=== PATIENT | female | born 1990 | race Caucasian/White ===

== ENCOUNTER → 2018-02-25 | Outpatient (CLI) | payer BC | END | disposition home or self-care (01) | LOC: LABWHC1 15:33 | PROVIDERS: ATTEND Internal Medicine Endocrinology, Diabetes & Metabolism | DX: E11.65 Type 2 diabetes mellitus with hyperglycemia (principal) | CPT/HCPCS: 36415; 82947; 84681 ==

== ENCOUNTER 2018-03-26 13:02 | Emergency (ER) | payer BC ==
[2018-03-26] MEDS ORDERED: LIDOCAINE/EPINEPHR/TETRACAINE 5 ML BOTTLE TOPICAL ONE (13:31)
[2018-03-26] MEDS ORDERED: LIDOCAINE 1% INJ 10MG/ML (20 ML MDV) SQ STA (13:32)
--- NOTE | 2018-03-26 14:44 | ED ---
Skin/Abscess/FB HPI - General Chief complaint: Skin/Abscess/Foreign Body Stated complaint: Female Time Seen by Provider: 03/26/18 13:11 Source: patient, RN notes reviewed, old records reviewed Mode of arrival: ambulatory Limitations: no limitations - History of Present Illness Initial comments: 27-year-old female presents today with swelling over the right side of her volva for the past week. Patient said she had two small pimples that had formed into one large abscess at this time. Patient states that she is had this happen before but she's always taking care of them on her own. Patient states that it' s painful for her to sit.Patient denies any fever chills. She denies any dysuria or hematuria.Patient also states that she was recently treated for a herpes infection. She say said that has cleared up at this time. Patient reports that she also has been shaving her pubic region which likely caused the initial pimples. - Related Data Home Medications Medication Instructions Recorded Confirmed Acyclovir 800 mg PO BID 03/26/18 03/26/18 glipiZIDE [Glucotrol] 5 mg PO DAILY 03/26/18 03/26/18 metFORMIN HCL 1,000 mg PO DAILY 03/26/18 03/26/18 Previous Rx's Medication Instructions Recorded Acetaminophen-Codeine 300-30mg 1 tab PO Q4H PRN 3 Days #18 tablet 03/26/18 [Tylenol w/codeine #3] Cephalexin [Keflex] 500 mg PO Q6H #40 cap 03/26/18 Sulfamethox-Tmp 800-160Mg [Bactrim 2 tab PO DAILY #40 tab 03/26/18 DS 800-160 mg] Allergies Allergy/AdvReac Type Severity Reaction Status Date / Time No Known Allergies Allergy Verified 03/26/18 13:45 Review of Systems ROS Statement: Those systems with pertinent positive or pertinent negative responses have been documented in the HPI. ROS Other: All systems not noted in ROS Statement are negative. Past Medical History Past Medical History: No Reported History History of Any Multi-Drug Resistant Organisms: None Reported Past Surgical History: Section, Tonsillectomy Past Psychological History: Anxiety Smoking Status: Never smoker Past Alcohol Use History: Occasional Past Drug Use History: None Reported General Exam - General Exam Comments Initial Comments: Pleasant 27 year old female. Limitations: no limitations General appearance: alert, in no apparent distress Head exam: Present: atraumatic, normocephalic, normal inspection Eye exam: Present: normal appearance, PERRL, EOMI. Absent: scleral icterus, conjunctival injection, periorbital swelling ENT exam: Present: normal exam, mucous membranes moist Neck exam: Present: normal inspection. Absent: tenderness, meningismus, lymphadenopathy Respiratory exam: Present: normal lung sounds bilaterally. Absent: respiratory distress, wheezes, rales, rhonchi, stridor Cardiovascular Exam: Present: regular rate, normal rhythm, tachycardia (120 bpm. Patient is anxious), normal heart sounds. Absent: systolic murmur, diastolic murmur, rubs, gallop, clicks GI/Abdominal exam: Present: soft, normal bowel sounds. Absent: distended, tenderness, guarding, rebound, rigid External exam: Present: erythema (erythema and palpable 5cm abscess over right vulva. ). Absent: normal external exam Speculum exam: Present: normal speculum exam By manual exam: Present: normal by manual exam Extremities exam: Present: normal inspection, full ROM, normal capillary refill. Absent: tenderness, pedal edema, joint swelling, calf tenderness Back exam: Present: normal inspection Neurological exam: Present: alert, oriented X3, CN II-XII intact Psychiatric exam: Present: normal affect, normal mood Skin exam: Present: warm, dry, intact, normal color. Absent: rash Course Vital Signs 03/26/18 03/26/18 13:12 14:51 Temperature 98.8 F 99.0 F Pulse Rate 121 H 122 H Respiratory 20 15 Rate Blood Pressure 139/82 125/79 O2 Sat by Pulse 97 97 Oximetry Procedures - Incision & Drainage Consent Obtained: verbal consent Site: vulva/vagina (Right vulva) Size (cm): 5 Anesthetic Used: lidocaine 1% Amount (mLs): 5 I&D Cleaning Method: Iodine Sterile Field Used?: Yes Scalpel Used: #11 I&D Drainage Obtained: Pus, Blood Packing: Iodoform Culture Obtained?: Yes Patient Tolerated Procedure: well, no complications Medical Decision Making - Medical Decision Making 27 year old presents with R vulva abscess related to shaving one week ago. She has underwent incision and drainage, approximately 10 cc of purulent fluid removed. At this time patient placed with iodoform gauze. Started on keflex and bactrim, aerobic wound culture obtained. She tolerated procedure well. Discussed return parameters including fever, chills, or worsening swelling. Discussed PCP and OB follow up. Discussed removing packing in 2 days and warm epsom salt baths. All questions answered. Disposition Clinical Impression: Vulvar abscess Disposition: HOME SELF-CARE Condition: Good Instructions: Abscess Incision and Drainage (ED), Abscess (ED) Additional Instructions: Patient advised to do warm Epsom salts soaks. Leave the packing in for the next 2 days. Taking all the antibiotics as prescribed. Follow-up promptly with primary care physician and [facility] [employer]. Return to the emergency department if any alarming signs or symptoms occur. Prescriptions: Acetaminophen-Codeine 300-30mg [Tylenol w/codeine #3] 1 tab PO Q4H PRN 3 Days # 18 tablet PRN Reason: Pain Cephalexin [Keflex] 500 mg PO Q6H #40 cap Sulfamethox-Tmp 800-160Mg [Bactrim DS 800-160 mg] 2 tab PO DAILY #40 tab Is patient prescribed a controlled substance at d/c from ED?: Yes When asked, does pt state using other controlled substances?: Yes If prescribed controlled substance>3 days was MAPS reviewed?: Prescribed <3 Days If opioid is for acute pain is fill amount 7 days or less?: Yes If Rx opioid, was Start Talking consent form obtained?: No Referrals: Davin Babcock MD [Primary Care Provider] - 1-2 days Efrain Causey MD [STAFF PHYSICIAN] - 1-2 days Time of Disposition: 14:43
[2018-03-26 14:52] VITALS: BP 125/79; PULSE 122; RESP 15; TEMP 99
== END 2018-03-26 14:58 | disposition home or self-care (01) ==
LOC: EC 13:02
DX: N76.4 Abscess of vulva (principal); Z79.84 Long term (current) use of oral hypoglycemic drugs; Z79.899 Other long term (current) drug therapy
CPT/HCPCS: 87070; 87205; 87077; 87186; 99283; 56405; J2001

== ENCOUNTER 2018-06-10 19:56 | Emergency (ER) | payer BC ==
[2018-06-10 20:53] LABS: Appearance,Urine Cloudy (Clear); Bilirubin,Urine Negative (Negative); Blood,Urine Large (Negative); Color,Urine Yellow; Glucose,Urine (UA) 4+ (Negative); Leukocyte Esterase,Urine Large (Negative); Mucus,Urine Rare /hpf; Nitrite,Urine Positive (Negative); PH, Urine 6.5 (5.0-8.0); Protein,Urine 2+ (Negative); RBC,Urine >182 /hpf (0-5); Specific Gravity,Urine 1.028 (1.001-1.035); Squamous Epithelial Cell,Urine 2 /hpf (0-4); Urobilinogen,Urine <2.0 mg/dL (<2.0); WBC,Urine >182 /hpf (0-5)
[2018-06-10 20:57] LABS: Ketones,Urine 2+ (Negative)
[2018-06-10] MEDS ORDERED: KETOROLAC 30 MG/ML 1 ML VIAL IVP STA (21:32)
[2018-06-10 21:36] LABS: Basophils % (A) 0 %; Eosinophils # (A) 0.2 k/uL (0-0.7); Eosinophils % (A) 2 %; HCT 42.3 % (34.0-46.0); HGB 15.2 gm/dL (11.4-16.0); Lymphocytes % (A) 20 %; MCV 94.2 fL (80.0-100.0); Monocytes # (A) 0.3 k/uL (0-1.0); Monocytes % (A) 3 %; Neutrophils # (A) 7.5 k/uL (1.3-7.7); Neutrophils % (A) 75 %; Platelet Count 248 k/uL (150-450); RBC 4.49 m/uL (3.80-5.40); RDW 12.6 % (11.5-15.5)
[2018-06-10] MEDS ORDERED: SODIUM CHLORIDE 0.9% 1,000 ML IV ONE ×2 (21:37→22:20)
--- NOTE | 2018-06-10 21:37 | ED ---
Abdominal Pain HPI - General Chief Complaint: Abdominal Pain Stated Complaint: Right Side Pain Time Seen by Provider: 06/10/18 21:07 Source: patient Mode of arrival: ambulatory Limitations: no limitations - History of Present Illness Initial Comments: This patient is a 27-year-old woman who presents to be evaluated for right lower quadrant abdominal pain. The patient states that she had been having what she thought were urinary tract infection type symptoms since Friday. She states that this meant that she was having a little bit of dysuria, frequency, and she noticed there was an odor to her urine. She states that since this morning little after 8, she has been experiencing colicky, sharp, right lower quadrant pains. She has not noted worsening or relieving factors. She states that the pain will become intense for 15 or 30 seconds, and then is moderate. It does not completely resolve. She has not noted any other coming symptoms. She denies nausea or vomiting. No real change in bowel movements. Last period ended approximately a week ago and was normal for her. MD Complaint: abdominal pain Onset/Timin -: hour(s) Location: RLQ Severity: moderate Quality: stabbing Consistency: colicky Improves With: nothing Worsens With: nothing Associated Symptoms: dysuria - Related Data Home Medications Medication Instructions Recorded Confirmed Acyclovir 800 mg PO BID 03/26/18 06/10/18 glipiZIDE [Glucotrol] 5 mg PO DAILY 03/26/18 06/10/18 metFORMIN HCL 1,000 mg PO DAILY 03/26/18 06/10/18 Albuterol Inhaler [Ventolin Hfa 1 - 2 puff INHALATION RT-Q6H PRN 06/10/18 Inhaler] [id number] [id number] 2 tab PO Q4HR PRN 06/10/18 06/10/18 [Excedrin] Ibuprofen [Motrin Ib] 800 - 1,200 mg PO Q6H PRN 06/10/18 06/10/18 Previous Rx's Medication Instructions Recorded Cephalexin [Keflex] 500 mg PO Q6HR #28 cap 06/10/18 Ciprofloxacin HCl [Cipro] 500 mg PO Q12HR #14 tablet 06/10/18 Allergies Allergy/AdvReac Type Severity Reaction Status Date / Time No Known Allergies Allergy Verified 10/10/18 21:29 Review of Systems ROS Statement: Those systems with pertinent positive or pertinent negative responses have been documented in the HPI. ROS Other: All systems not noted in ROS Statement are negative. Constitutional: Denies: fever, chills Respiratory: Denies: cough, dyspnea Cardiovascular: Denies: chest pain, palpitations, edema Gastrointestinal: Reports: abdominal pain. Denies: nausea, vomiting, diarrhea, constipation, melena, hematochezia Genitourinary: Reports: dysuria, frequency. Denies: hematuria, discharge, abnormal menses Musculoskeletal: Denies: back pain Skin: Denies: rash Neurological: Denies: headache, weakness, numbness Past Medical History Past Medical History: No Reported History History of Any Multi-Drug Resistant Organisms: MRSA Date of last positivie culture/infection: 03/26/18 MDRO Source:: WOUND Past Surgical History: Section, Tonsillectomy Past Psychological History: Anxiety Smoking Status: Never smoker Past Alcohol Use History: Occasional Past Drug Use History: None Reported General Exam Limitations: no limitations General appearance: alert, in no apparent distress Head exam: Present: atraumatic, normocephalic Eye exam: Present: normal appearance. Absent: scleral icterus, conjunctival injection ENT exam: Present: normal oropharynx Neck exam: Present: normal inspection Respiratory exam: Present: normal lung sounds bilaterally. Absent: respiratory distress, wheezes, rales, rhonchi, stridor Cardiovascular Exam: Present: regular rate, normal rhythm, normal heart sounds. Absent: systolic murmur, diastolic murmur, rubs, gallop GI/Abdominal exam: Present: soft, normal bowel sounds. Absent: distended, tenderness, guarding, rebound, rigid, mass, pulsatile mass, hernia Extremities exam: Present: normal inspection, normal capillary refill. Absent: pedal edema, calf tenderness Back exam: Present: normal inspection. Absent: CVA tenderness (R), CVA tenderness (L) Neurological exam: Present: alert Skin exam: Present: warm, dry, intact, normal color. Absent: rash Course Vital Signs 06/10/18 06/10/18 20:14 23:33 Temperature 98.6 F 99.0 F Pulse Rate 110 H 95 Respiratory 20 16 Rate Blood Pressure 170/99 140/76 O2 Sat by Pulse 99 96 Oximetry Medical Decision Making - Medical Decision Making Patient is 27-year-old woman with right lower quadrant pain. There are no gastrointestinal symptoms, and the exam is not suggestive of appendicitis, though there is some tenderness. There is no rebound or guarding. Patient declines pelvic examination. I discussed the findings of pyuria. The patient states she does not believe there is any chance of sexually transmitted infection. I did recommend gynecologic exam to assess the ovary, and the patient is declining at this point, stating she'll follow with the barrel centerer. Discussed risk of missed sexual transmitted infection, including scarring tubes, PID, infertility and worse. She does agree to return if there is any worsening or if there is no response to the antibiotic.. - Lab Data Result diagrams: 06/10/18 21:12 06/10/18 21:12 Lab Results 06/10/18 06/10/18 06/10/18 Range/Units 20:30 20:30 21:12 WBC (3.8-10.6) k/uL RBC (3.80-5.40) m/uL Hgb (11.4-16.0) gm/dL Hct (34.0-46.0) % MCV (80.0-100.0) fL MCH (25.0-35.0) pg MCHC (31.0-37.0) g/dL RDW (11.5-15.5) % Plt Count (150-450) k/uL Neutrophils % % Lymphocytes % % Monocytes % % Eosinophils % % Basophils % % Neutrophils # (1.3-7.7) k/uL Lymphocytes # (1.0-4.8) k/uL Monocytes # (0-1.0) k/uL Eosinophils # (0-0.7) k/uL Basophils # (0-0.2) k/uL Sodium 137 (137-145) mmol/L Potassium 4.4 (3.5-5.1) mmol/L Chloride 98 (98-107) mmol/L Carbon Dioxide 26 (22-30) mmol/L Anion Gap 13 mmol/L BUN 10 (7-17) mg/dL Creatinine 0.42 L (0.52-1.04) mg/dL Est GFR (CKD-EPI)AfAm >90 (>60 ml/min/1.73 sqM) Est GFR (CKD-EPI)NonAf >90 (>60 ml/min/1.73 sqM) Glucose 321 H (74-99) mg/dL POC Glucose (mg/dL) (75-99) mg/dL POC Glu Case Management Coordinator ID Calcium 10.0 (8.4-10.2) mg/dL Total Bilirubin 1.1 (0.2-1.3) mg/dL AST 24 (14-36) U/L ALT 26 (9-52) U/L Alkaline Phosphatase 101 (38-126) U/L Total Protein 7.4 (6.3-8.2) g/dL Albumin 4.3 (3.5-5.0) g/dL Amylase 37 (30-110) U/L Lipase 43 (23-300) U/L Urine Color Yellow Urine Appearance Cloudy H (Clear) Urine pH 6.5 (5.0-8.0) Ur Specific [place] 1.028 (1.001-1.035) Urine Protein 2+ H (Negative) Urine Glucose (UA) 4+ H (Negative) Urine Ketones 2+ H (Negative) Urine Blood Large H (Negative) Urine Nitrite Positive H (Negative) Urine Bilirubin Negative (Negative) Urine Urobilinogen <2.0 (<2.0) mg/dL Ur Leukocyte Esterase Large H (Negative) Urine RBC >182 H (0-5) /hpf Urine WBC >182 H (0-5) /hpf Urine WBC Clumps Moderate H (None) /hpf Ur Squamous Epith Cells 2 (0-4) /hpf Urine Mucus Rare H (None) /hpf Urine HCG, Qual Not Detected (Not Detectd) Acetone, Qual (Negative) 06/10/18 06/10/18 06/10/18 Range/Units 21:12 21:32 23:02 WBC 10.0 (3.8-10.6) k/uL RBC 4.49 (3.80-5.40) m/uL Hgb 15.2 (11.4-16.0) gm/dL Hct 42.3 (34.0-46.0) % MCV 94.2 (80.0-100.0) fL MCH 34.0 (25.0-35.0) pg MCHC 36.0 (31.0-37.0) g/dL RDW 12.6 (11.5-15.5) % Plt Count 248 (150-450) k/uL Neutrophils % 75 % Lymphocytes % 20 % Monocytes % 3 % Eosinophils % 2 % Basophils % 0 % Neutrophils # 7.5 (1.3-7.7) k/uL Lymphocytes # 2.0 (1.0-4.8) k/uL Monocytes # 0.3 (0-1.0) k/uL Eosinophils # 0.2 (0-0.7) k/uL Basophils # 0.0 (0-0.2) k/uL Sodium (137-145) mmol/L Potassium (3.5-5.1) mmol/L Chloride (98-107) mmol/L Carbon Dioxide (22-30) mmol/L Anion Gap mmol/L BUN (7-17) mg/dL Creatinine (0.52-1.04) mg/dL Est GFR (CKD-EPI)AfAm (>60 ml/min/1.73 sqM) Est GFR (CKD-EPI)NonAf (>60 ml/min/1.73 sqM) Glucose (74-99) mg/dL POC Glucose (mg/dL) 307 H (75-99) mg/dL POC Glu Case Management Coordinator ID Emeli Card Calcium (8.4-10.2) mg/dL Total Bilirubin (0.2-1.3) mg/dL AST (14-36) U/L ALT (9-52) U/L Alkaline Phosphatase (38-126) U/L Total Protein (6.3-8.2) g/dL Albumin (3.5-5.0) g/dL Amylase (30-110) U/L Lipase (23-300) U/L Urine Color Urine Appearance (Clear) Urine pH (5.0-8.0) Ur Specific [place] (1.001-1.035) Urine Protein (Negative) Urine Glucose (UA) (Negative) Urine Ketones (Negative) Urine Blood (Negative) Urine Nitrite (Negative) Urine Bilirubin (Negative) Urine Urobilinogen (<2.0) mg/dL Ur Leukocyte Esterase (Negative) Urine RBC (0-5) /hpf Urine WBC (0-5) /hpf Urine WBC Clumps (None) /hpf Ur Squamous Epith Cells (0-4) /hpf Urine Mucus (None) /hpf Urine HCG, Qual (Not Detectd) Acetone, Qual Negative (Negative) Disposition Clinical Impression: Urinary tract infection, Hyperglycemia Disposition: HOME SELF-CARE Condition: Good Instructions: Urinary Tract Infection in Women (ED), Diabetic Hyperglycemia (ED ) Prescriptions: Cephalexin [Keflex] 500 mg PO Q6HR #28 cap Ciprofloxacin HCl [Cipro] 500 mg PO Q12HR #14 tablet Is patient prescribed a controlled substance at d/c from ED?: No Referrals: Davin Babcock MD [Primary Care Provider] - 1-2 days
[2018-06-10 21:47] LABS: ALT 26 U/L (9-52); AST 24 U/L (14-36); Albumin 4.3 g/dL (3.5-5.0); Alkaline Phosphatase 101 U/L (38-126); Amylase 37 U/L (30-110); Anion Gap 13 mmol/L; Blood Urea Nitrogen 10 mg/dL (7-17); Carbon Dioxide 26 mmol/L (22-30); Chloride 98 mmol/L (98-107); Glucose 321 mg/dL (74-99); Lipase 43 U/L (23-300); Potassium 4.4 mmol/L (3.5-5.1); Sodium 137 mmol/L (137-145); Total Bilirubin 1.1 mg/dL (0.2-1.3); Total Protein 7.4 g/dL (6.3-8.2)
--- NOTE | 2018-06-10 22:18 | CT ---
EXAMINATION TYPE: CT abdomen pelvis wo con DATE OF EXAM: 06/10/2018 COMPARISON: None HISTORY: RLQ pain, nausea CT DLP: 580.4 mGycm Automated exposure control for dose reduction was used. TECHNIQUE: Helical acquisition of images was performed from the lung bases through the pelvis. FINDINGS: Lung bases are clear. There is no pleural effusion. Heart size is normal. There is no pericardial eff usion. Stomach appears normal. Liver spleen pancreas all bladder appear normal. Bile ducts are not dilated. There is no adrenal mass . Kidneys show normal size and contour. There is no hydronephrosis. Ureters are not dilated. There is n o retroperitoneal adenopathy. Bladder distends smoothly. Uterus is anteverted. There is no free fluid in the pelvis. Bony pelvis appears intact. There is no evidence of inguinal hernia. There are ingui nal lymph nodes that measure up to 1.5 cm. The appendix appears normal. There is no evidence of appen dicitis. I see no intestinal wall thickening. There are no dilated loops. There is no evidence of sapna al calculus. There is L5 spondylolysis. There is no spondylolisthesis. IMPRESSION: L5 SPONDYLOLYSIS. NO SPONDYLOLISTHESIS. NORMAL APPENDIX. NO RENAL STONE OR OBSTRUCTION. I DO NOT SEE A CAUSE FOR RIGHT LOWER QUADRANT PAIN. NONSPECIFIC INGUINAL LYMPH NODES.
[2018-06-10] MEDS ORDERED: INSULIN REGULAR 100 UNIT/ML VIAL SQ STA (22:20)
[2018-06-10 23:10] LABS: Glucose,Whole Blood 307 mg/dL (75-99)
[2018-06-10 23:38] VITALS: BP 140/76; PULSE 95; RESP 16; TEMP 99
[2018-06-10 23:44] LABS: Glucose,Whole Blood 295 mg/dL (75-99)
== END 2018-06-10 23:55 | disposition home or self-care (01) ==
LOC: EC 19:56
DX: N39.0 Urinary tract infection, site not specified (principal); R73.9 Hyperglycemia, unspecified; Z79.84 Long term (current) use of oral hypoglycemic drugs; Z86.14 Personal history of Methicillin resistant Staphylococcus aureus infection; Z53.29 Procedure and treatment not carried out because of patient's decision for other reasons
CPT/HCPCS: 99284; 96365; 96375; 96361; 36415; 80053; 82150; 82009; 83690; 85025; 81001; 81025; 74176; J0696; J1885

== ENCOUNTER 2018-11-20 09:51 | Emergency (ER) | payer BC ==
[2018-11-20] MEDS ORDERED: SODIUM CHLORIDE 0.9% 1,000 ML IV ONE (10:25)
--- NOTE | 2018-11-20 10:27 | ED ---
General Adult HPI - General Chief complaint: Recheck/Abnormal Lab/Rx Stated complaint: high blood sugar Time Seen by Provider: 11/20/18 10:21 Source: patient, RN notes reviewed, old records reviewed Mode of arrival: ambulatory Limitations: no limitations - History of Present Illness Initial comments: 28-year-old female history type 2 diabetes presents for evaluation of elevated blood glucose. Patient has a continuous glucose monitor on her left upper extremity, this read as high greater than 500. Patient does report he eating a biscuit, drinking Gatorade while at work. She felt slightly lightheaded and presented for evaluation. Patient changed the tenuous glucose monitor this morning, and does report that it takes 1-2 hours to calibrate. Denies nausea or vomiting. Denies chest pain or dyspnea. - Related Data Home Medications Medication Instructions Recorded Confirmed metFORMIN HCL 1,000 mg PO BID 03/26/18 11/20/18 Insulin Glargine,Hum.rec.anlog 40 units SQ HS 11/20/18 11/20/18 [Elle Quiroz] Previous Rx's Medication Instructions Recorded Cephalexin [Keflex] 500 mg PO Q12HR #20 cap 11/20/18 Allergies Allergy/AdvReac Type Severity Reaction Status Date / Time No Known Allergies Allergy Verified 11/20/18 10:14 Review of Systems ROS Statement: Those systems with pertinent positive or pertinent negative responses have been documented in the HPI. ROS Other: All systems not noted in ROS Statement are negative. Past Medical History Past Medical History: Diabetes Mellitus History of Any Multi-Drug Resistant Organisms: MRSA Date of last positivie culture/infection: 03/26/18 MDRO Source:: WOUND Past Surgical History: Section, Tonsillectomy Past Psychological History: Anxiety Smoking Status: Never smoker Past Alcohol Use History: Occasional Past Drug Use History: None Reported General Exam Limitations: no limitations General appearance: alert, in no apparent distress Head exam: Present: atraumatic, normocephalic Eye exam: Present: normal appearance, PERRL ENT exam: Present: normal exam Neck exam: Present: normal inspection. Absent: tenderness, meningismus Respiratory exam: Present: normal lung sounds bilaterally. Absent: respiratory distress, wheezes, rales Cardiovascular Exam: Present: regular rate, normal rhythm GI/Abdominal exam: Present: soft. Absent: distended, tenderness Extremities exam: Present: normal inspection, normal capillary refill. Absent: pedal edema, calf tenderness Neurological exam: Present: alert, oriented X3, CN II-XII intact. Absent: motor sensory deficit Psychiatric exam: Present: normal affect, normal mood Skin exam: Present: warm, dry, intact. Absent: cyanosis, diaphoretic Course Vital Signs 11/20/18 11/20/18 10:00 11:34 Temperature 98.5 F Pulse Rate 98 100 Respiratory 16 18 Rate Blood Pressure 145/89 145/100 O2 Sat by Pulse 100 100 Oximetry Medical Decision Making - Medical Decision Making 28-year-old female presenting with elevated blood sugar. She'll be down trending, given 1 L normal saline. Laboratory studies obtained, normal CBC, CMP is completely normal without CO2 of 27, normal anion gap, only abnormality is elevated blood sugar 275. Patient does have signs of urinary tract infection, nitrate positive, 26 white cells, rare bacteria. She is ketone negative on urin alysis. She is given a dose of Rocephin the emergency department, urine culture obtained, will be treated empirically for urinary tract infection. Patient's maintain oral hydration with non-sugary beverages. Return with worsening or changing symptoms. - Lab Data Result diagrams: 11/20/18 11:27 11/20/18 11:27 Lab Results 11/20/18 11/20/18 11/20/18 Range/Units 10:23 11:27 11:27 WBC 7.1 (3.8-10.6) k/uL RBC 4.47 (3.80-5.40) m/uL Hgb 14.4 (11.4-16.0) gm/dL Hct 42.6 (34.0-46.0) % MCV 95.2 (80.0-100.0) fL MCH 32.1 (25.0-35.0) pg MCHC 33.7 (31.0-37.0) g/dL RDW 12.9 (11.5-15.5) % Plt Count 263 (150-450) k/uL Neutrophils % 67 % Lymphocytes % 26 % Monocytes % 4 % Eosinophils % 2 % Basophils % 1 % Neutrophils # 4.7 (1.3-7.7) k/uL Lymphocytes # 1.8 (1.0-4.8) k/uL Monocytes # 0.3 (0-1.0) k/uL Eosinophils # 0.1 (0-0.7) k/uL Basophils # 0.1 (0-0.2) k/uL Sodium 137 (137-145) mmol/L Potassium 4.7 (3.5-5.1) mmol/L Chloride 104 (98-107) mmol/L Carbon Dioxide 27 (22-30) mmol/L Anion Gap 6 mmol/L BUN 19 H (7-17) mg/dL Creatinine 0.48 L (0.52-1.04) mg/dL Est GFR (CKD-EPI)AfAm >90 (>60 ml/min/1.73 sqM) Est GFR (CKD-EPI)NonAf >90 (>60 ml/min/1.73 sqM) Glucose 272 H (74-99) mg/dL POC Glucose (mg/dL) 335 H (75-99) mg/dL POC Glu Metal Finish Inspector ID November Calcium 9.5 (8.4-10.2) mg/dL Total Bilirubin 0.8 (0.2-1.3) mg/dL AST 22 (14-36) U/L ALT 30 (9-52) U/L Alkaline Phosphatase 103 (38-126) U/L Total Protein 7.1 (6.3-8.2) g/dL Albumin 4.1 (3.5-5.0) g/dL Urine Color Urine Appearance (Clear) Urine pH (5.0-8.0) Ur Specific [place] (1.001-1.035) Urine Protein (Negative) Urine Glucose (UA) (Negative) Urine Ketones (Negative) Urine Blood (Negative) Urine Nitrite (Negative) Urine Bilirubin (Negative) Urine Urobilinogen (<2.0) mg/dL Ur Leukocyte Esterase (Negative) Urine RBC (0-5) /hpf Urine WBC (0-5) /hpf Ur Squamous Epith Cells (0-4) /hpf Urine Bacteria (None) /hpf Urine Mucus (None) /hpf Urine HCG, Qual (Not Detectd) 11/20/18 11/20/18 Range/Units 11:27 11:27 WBC (3.8-10.6) k/uL RBC (3.80-5.40) m/uL Hgb (11.4-16.0) gm/dL Hct (34.0-46.0) % MCV (80.0-100.0) fL MCH (25.0-35.0) pg MCHC (31.0-37.0) g/dL RDW (11.5-15.5) % Plt Count (150-450) k/uL Neutrophils % % Lymphocytes % % Monocytes % % Eosinophils % % Basophils % % Neutrophils # (1.3-7.7) k/uL Lymphocytes # (1.0-4.8) k/uL Monocytes # (0-1.0) k/uL Eosinophils # (0-0.7) k/uL Basophils # (0-0.2) k/uL Sodium (137-145) mmol/L Potassium (3.5-5.1) mmol/L Chloride (98-107) mmol/L Carbon Dioxide (22-30) mmol/L Anion Gap mmol/L BUN (7-17) mg/dL Creatinine (0.52-1.04) mg/dL Est GFR (CKD-EPI)AfAm (>60 ml/min/1.73 sqM) Est GFR (CKD-EPI)NonAf (>60 ml/min/1.73 sqM) Glucose (74-99) mg/dL POC Glucose (mg/dL) (75-99) mg/dL POC Glu Metal Finish Inspector ID Calcium (8.4-10.2) mg/dL Total Bilirubin (0.2-1.3) mg/dL AST (14-36) U/L ALT (9-52) U/L Alkaline Phosphatase (38-126) U/L Total Protein (6.3-8.2) g/dL Albumin (3.5-5.0) g/dL Urine Color Light Yellow Urine Appearance Cloudy H (Clear) Urine pH 5.5 (5.0-8.0) Ur Specific [place] 1.026 (1.001-1.035) Urine Protein Negative (Negative) Urine Glucose (UA) 4+ H (Negative) Urine Ketones Negative (Negative) Urine Blood Moderate H (Negative) Urine Nitrite Positive H (Negative) Urine Bilirubin Negative (Negative) Urine Urobilinogen <2.0 (<2.0) mg/dL Ur Leukocyte Esterase Large H (Negative) Urine RBC 111 H (0-5) /hpf Urine WBC 26 H (0-5) /hpf Ur Squamous Epith Cells 6 H (0-4) /hpf Urine Bacteria Occasional H (None) /hpf Urine Mucus Rare H (None) /hpf Urine HCG, Qual Not Detected (Not Detectd) Disposition Clinical Impression: Diabetes, Hyperglycemia, UTI (urinary tract infection) Disposition: HOME SELF-CARE Condition: Good Instructions (If sedation given, give patient instructions): Urinary Tract Infection in Women (ED), Diabetic Hyperglycemia (ED) Prescriptions: Cephalexin [Keflex] 500 mg PO Q12HR #20 cap Is patient prescribed a controlled substance at d/c from ED?: No Referrals: Davin Babcock MD [Primary Care Provider] - 1-2 days Time of Disposition: 12:15
[2018-11-20 10:28] LABS: Glucose,Whole Blood 335 mg/dL (75-99)
[2018-11-20 11:35] VITALS: RESP 18
[2018-11-20 11:53] LABS: Basophils # (A) 0.1 k/uL (0-0.2); Basophils % (A) 1 %; Eosinophils # (A) 0.1 k/uL (0-0.7); Eosinophils % (A) 2 %; HCT 42.6 % (34.0-46.0); HGB 14.4 gm/dL (11.4-16.0); Lymphocytes # (A) 1.8 k/uL (1.0-4.8); Lymphocytes % (A) 26 %; MCH 32.1 pg (25.0-35.0); MCHC 33.7 g/dL (31.0-37.0); MCV 95.2 fL (80.0-100.0); Monocytes # (A) 0.3 k/uL (0-1.0); Monocytes % (A) 4 %; Neutrophils # (A) 4.7 k/uL (1.3-7.7); Neutrophils % (A) 67 %; Platelet Count 263 k/uL (150-450); RBC 4.47 m/uL (3.80-5.40); RDW 12.9 % (11.5-15.5); WBC 7.1 k/uL (3.8-10.6)
[2018-11-20 12:00] LABS: Albumin 4.1 g/dL (3.5-5.0); Anion Gap 6 mmol/L; Appearance,Urine Cloudy (Clear); Bacteria,Urine Occasional /hpf; Bilirubin,Urine Negative (Negative); Blood Urea Nitrogen 19 mg/dL (7-17); Blood,Urine Moderate (Negative); Calcium 9.5 mg/dL (8.4-10.2); Carbon Dioxide 27 mmol/L (22-30); Chloride 104 mmol/L (98-107); Color,Urine Light Yellow; Glucose 272 mg/dL (74-99); Glucose,Urine (UA) 4+ (Negative); Ketones,Urine Negative (Negative); Leukocyte Esterase,Urine Large (Negative); Mucus,Urine Rare /hpf; Nitrite,Urine Positive (Negative); PH, Urine 5.5 (5.0-8.0); Protein,Urine Negative (Negative); RBC,Urine 111 /hpf (0-5); Sodium 137 mmol/L (137-145); Specific Gravity,Urine 1.026 (1.001-1.035); Squamous Epithelial Cell,Urine 6 /hpf (0-4); Total Bilirubin 0.8 mg/dL (0.2-1.3); Total Protein 7.1 g/dL (6.3-8.2); Urobilinogen,Urine <2.0 mg/dL (<2.0); WBC,Urine 26 /hpf (0-5)
[2018-11-20] MEDS ORDERED: cefTRIAXone IN SWFI 1,000 MG/10 ML SYRINGE IVP STA (12:02)
[2018-11-20 12:03] LABS: ALT 30 U/L (9-52); AST 22 U/L (14-36); Alkaline Phosphatase 103 U/L (38-126); Potassium 4.7 mmol/L (3.5-5.1)
[2018-11-20 13:11] VITALS: BP 134/97; PULSE 86; TEMP 98.4
== END 2018-11-20 13:01 | disposition home or self-care (01) ==
LOC: EC 09:51
DX: E11.65 Type 2 diabetes mellitus with hyperglycemia (principal); N39.0 Urinary tract infection, site not specified; R42 Dizziness and giddiness; Z86.14 Personal history of Methicillin resistant Staphylococcus aureus infection; Z79.4 Long term (current) use of insulin
CPT/HCPCS: 36415; 80053; 85025; 81001; 81025; 87086; 87077; 87186; 99284; 96374; 96361; J0696

== ENCOUNTER 2020-04-20 14:56 | Emergency (ER) | payer OTHER ==
[2020-04-20 15:03] VITALS: RESP 18
[2020-04-20] MEDS ORDERED: SODIUM CHLORIDE 0.9% 1,000 ML IV STA (15:13)
--- NOTE | 2020-04-20 15:27 | ED ---
Arrhythmia/Palpitations HPI - General Chief Complaint: Arrhythmia/Palpitations Stated Complaint: palpitations Time Seen by Provider: 04/20/20 15:00 Source: patient Mode of arrival: ambulatory Limitations: no limitations - History of Present Illness Initial Comments: 29-year-old female past medical history of asthma, diabetes presents emergency room for palpitations. States that she was at work when she had sudden onset of palpitations. Reports she normally has a higher heart rates and normal however felt that this was excessive today. 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 Admits to drinking a mom sister today however normally drinks 1 daily or at least every other day. She also used her inhaler 3 times today and took some Midol as she recently started her menstrual cycle. She admits she feels that she can't catch her breath. No fevers, chills or cough. No hemoptysis. No history of DVT or PE. No lower extremity swelling. No family history of blood clotting disorders. D enies chest pain. No family history of cardiac disease. No abdominal pain or changes in her bowel or bladder habits. No concern for . No other alleviating, precipitating or modifying factors - Related Data Home Medications Medication Instructions Recorded Confirmed Insulin Glargine,Hum.rec.anlog 40 unit SQ QAM 04/20/20 04/20/20 [Basaglar Kwikpen U-100] Meloxicam 15 mg PO DAILY 04/20/20 04/20/20 metFORMIN HCL [metFORMIN HCL ER] 1,000 mg PO BID 04/20/20 04/20/20 Allergies Allergy/AdvReac Type Severity Reaction Status Date / Time No Known Allergies Allergy Verified 04/20/20 16:05 Review of Systems ROS Statement: Those systems with pertinent positive or pertinent negative responses have been documented in the HPI. ROS Other: All systems not noted in ROS Statement are negative. Past Medical History Past Medical History: Diabetes Mellitus, Thyroid Disorder History of Any Multi-Drug Resistant Organisms: MRSA Date of last positivie culture/infection: 03/26/18 MDRO Source:: WOUND Past Surgical History: Section, Tonsillectomy Past Psychological History: No Psychological Hx Reported Smoking Status: Never smoker Past Alcohol Use History: Occasional Past Drug Use History: None Reported General Exam Limitations: no limitations General appearance: alert, in no apparent distress Head exam: Present: atraumatic, normocephalic, normal inspection Eye exam: Present: normal appearance, PERRL, EOMI. Absent: scleral icterus, conjunctival injection, periorbital swelling ENT exam: Present: normal exam, mucous membranes moist Neck exam: Present: normal inspection. Absent: tenderness, meningismus, lymphadenopathy Respiratory exam: Present: normal lung sounds bilaterally. Absent: respiratory distress, wheezes, rales, rhonchi, stridor Cardiovascular Exam: Present: normal rhythm, tachycardia, normal heart sounds. Absent: systolic murmur, diastolic murmur, rubs, gallop, clicks GI/Abdominal exam: Present: soft, normal bowel sounds. Absent: distended, tenderness, guarding, rebound, rigid Extremities exam: Present: normal inspection, full ROM, normal capillary refill. Absent: tenderness, pedal edema, joint swelling, calf tenderness Back exam: Present: normal inspection Neurological exam: Present: alert, oriented X3, CN II-XII intact Psychiatric exam: Present: normal affect, normal mood Skin exam: Present: warm, dry, intact, normal color. Absent: rash Course Vital Signs 04/20/20 04/20/20 04/20/20 15:00 15:31 15:59 Temperature 98.2 F 98.3 F Pulse Rate 126 H 118 H 116 H Respiratory 18 18 18 Rate Blood Pressure 171/97 164/93 165/107 O2 Sat by Pulse 99 98 100 Oximetry EKG Findings - EKG Comments: EKG Findings:: EKG demonstrates sinus tachycardia with a ventricular rate of 121. MN interval 126. QRS 86. QTC of 477. No acute ST segment elevations or depressions concerning for ischemic changes. No signs of stone Parkinson White or Brugada syndrome. Medical Decision Making - Medical Decision Making Upon arrival the patient is placed into room 19. A thorough history and physical exam is performed per patient is hooked up to continuous pulse ox and cardiac monitoring. 12-lead EKG was performed which demonstrates a sinus tachycardia. Labs studies were conducted and a chest x-ray was performed. Sodium mildly low at 133. D-dimer negative at 0.44. Glucose elevated at 253 however the patient does not have an anion gap. TSH is 5.6. Free T4 1 0.23. Chest x-ray demonstrates no acute process. I did discuss results with the patient. She is reevaluated and the patient does have improvement in her heart rate to 110. Patient states this is her normal resting heart rate. Inform the patient that due to her persistent tachycardia I did recommend evaluation by cardiology even though this is something that has been persistent for her. I recommended Holter monitoring and echo for which the patient understood. I did recommend the [facility]. Patient is to decrease caffeine intake. I requested a urine sample for testing however the patient is adamant that she is not and she is on her menstrual cycle. Return to the emergency department for any new or worsening symptoms. Patient was discharged home in stable condition - Lab Data Result diagrams: 04/20/20 15:29 04/20/20 15:29 Lab Results 04/20/20 04/20/20 04/20/20 Range/Units 15:29 15:29 15:29 WBC 8.3 (3.8-10.6) k/uL RBC 4.29 (3.80-5.40) m/uL Hgb 12.9 (11.4-16.0) gm/dL Hct 38.5 (34.0-46.0) % MCV 89.7 (80.0-100.0) fL MCH 30.1 (25.0-35.0) pg MCHC 33.5 (31.0-37.0) g/dL RDW 14.1 (11.5-15.5) % Plt Count 286 (150-450) k/uL Neutrophils % 72 % Lymphocytes % 22 % Monocytes % 3 % Eosinophils % 2 % Basophils % 1 % Neutrophils # 6.0 (1.3-7.7) k/uL Lymphocytes # 1.8 (1.0-4.8) k/uL Monocytes # 0.2 (0-1.0) k/uL Eosinophils # 0.2 (0-0.7) k/uL Basophils # 0.0 (0-0.2) k/uL PT 9.3 (9.0-12.0) sec INR 0.9 (<1.2) APTT 23.5 (22.0-30.0) sec D-Dimer 0.44 (<0.60) mg/L FEU Sodium 133 L (137-145) mmol/L Potassium 3.9 (3.5-5.1) mmol/L Chloride 99 (98-107) mmol/L Carbon Dioxide 25 (22-30) mmol/L Anion Gap 9 mmol/L BUN 17 (7-17) mg/dL Creatinine 0.55 (0.52-1.04) mg/dL Est GFR (CKD-EPI)AfAm >90 (>60 ml/min/1.73 sqM) Est GFR (CKD-EPI)NonAf >90 (>60 ml/min/1.73 sqM) Glucose 253 H (74-99) mg/dL Calcium 8.7 (8.4-10.2) mg/dL Magnesium 1.4 L (1.6-2.3) mg/dL Total Bilirubin 0.3 (0.2-1.3) mg/dL AST 20 (14-36) U/L ALT 17 (4-34) U/L Alkaline Phosphatase 106 (38-126) U/L Troponin I (0.000-0.034) ng/mL Total Protein 6.4 (6.3-8.2) g/dL Albumin 3.7 (3.5-5.0) g/dL TSH 5.610 H (0.465-4.680) mIU/L Free T4 1.23 (0.78-2.19) ng/dL 04/20/20 Range/Units 15:29 WBC (3.8-10.6) k/uL RBC (3.80-5.40) m/uL Hgb (11.4-16.0) gm/dL Hct (34.0-46.0) % MCV (80.0-100.0) fL MCH (25.0-35.0) pg MCHC (31.0-37.0) g/dL RDW (11.5-15.5) % Plt Count (150-450) k/uL Neutrophils % % Lymphocytes % % Monocytes % % Eosinophils % % Basophils % % Neutrophils # (1.3-7.7) k/uL Lymphocytes # (1.0-4.8) k/uL Monocytes # (0-1.0) k/uL Eosinophils # (0-0.7) k/uL Basophils # (0-0.2) k/uL PT (9.0-12.0) sec INR (<1.2) APTT (22.0-30.0) sec D-Dimer (<0.60) mg/L FEU Sodium (137-145) mmol/L Potassium (3.5-5.1) mmol/L Chloride (98-107) mmol/L Carbon Dioxide (22-30) mmol/L Anion Gap mmol/L BUN (7-17) mg/dL Creatinine (0.52-1.04) mg/dL Est GFR (CKD-EPI)AfAm (>60 ml/min/1.73 sqM) Est GFR (CKD-EPI)NonAf (>60 ml/min/1.73 sqM) Glucose (74-99) mg/dL Calcium (8.4-10.2) mg/dL Magnesium (1.6-2.3) mg/dL Total Bilirubin (0.2-1.3) mg/dL AST (14-36) U/L ALT (4-34) U/L Alkaline Phosphatase (38-126) U/L Troponin I <0.012 (0.000-0.034) ng/mL Total Protein (6.3-8.2) g/dL Albumin (3.5-5.0) g/dL TSH (0.465-4.680) mIU/L Free T4 (0.78-2.19) ng/dL Disposition Clinical Impression: Palpitations, Sinus tachycardia Disposition: HOME SELF-CARE Condition: Stable Instructions (If sedation given, give patient instructions): Heart Palpitations (ED) Additional Instructions: I recommend that you follow-up with the [facility] for Holter monitoring and an echo. Return to the emergency room for any new or worsening symptoms Is patient prescribed a controlled substance at d/c from ED?: No Referrals: Davin Babcock MD [Primary Care Provider] - 1-2 days Time of Disposition: 16:52
[2020-04-20 15:37] LABS: Basophils % (A) 1 %; Eosinophils # (A) 0.2 k/uL (0-0.7); Eosinophils % (A) 2 %; HCT 38.5 % (34.0-46.0); HGB 12.9 gm/dL (11.4-16.0); Lymphocytes # (A) 1.8 k/uL (1.0-4.8); Lymphocytes % (A) 22 %; MCH 30.1 pg (25.0-35.0); MCHC 33.5 g/dL (31.0-37.0); MCV 89.7 fL (80.0-100.0); Mean Platelet Volume 8.8; Monocytes # (A) 0.2 k/uL (0-1.0); Monocytes % (A) 3 %; Neutrophils % (A) 72 %; Platelet Count 286 k/uL (150-450); RBC 4.29 m/uL (3.80-5.40); RDW 14.1 % (11.5-15.5); WBC 8.3 k/uL (3.8-10.6)
--- NOTE | 2020-04-20 15:41 | XR ---
EXAMINATION TYPE: XR chest 2V DATE OF EXAM: 04/20/2020 COMPARISON: NONE TECHNIQUE: PA and lateral views submitted. HISTORY: FINDINGS: The lungs are clear and there is no pneumothorax, pleural effusion, or focal pneumonia. Dysrhythmia Limited inspiration. No overt failure. IMPRESSION: 1. No acute process.
[2020-04-20 15:49] LABS: ALT 17 U/L (4-34); AST 20 U/L (14-36); African American GFR (CKD) >90 (>60 ml/min/1.73 sqM); Albumin 3.7 g/dL (3.5-5.0); Alkaline Phosphatase 106 U/L (38-126); Anion Gap 9 mmol/L; Blood Urea Nitrogen 17 mg/dL (7-17); Calcium 8.7 mg/dL (8.4-10.2); Carbon Dioxide 25 mmol/L (22-30); Chloride 99 mmol/L (98-107); Glucose 253 mg/dL (74-99); Magnesium 1.4 mg/dL (1.6-2.3); Non-African American GFR(CKD) >90 (>60 ml/min/1.73 sqM); Potassium 3.9 mmol/L (3.5-5.1); Sodium 133 mmol/L (137-145); Total Bilirubin 0.3 mg/dL (0.2-1.3); Total Protein 6.4 g/dL (6.3-8.2)
[2020-04-20 15:52] LABS: D-Dimer 0.44 mg/L FEU (<0.60); INR 0.9 (<1.2); Partial Thromboplastin Time 23.5 sec (22.0-30.0); Prothrombin Time 9.3 sec (9.0-12.0)
[2020-04-20 16:01] VITALS: BP 165/107; PULSE 116; TEMP 98.3
[2020-04-20 17:02] LABS: T4, Free (Free Thyroxine) 1.23 ng/dL (0.78-2.19)
== END 2020-04-20 17:01 | disposition home or self-care (01) ==
LOC: EC 14:56
DX: R00.2 Palpitations (principal); R00.0 Tachycardia, unspecified; E11.9 Type 2 diabetes mellitus without complications; Z79.4 Long term (current) use of insulin; Z86.14 Personal history of Methicillin resistant Staphylococcus aureus infection
CPT/HCPCS: 36415; 71046; 80053; 83735; 84439; 84443; 84484; 85025; 85379; 85610; 85730; 93005; 96360; 99285

== ENCOUNTER 2020-08-28 17:51 | Emergency (ER) | payer BC, OTHER ==
[2020-08-28 18:01] VITALS: BP 165/88; PULSE 118; RESP 18; TEMP 99.3
[2020-08-28] MEDS ORDERED: ONDANSETRON 4 MG/2 ML VIAL IVP STA (18:28)
[2020-08-28] MEDS ORDERED: SODIUM CHLORIDE 0.9% 1,000 ML IV STA (18:28)
[2020-08-28] MEDS ORDERED: ACETAMINOPHEN TAB 500 MG TAB PO STA (18:29)
[2020-08-28] MEDS ORDERED: FAMOTIDINE 20 MG/2 ML VIAL IV STA (18:29)
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
[2020-08-28 18:52] LABS: ALT 23 U/L (4-34); AST 21 U/L (14-36); African American GFR (CKD) >90 (>60 ml/min/1.73 sqM); Alkaline Phosphatase 113 U/L (38-126); Amylase 32 U/L (30-110); Anion Gap 7 mmol/L; Blood Urea Nitrogen 17 mg/dL (7-17); Calcium 9.3 mg/dL (8.4-10.2); Carbon Dioxide 29 mmol/L (22-30); Chloride 95 mmol/L (98-107); Glucose 308 mg/dL (74-99); Lipase 35 U/L (23-300); Non-African American GFR(CKD) >90 (>60 ml/min/1.73 sqM); Potassium 4.2 mmol/L (3.5-5.1); Sodium 131 mmol/L (137-145); Total Bilirubin 0.6 mg/dL (0.2-1.3); Total Protein 7.4 g/dL (6.3-8.2)
[2020-08-28 18:55] LABS: Appearance,Urine Turbid (Clear); Bacteria,Urine Rare /hpf; Bilirubin,Urine Negative (Negative); Blood,Urine Small (Negative); Color,Urine Yellow; Glucose,Urine (UA) 4+ (Negative); Ketones,Urine Negative (Negative); Leukocyte Esterase,Urine Large (Negative); Mucus,Urine Rare /hpf; Nitrite,Urine Positive (Negative); PH, Urine 5.5 (5.0-8.0); Protein,Urine 2+ (Negative); RBC,Urine 17 /hpf (0-5); Specific Gravity,Urine 1.023 (1.001-1.035); Squamous Epithelial Cell,Urine 7 /hpf (0-4); Urobilinogen,Urine <2.0 mg/dL (<2.0); WBC,Urine >182 /hpf (0-5)
[2020-08-28 19:08] LABS: Basophils # (A) 0.1 k/uL (0-0.2); Basophils % (A) 1 %; Eosinophils # (A) 0.3 k/uL (0-0.7); Eosinophils % (A) 3 %; HCT 38.2 % (34.0-46.0); HGB 13.5 gm/dL (11.4-16.0); Lymphocytes # (A) 1.2 k/uL (1.0-4.8); Lymphocytes % (A) 13 %; MCHC 35.2 g/dL (31.0-37.0); Mean Platelet Volume 8.1; Monocytes # (A) 0.3 k/uL (0-1.0); Monocytes % (A) 4 %; Neutrophils # (A) 7.3 k/uL (1.3-7.7); Neutrophils % (A) 79 %; Platelet Count 261 k/uL (150-450); RDW 14.1 % (11.5-15.5); WBC 9.3 k/uL (3.8-10.6)
[2020-08-28] MEDS ORDERED: INSULIN REGULAR 100 UNIT/ML VIAL SQ ONE (19:32)
[2020-08-28] MEDS ORDERED: cefTRIAXone IN SWFI 1,000 MG/10 ML SYRINGE IVP STA (19:33)
== END 2020-08-28 20:18 | disposition home or self-care (01) ==
LOC: EC 17:51
DX: N39.0 Urinary tract infection, site not specified (principal); R11.10 Vomiting, unspecified; E11.9 Type 2 diabetes mellitus without complications; E07.9 Disorder of thyroid, unspecified; Z79.4 Long term (current) use of insulin; Z79.1 Long term (current) use of non-steroidal anti-inflammatories (NSAID); Z79.890 Hormone replacement therapy; Z79.899 Other long term (current) drug therapy
CPT/HCPCS: 36415; 80053; 82150; 82009; 83690; 85025; 81001; 81025; 87086; 87077; 87186; 99284; 96374; 96375 ×2; 96361; J2405; J0696

== ENCOUNTER → 2020-08-28 | Outpatient (CLI) | payer BC, OTHER | END | disposition home or self-care (01) | LOC: LABWHC1 10:21 | PROVIDERS: ATTEND Nurse Practitioner | DX: U07.1 COVID-19 (principal) | CPT/HCPCS: 87502; U0003; C9803 ==

== ENCOUNTER 2021-01-08 21:55 | Observation (INO) | payer BC, OTHER ==
[2021-01-08] MEDS ORDERED: HYDROmorphone 1 MG/ML 1 ML SYRINGE IVP ONE (23:43)
[2021-01-08] MEDS ORDERED: ONDANSETRON 4 MG/2 ML VIAL IVP STA (23:43)
[2021-01-08] MEDS ORDERED: SODIUM CHLORIDE 0.9% 500 ML 500 ML IV STA (23:43)
[2021-01-09 00:41] LABS: Basophils % (A) 0 %; Eosinophils # (A) 0.4 k/uL (0-0.7); Eosinophils % (A) 2 %; HCT 34.5 % (34.0-46.0); HGB 11.9 gm/dL (11.4-16.0); Lymphocytes # (A) 1.5 k/uL (1.0-4.8); Lymphocytes % (A) 9 %; MCH 31.3 pg (25.0-35.0); MCHC 34.6 g/dL (31.0-37.0); MCV 90.5 fL (80.0-100.0); Monocytes # (A) 0.5 k/uL (0-1.0); Monocytes % (A) 3 %; Neutrophils # (A) 14.3 k/uL (1.3-7.7); Neutrophils % (A) 85 %; Platelet Count 329 k/uL (150-450); RBC 3.81 m/uL (3.80-5.40); RDW 13.9 % (11.5-15.5); WBC 16.8 k/uL (3.8-10.6)
[2021-01-09 00:56] LABS: ALT 16 U/L (4-34); AST 22 U/L (14-36); African American GFR (CKD) >90 (>60 ml/min/1.73 sqM); Albumin 3.3 g/dL (3.5-5.0); Alkaline Phosphatase 98 U/L (38-126); Anion Gap 7 mmol/L; Blood Urea Nitrogen 18 mg/dL (7-17); Carbon Dioxide 27 mmol/L (22-30); Chloride 104 mmol/L (98-107); Glucose 132 mg/dL (74-99); Lipase 49 U/L (23-300); Non-African American GFR(CKD) >90 (>60 ml/min/1.73 sqM); Potassium 4.1 mmol/L (3.5-5.1); Sodium 138 mmol/L (137-145); Total Bilirubin 0.4 mg/dL (0.2-1.3); Total Protein 6.1 g/dL (6.3-8.2)
[2021-01-09 01:09] LABS: Appearance,Urine Clear (Clear); Bacteria,Urine Rare /hpf; Bilirubin,Urine Negative (Negative); Blood,Urine Trace (Negative); Color,Urine Yellow; Glucose,Urine (UA) Negative (Negative); Ketones,Urine Negative (Negative); Leukocyte Esterase,Urine Negative (Negative); Mucus,Urine Occasional /hpf; Nitrite,Urine Negative (Negative); PH, Urine 5.5 (5.0-8.0); Protein,Urine Trace (Negative); RBC,Urine 1 /hpf (0-5); Specific Gravity,Urine 1.031 (1.001-1.035); Squamous Epithelial Cell,Urine 3 /hpf (0-4); Urobilinogen,Urine <2.0 mg/dL (<2.0); WBC,Urine 2 /hpf (0-5)
--- NOTE | 2021-01-09 01:39 | US ---
EXAM: US Pelvis Transabdominal and Transvaginal, Complete CLINICAL HISTORY: ITS.REASON US Reason: Pelvic pain after procedure TECHNIQUE: Real-time complete transabdominal and transvaginal pelvic ultrasound with image documentation. Transvaginal imaging was used for better evaluation of the endometrium and adnexa. COMPARISON: No relevant prior studies available. FINDINGS: Uterus/cervix: 8.4 x 4.6 x 3.7 cm. Normal endometrial stripe thickness at 4 mm. No myometrial mass. Right ovary: 3.8 x 2.4 x 2.8 cm. No mass. Normal blood flow. 12 x 5 x 13 mm cyst. Left ovary: 2.2 x 2.0 x 2.2 cm. No mass. Normal blood flow. 1.6 cm cyst. Free fluid: No free fluid. Bladder: Unremarkable as visualized. Wall is normal thickness for degree of distention. IMPRESSION: Small bilateral ovarian cysts. Otherwise unremarkable exam.
--- NOTE | 2021-01-09 02:31 | ED ---
Abdominal Pain HPI - General Chief Complaint: Abdominal Pain Stated Complaint: abdominal pain Time Seen by Provider: 01/08/21 22:32 Source: patient Mode of arrival: ambulatory Limitations: no limitations - History of Present Illness Initial Comments: 30 year-old female patient who underwent hysterosalpingogram earlier today presents to the emergency department for evaluation of abdominal pain and cramping. States that procedure was around 1pm, pain started around 5pm and has been getting worse. She reports pelvic cramping and pain in the upper abdomen. Denies any vomiting. Denies any vaginal discharge or bleeding. Denies any fever or chills. Did take ibuprofen at home without relief. Patient denies any recent rash, cough, shortness of breath, chest pain, diarrhea, constipation, back pain, numbness, tingling, dizziness, weakness, hematuria, dysuria, urinary urgency, urinary frequency, headache, visual changes, or any other complaints. - Related Data Home Medications Medication Instructions Recorded Confirmed Insulin Glargine,Hum.rec.anlog 20 unit SQ DAILY 04/20/20 08/28/20 [Basaglar Kwikpen U-100] Meloxicam 15 mg PO DAILY 04/20/20 08/28/20 metFORMIN HCL [metFORMIN HCL ER] 1,000 mg PO BID 04/20/20 08/28/20 Dulaglutide [Trulicity] 0.75 mg SQ MIRELES 08/28/20 08/28/20 Fluticasone Nasal [place] [Flonase 1 spr EA NOSTRIL DAILY PRN 08/28/20 08/28/20 Nasal [place]] Levothyroxine Sodium [Synthroid] 50 mcg PO DAILY 08/28/20 08/28/20 Metoprolol Succinate [Toprol XL] 25 mg PO DAILY 08/28/20 08/28/20 SILVER sulfADIAZINE Cream 1 applic TOPICAL BID 08/28/20 08/28/20 [Silvadene 1% Cream] lisinopriL [Zestril] 5 mg PO DAILY 08/28/20 08/28/20 Previous Rx's Medication Instructions Recorded Ondansetron Odt [Zofran Odt] 4 mg PO Q8HR PRN #10 tab 08/28/20 Sulfamethox-Tmp 800-160Mg [Bactrim 1 each PO Q12HR #20 tab 08/28/20 DS 800-160 mg] Allergies Allergy/AdvReac Type Severity Reaction Status Date / Time No Known Allergies Allergy Verified 01/08/21 22:08 Review of Systems ROS Statement: Those systems with pertinent positive or pertinent negative responses have been documented in the HPI. ROS Other: All systems not noted in ROS Statement are negative. Past Medical History Past Medical History: Diabetes Mellitus, Thyroid Disorder History of Any Multi-Drug Resistant Organisms: MRSA Date of last positivie culture/infection: 03/26/18 MDRO Source:: WOUND Past Surgical History: Section, Tonsillectomy Past Psychological History: Anxiety, Depression Smoking Status: Never smoker Past Alcohol Use History: Rare Past Drug Use History: None Reported General Exam Limitations: no limitations General appearance: alert, in no apparent distress, other (This is a well- developed, well-nourished adult female patient in mild distress related to pain. Vital signs upon presentation are temperature 98.3F, pulse 102, respirations 18, blood pressure 155/90, pulse ox 97% on room air.) Eye exam: Present: normal appearance, PERRL, EOMI. Absent: scleral icterus, conjunctival injection, periorbital swelling ENT exam: Present: normal exam, normal oropharynx, mucous membranes moist Respiratory exam: Present: normal lung sounds bilaterally. Absent: respiratory distress, wheezes, rales, rhonchi, stridor Cardiovascular Exam: Present: normal rhythm, tachycardia, normal heart sounds. Absent: systolic murmur, diastolic murmur, rubs, gallop, clicks GI/Abdominal exam: Present: soft, tenderness (Generalized), normal bowel sounds. Absent: distended, guarding, rebound, rigid Neurological exam: Present: alert, oriented X3, CN II-XII intact Psychiatric exam: Present: normal affect, normal mood Skin exam: Present: warm, dry, intact, normal color. Absent: rash Course Vital Signs 01/08/21 01/09/21 22:08 03:36 Temperature 98.3 F Pulse Rate 102 H 96 Respiratory 18 18 Rate Blood Pressure 155/90 150/83 O2 Sat by Pulse 97 98 Oximetry Medical Decision Making - Medical Decision Making 30 year-old female who underwent hysterosalpingogram earlier today around 1330, presents to the emergency department for evaluation of pelvic cramping and generalized abdominal pain. Physical exam revealed generalized abdominal tendern ess worse over the pelvic region. She was tachycardic upon arrival but afebrile. Labs showed elevated WBC 16.8, Lactic 2.5. Urine shows no infection. US obtained showed bilateral small ovarian cysts. CT abdomen and pelvis obtained and negative for acute findings. She was given pain medication and antiemetics. Upon re-evaluation she reports persistent pain 8/10 on the pain scale. I discussed the case with oncmaria g OBGYZainab López who recommended admission with IV antibiotics for possible infection. He also requested that I contact radiologist who performed procedure. Dr. Eaton was contacted, states that the procedure when smoothly, there were no complications. I did discuss findings and results with patient. She is agreeable to admission. She will be given doxy and flagyl. Pain medication provided. Case discussed with my attending Dr. York. - Lab Data Result diagrams: 01/08/21 23:56 01/08/21 23:58 Lab Results 01/08/21 01/08/21 01/08/21 Range/Units 23:56 23:56 23:56 WBC 16.8 H (3.8-10.6) k/uL RBC 3.81 (3.80-5.40) m/uL Hgb 11.9 (11.4-16.0) gm/dL Hct 34.5 (34.0-46.0) % MCV 90.5 (80.0-100.0) fL MCH 31.3 (25.0-35.0) pg MCHC 34.6 (31.0-37.0) g/dL RDW 13.9 (11.5-15.5) % Plt Count 329 (150-450) k/uL MPV 8.0 Neutrophils % 85 % Lymphocytes % 9 % Monocytes % 3 % Eosinophils % 2 % Basophils % 0 % Neutrophils # 14.3 H (1.3-7.7) k/uL Lymphocytes # 1.5 (1.0-4.8) k/uL Monocytes # 0.5 (0-1.0) k/uL Eosinophils # 0.4 (0-0.7) k/uL Basophils # 0.0 (0-0.2) k/uL Sodium (137-145) mmol/L Potassium (3.5-5.1) mmol/L Chloride (98-107) mmol/L Carbon Dioxide (22-30) mmol/L Anion Gap mmol/L BUN (7-17) mg/dL Creatinine (0.52-1.04) mg/dL Est GFR (CKD-EPI)AfAm (>60 ml/min/1.73 sqM) Est GFR (CKD-EPI)NonAf (>60 ml/min/1.73 sqM) Glucose (74-99) mg/dL Plasma Lactic Acid Arsh 2.5 H* (0.7-2.0) mmol/L Calcium (8.4-10.2) mg/dL Total Bilirubin (0.2-1.3) mg/dL AST (14-36) U/L ALT (4-34) U/L Alkaline Phosphatase (38-126) U/L Total Protein (6.3-8.2) g/dL Albumin (3.5-5.0) g/dL Lipase (23-300) U/L Urine Color Yellow Urine Appearance Clear (Clear) Urine pH 5.5 (5.0-8.0) Ur Specific [place] 1.031 (1.001-1.035) Urine Protein Trace H (Negative) Urine Glucose (UA) Negative (Negative) Urine Ketones Negative (Negative) Urine Blood Trace H (Negative) Urine Nitrite Negative (Negative) Urine Bilirubin Negative (Negative) Urine Urobilinogen <2.0 (<2.0) mg/dL Ur Leukocyte Esterase Negative (Negative) Urine RBC 1 (0-5) /hpf Urine WBC 2 (0-5) /hpf Ur Squamous Epith Cells 3 (0-4) /hpf Urine Bacteria Rare H (None) /hpf Urine Mucus Occasional H (None) /hpf 01/08/21 Range/Units 23:58 WBC (3.8-10.6) k/uL RBC (3.80-5.40) m/uL Hgb (11.4-16.0) gm/dL Hct (34.0-46.0) % MCV (80.0-100.0) fL MCH (25.0-35.0) pg MCHC (31.0-37.0) g/dL RDW (11.5-15.5) % Plt Count (150-450) k/uL MPV Neutrophils % % Lymphocytes % % Monocytes % % Eosinophils % % Basophils % % Neutrophils # (1.3-7.7) k/uL Lymphocytes # (1.0-4.8) k/uL Monocytes # (0-1.0) k/uL Eosinophils # (0-0.7) k/uL Basophils # (0-0.2) k/uL Sodium 138 (137-145) mmol/L Potassium 4.1 (3.5-5.1) mmol/L Chloride 104 (98-107) mmol/L Carbon Dioxide 27 (22-30) mmol/L Anion Gap 7 mmol/L BUN 18 H (7-17) mg/dL Creatinine 0.68 (0.52-1.04) mg/dL Est GFR (CKD-EPI)AfAm >90 (>60 ml/min/1.73 sqM) Est GFR (CKD-EPI)NonAf >90 (>60 ml/min/1.73 sqM) Glucose 132 H (74-99) mg/dL Plasma Lactic Acid Arsh (0.7-2.0) mmol/L Calcium 9.0 (8.4-10.2) mg/dL Total Bilirubin 0.4 (0.2-1.3) mg/dL AST 22 (14-36) U/L ALT 16 (4-34) U/L Alkaline Phosphatase 98 (38-126) U/L Total Protein 6.1 L (6.3-8.2) g/dL Albumin 3.3 L (3.5-5.0) g/dL Lipase 49 (23-300) U/L Urine Color Urine Appearance (Clear) Urine pH (5.0-8.0) Ur Specific [place] (1.001-1.035) Urine Protein (Negative) Urine Glucose (UA) (Negative) Urine Ketones (Negative) Urine Blood (Negative) Urine Nitrite (Negative) Urine Bilirubin (Negative) Urine Urobilinogen (<2.0) mg/dL Ur Leukocyte Esterase (Negative) Urine RBC (0-5) /hpf Urine WBC (0-5) /hpf Ur Squamous Epith Cells (0-4) /hpf Urine Bacteria (None) /hpf Urine Mucus (None) /hpf - Radiology Data Radiology results: report reviewed, image reviewed Transvaginal ultrasound was obtained. Report is reviewed in its entirety. Impression by Dr. Dyer shows small bilateral ovarian cyst. Otherwise unremarkable exam. CT abdomen and pelvis is obtained. Report was reviewed in its entirety. Impression by Dr. Dyer shows no acute findings in the abdomen or pelvis. Disposition Clinical Impression: Intractable abdominal pain, Leukocytosis, Lactic acidosis Disposition: ADMITTED IP TO THIS [facility] Condition: Serious Referrals: Davin Babcock MD [Primary Care Provider] - 1-2 days Decision to Admit Reason: Admit from EC Decision Date: 01/09/21 Decision Time: 03:51
--- NOTE | 2021-01-09 03:00 | CT ---
EXAM: CT Abdomen and Pelvis With Intravenous Contrast CLINICAL HISTORY: ITS.REASON CT Reason: Abdominal pain; s/p hysterosalpingogram today TECHNIQUE: Axial computed tomography images of the abdomen and pelvis with intravenous contrast. CTDI is 34.14 mGy and DLP is 2134.4 mGy-cm. This CT exam was performed using one or more of the following dose reduction techniques: automated exposure control, adjustment of the mA and/or kV according to patient size, and/or use of iterative reconstruction technique. COMPARISON: No relevant prior studies available. FINDINGS: Lung bases: Unremarkable. No mass. No consolidation. ABDOMEN: Liver: Unremarkable. No mass. Gallbladder and bile ducts: Unremarkable. No calcified stones. No ductal dilation. Pancreas: Unremarkable. No mass. No ductal dilation. Spleen: Unremarkable. No splenomegaly. Adrenals: Unremarkable. No mass. Kidneys and ureters: Unremarkable. No solid mass. No hydronephrosis. Stomach and bowel: Unremarkable. No obstruction. No mucosal thickening. PELVIS: Appendix: No findings to suggest acute appendicitis. Bladder: Unremarkable. No mass. Reproductive: Small amount of high density contrast within the vagina from recent hysterosalpingography. ABDOMEN and PELVIS: Intraperitoneal space: Unremarkable. No free air. No significant fluid collection. Bones/joints: No acute fracture. No dislocation. Soft tissues: Unremarkable. Vasculature: Unremarkable. No abdominal aortic aneurysm. Lymph nodes: Unremarkable. No enlarged lymph nodes. IMPRESSION: No acute findings in the abdomen or pelvis.
[2021-01-09] MEDS ORDERED: KETOROLAC 15 MG/ML 1 ML VIAL IVP STA (03:28)
[2021-01-09] MEDS ORDERED: metroNIDAZOLE-NS PMX 500 MG in SALINE 1 100ML.BAG IVPB STA (03:36)
[2021-01-09] MEDS ORDERED: NALOXONE 0.4 MG/ML 1 ML VIAL IV PRN (03:51)
[2021-01-09] MEDS ORDERED: HYDROmorphone 0.5 MG/0.5 ML SYRINGE IVP PRN (03:51)
[2021-01-09] MEDS ORDERED: ONDANSETRON 4 MG/2 ML VIAL IVP PRN (03:51)
[2021-01-09] MEDS ORDERED: DOXYCYCLINE 100 MG in SODIUM CHLORIDE 0.9% 100 ML IVPB ONE (04:00)
[2021-01-09] MEDS: SODIUM CHLORIDE 0.9% 1,000 ML IV SCH ×2 (04:32→14:36)
[2021-01-09] MEDS ORDERED: ACETAMINOPHEN TAB 325 MG TAB PO PRN (06:00)
[2021-01-09] MEDS ORDERED: FLUTICASONE 50MCG/SPRAY NASAL 16GM EA NOSTRIL PRN (06:33)
--- NOTE | 2021-01-09 06:40 | P.OBCN ---
History of Present Illness Consult date: 01/09/21 Reason for consult: pelvic pain Chief complaint: Pelvic pain status post HSG History of present illness: This patient is a 30-year-old female who had an HSG performed yesterday at approximately 1:00 in the afternoon. This test was ordered by Dr. Hunt and performed by interventional radiologist Dr. Eaton. Patient states that she went back to work in the afternoon and was feeling fairly okay but then later in the afternoon and early evening began having severe cramping and lower abdominal pain. Patient presented to the emergency department and imaging there included a pelvic ultrasound and abdominal pelvic CT which were essentially negative. Patient however was given multiple pain medications by the emergency department without resolution of her pain and was also noted to have an elevated white count at 16.8. Patient denies fever and is afebrile as well here. I recommended admission with IV antibiotics and pain control. Review of Systems Genitourinary: Reports as per HPI Past Medical History Past Medical History: Diabetes Mellitus, Hypertension, Thyroid Disorder History of Any Multi-Drug Resistant Organisms: MRSA Year Discovered:: 03/26/18 MDRO Source:: WOUND Past Surgical History: Section, Tonsillectomy Additional Past Surgical History / Comment(s): tubal injection for infertility (current admission) laser eye b/l Past Anesthesia/Blood Transfusion Reactions: No Reported Reaction Past Psychological History: Anxiety, Depression Smoking Status: Never smoker Past Alcohol Use History: Rare Past Drug Use History: None Reported - Past Family History Mother History Unknown: Yes Medications and Allergies Home Medications Medication Instructions Recorded Confirmed Type Insulin Glargine,Hum.rec.anlog 20 unit SQ DAILY 04/20/20 01/09/21 History [Basaglar [place] U-100] Meloxicam 15 mg PO DAILY 04/20/20 01/09/21 History metFORMIN HCL [metFORMIN HCL ER] 1,000 mg PO BID 04/20/20 01/09/21 History Dulaglutide [Trulicity] 0.75 mg SQ MIRELES 08/28/20 01/09/21 History Fluticasone Nasal [place] [Flonase 1 spr EA NOSTRIL DAILY PRN 08/28/20 01/09/21 History Nasal [place]] Levothyroxine Sodium [Synthroid] 75 mcg PO DAILY 08/28/20 01/09/21 History Metoprolol Succinate [Toprol XL] 25 mg PO DAILY 08/28/20 01/09/21 History Ondansetron Odt [Zofran Odt] 4 mg PO Q8HR PRN #10 tab 08/28/20 01/09/21 Rx lisinopriL [Zestril] 5 mg PO DAILY 08/28/20 01/09/21 History FLUoxetine HCL 40 mg PO HS 01/09/21 01/09/21 History Loratadine [Claritin] 10 mg PO DAILY 01/09/21 01/09/21 History Allergies Allergy/AdvReac Type Severity Reaction Status Date / Time No Known Allergies Allergy Verified 01/08/21 22:08 Exam Vital Signs Temp Pulse Pulse Resp BP BP Pulse Ox 01/09/21 05:45 97.9 F 89 18 148/90 97 01/09/21 03:36 96 18 150/83 98 01/08/21 22:08 98.3 F 102 H 18 155/90 97 Intake and Output 01/08/21 01/08/21 01/09/21 14:59 22:59 06:59 Other: Weight 98.43 kg 98.23 kg Results Result Diagrams: 01/08/21 23:56 01/08/21 23:58 Abnormal Lab Results - Last 24 Hours (Table) 01/08/21 01/08/21 01/08/21 Range/Units 23:56 23:56 23:56 WBC 16.8 H (3.8-10.6) k/uL Neutrophils # 14.3 H (1.3-7.7) k/uL BUN (7-17) mg/dL Glucose (74-99) mg/dL Plasma Lactic Acid Arsh 2.5 H* (0.7-2.0) mmol/L Total Protein (6.3-8.2) g/dL Albumin (3.5-5.0) g/dL Urine Protein Trace H (Negative) Urine Blood Trace H (Negative) Urine Bacteria Rare H (None) /hpf Urine Mucus Occasional H (None) /hpf 01/08/21 Range/Units 23:58 WBC (3.8-10.6) k/uL Neutrophils # (1.3-7.7) k/uL BUN 18 H (7-17) mg/dL Glucose 132 H (74-99) mg/dL Plasma Lactic Acid Arsh (0.7-2.0) mmol/L Total Protein 6.1 L (6.3-8.2) g/dL Albumin 3.3 L (3.5-5.0) g/dL Urine Protein (Negative) Urine Blood (Negative) Urine Bacteria (None) /hpf Urine Mucus (None) /hpf Assessment and Plan Assessment: This is a 30-year-old female with acute abdominal pain/pelvic pain status post hysterosalpingogram. Imaging studies have been negative in the emergency department did talk to Dr. Eaton who apparently perform the procedure. Due to the elevated white count regular continue IV antibiotics and pain control. Dr. Hunt will see the patient for further management. (1) Pelvic pain Current Visit: Yes Status: Acute Code(s): R10.2 - PELVIC AND PERINEAL PAIN SNOMED Code(s): 66736309
[2021-01-09] MEDS ORDERED: LEVOTHYROXINE 75 MCG TAB PO SCH (06:59)
[2021-01-09 07:28] LABS: Glucose,Whole Blood 116 mg/dL (75-99)
[2021-01-09] MEDS: INSULIN ASPART (NovoLOG) 100 UNIT/ML VIAL SQ SCH ×3 (07:46→17:36)
[2021-01-09] MEDS ORDERED: INSULIN DETEMIR (LEVEMIR) 100 UNIT/ML SYR SQ SCH (08:00)
[2021-01-09] MEDS: KETOROLAC 15 MG/ML 1 ML VIAL IVP PRN ×2 (08:37→14:37)
--- NOTE | 2021-01-09 08:53 | P.PN ---
Progress Note - Text Progress Note Date: 01/09/21 Emeli is seen and evaluated. She relates that her pain is slightly improved over yesterday. There is still at this time no clear understanding of why she is in so much pain. She relates the pain is predominantly around her ovaries and in her fallopian tube region. Although she does relate that it does come up into the abdomen some. This would imply potentially some pain potentially from her contrast media irritation with chemical peritonitis. She is receiving nonsteroidal anti-inflammatories with her other pain medication consideration for possibly Benadryl or other antihistamine could be made better think this is a true ALLERGY. We will work to discuss with the radiologist, but he is out of the hospital at this time. All other questions are answered for her at this time. Overall she is stable. She is in relatively good spirits and we'll attempt diet. Follow up with her at noon.
[2021-01-09] MEDS ORDERED: LORATADINE 10 MG TAB PO SCH (09:00)
[2021-01-09] MEDS ORDERED: lisinopriL 5 MG TAB PO SCH (09:00)
[2021-01-09] MEDS ORDERED: METOPROLOL SUCCINATE (ER) 25 MG TAB.ER.24H PO SCH (09:00)
[2021-01-09 11:47] LABS: Basophils % (A) 1 %; Eosinophils # (A) 0.3 k/uL (0-0.7); Eosinophils % (A) 3 %; HCT 32.3 % (34.0-46.0); HGB 10.8 gm/dL (11.4-16.0); Lymphocytes # (A) 1.6 k/uL (1.0-4.8); Lymphocytes % (A) 16 %; MCHC 33.4 g/dL (31.0-37.0); MCV 92.7 fL (80.0-100.0); Mean Platelet Volume 7.9; Monocytes # (A) 0.2 k/uL (0-1.0); Monocytes % (A) 2 %; Neutrophils # (A) 7.4 k/uL (1.3-7.7); Neutrophils % (A) 77 %; Platelet Count 301 k/uL (150-450); RBC 3.49 m/uL (3.80-5.40); WBC 9.7 k/uL (3.8-10.6)
[2021-01-09] MEDS ORDERED: metroNIDAZOLE-NS PMX 500 MG in SALINE 1 100ML.BAG IVPB SCH (12:00)
[2021-01-09 12:35] LABS: Glucose,Whole Blood 117 mg/dL (75-99)
[2021-01-09] MEDS ORDERED: HYDROcodone/APAP 5-325MG 1 EACH TAB PO PRN ×2 (13:30)
--- NOTE | 2021-01-09 13:32 | P.PN ---
Progress Note - Text Progress Note Date: 01/09/21 Emeli was again seen and evaluated immune. Her pain is better but still present. Clear she is pushing on her coming her standing up. She did tolerate a diet thus far. We will plan to re-see her later this afternoon with hopeful we can get her discharge to home. Dilaudid IV has been discontinued and switched over to [place]. All questions are answered for her at this time and we will reevaluate at the end of the day.
[2021-01-09 14:20] VITALS: BP 143/92; PULSE 92; RESP 18; TEMP 98.1
--- NOTE | 2021-01-09 16:55 | P.DS ---
Providers Date of admission: 01/09/21 03:33 Expected date of discharge: 01/09/21 Attending physician: Godwin Hunt Primary care physician: Davin Babcock [facility] Course: Jahaira is seen and evaluated again this afternoon. Her pain is much improved she relates that it is more like it 4-year-old 4 out of 10 she has tried [place] and it seems to be holding her pain better. We'll plan discharged home today with instructions to be off work tomorrow and take it easy to return to the emergency room or call for any significant pain, high temperatures were heavy bleeding. Her white blood cell count and venous lactate were both normal today. We'll discharge her with antibiotics for the next few days and pain medication. All the questions were answered for her at this time. It seems most likely that the diagnosis is some type of chemical peritonitis from the procedure she had as symptoms seem to be resolving slowly throughout the day. She'll follow me in the next 1-2 days otherwise. All the questions are answered for her and she is stable for discharge this time. Patient Condition at Discharge: Stable Plan - Discharge Summary Discharge Rx Participant: Yes New Discharge Prescriptions: New metroNIDAZOLE [Flagyl] 500 mg PO BID 2 Days #4 tab HYDROcodone/APAP 5-325MG [[place] 5-325] 1 tab PO Q4HR PRN #20 tab PRN Reason: Pain Doxycycline [Vibramycin] 100 mg PO BID 2 Days #4 capsule Ibuprofen [Motrin] 600 mg PO Q6HR PRN #30 tab PRN Reason: Pain No Action metFORMIN HCL [metFORMIN HCL ER] 1,000 mg PO BID Meloxicam 15 mg PO DAILY Insulin Glargine,Hum.rec.anlog [Basaglar Kwikpen U-100] 20 unit SQ DAILY Metoprolol Succinate [Toprol XL] 25 mg PO DAILY lisinopriL [Zestril] 5 mg PO DAILY Fluticasone Nasal [place] [Flonase Nasal [place]] 1 spr EA NOSTRIL DAILY PRN PRN Reason: Allergy Symptoms Dulaglutide [Trulicity] 0.75 mg SQ MIRELES Ondansetron Odt [Zofran Odt] 4 mg PO Q8HR PRN #10 tab PRN Reason: Nausea FLUoxetine HCL 40 mg PO HS Loratadine [Claritin] 10 mg PO DAILY Levothyroxine Sodium [Synthroid] 75 mcg PO DAILY Discharge Medication List Insulin Glargine,Hum.rec.anlog [Basaglar Kwikpen U-100] 20 unit SQ DAILY 04/20/20 [History] Meloxicam 15 mg PO DAILY 04/20/20 [History] metFORMIN HCL [metFORMIN HCL ER] 1,000 mg PO BID 04/20/20 [History] Dulaglutide [Trulicity] 0.75 mg SQ MIRELES 08/28/20 [History] Fluticasone Nasal [place] [Flonase Nasal [place]] 1 spr EA NOSTRIL DAILY PRN 08/28/20 [History] Metoprolol Succinate [Toprol XL] 25 mg PO DAILY 08/28/20 [History] Ondansetron Odt [Zofran Odt] 4 mg PO Q8HR PRN #10 tab 08/28/20 [Rx] lisinopriL [Zestril] 5 mg PO DAILY 08/28/20 [History] Doxycycline [Vibramycin] 100 mg PO BID 2 Days #4 capsule 01/09/21 [Rx] FLUoxetine HCL 40 mg PO HS 01/09/21 [History] HYDROcodone/APAP 5-325MG [[place] 5-325] 1 tab PO Q4HR PRN #20 tab 01/09/21 [Rx] Ibuprofen [Motrin] 600 mg PO Q6HR PRN #30 tab 01/09/21 [Rx] Levothyroxine Sodium [Synthroid] 75 mcg PO DAILY 01/09/21 [History] Loratadine [Claritin] 10 mg PO DAILY 01/09/21 [History] metroNIDAZOLE [Flagyl] 500 mg PO BID 2 Days #4 tab 01/09/21 [Rx] Follow up Appointment(s)/Referral(s): Davin Babcock MD [Primary Care Provider] - 1-2 days Activity/Diet/Wound Care/Special Instructions: Ovary lifting, limit stairs and driving, and pelvic rest. If any high temperatures, heavy bleeding or severe pain call my office. Do not take meloxicam if you are taking the Motrin Discharge Disposition: HOME SELF-CARE
[2021-01-09] MEDS ORDERED: DOXYCYCLINE 100 MG in SODIUM CHLORIDE 0.9% 100 ML IVPB SCH (17:00)
[2021-01-09 17:26] LABS: Glucose,Whole Blood 146 mg/dL (75-99)
[2021-01-09] MEDS ORDERED: FLUoxetine HCL 20 MG CAP PO SCH (21:00)
== END 2021-01-09 19:18 | disposition home or self-care (01) ==
LOC: EC 21:55 → 6PED 01-09 03:33
PROVIDERS: ADMIT Obstetrics & Gynecology; ATTEND Obstetrics & Gynecology
DX: G89.18 Other acute postprocedural pain (principal); R10.2 Pelvic and perineal pain; E87.2 Acidosis; D72.829 Elevated white blood cell count, unspecified; E11.9 Type 2 diabetes mellitus without complications; I10 Essential (primary) hypertension; R00.0 Tachycardia, unspecified; E07.9 Disorder of thyroid, unspecified; F32.9 Major depressive disorder, single episode, unspecified; F41.9 Anxiety disorder, unspecified; N83.202 Unspecified ovarian cyst, left side; N83.201 Unspecified ovarian cyst, right side; Z20.822 Contact with and (suspected) exposure to COVID-19; Z79.1 Long term (current) use of non-steroidal anti-inflammatories (NSAID); Z79.890 Hormone replacement therapy; Z79.4 Long term (current) use of insulin; Z79.899 Other long term (current) drug therapy; Z86.14 Personal history of Methicillin resistant Staphylococcus aureus infection; Z98.891 History of uterine scar from previous surgery; Z98.890 Other specified postprocedural states
CPT/HCPCS: 96361; 96366; 96367; 96376; 96365; 96375; 99285; 36415; 80053; 83605; 83690; 85025; 81001; 81025; 87040; 87635; 93975; 76830; 74177; G0378; J2405; J1170; J1885; Q9967

== ENCOUNTER → 2021-01-08 | Outpatient (CLI) | payer BC, OTHER ==
--- NOTE | 2021-01-08 16:04 | FL ---
Hysterosalpingogram HISTORY: Infertility, N 97.9 Following informed consent patient lay supine on the radiographic table. Speculum was introduced. Fol lowing localization of the cervix and after local disinfection with swab with iodine solution, cathet er was introduced into the cervix. Balloon was gently inflated. Under fluoroscopic observation gentle hand-injection of contrast material was performed, spot images obtained. Following the procedure, th e balloon was deflated and withdrawn with catheter. Speculum was removed. There is no immediate consu ltation. Patient remained in stable condition. 1 minute 2 seconds fluoroscopy time, 5 images obtained. Initial veterinary technician assistant image of the pelvis shows a probable phlebolith in the left hemipelvis. The uterus show s a anterior to posterior orientation. Fallopian tubes are patent bilaterally. IMPRESSION: Patent fallopian tubes
== END | disposition home or self-care (01) ==
LOC: RADUSWWP 13:37
PROVIDERS: ATTEND Obstetrics & Gynecology
DX: N97.9 Female infertility, unspecified (principal)
CPT/HCPCS: 58340; 74740; Q9967

== ENCOUNTER 2021-05-25 07:55 | Emergency (ER) | payer BC, OTHER ==
[2021-05-25 08:00] VITALS: RESP 18; TEMP 98.5
--- NOTE | 2021-05-25 09:05 | US ---
EXAMINATION TYPE: US venous doppler duplex UE LT DATE OF EXAM: 05/25/2021 COMPARISON: NONE CLINICAL HISTORY: swelling. Swelling in hand SIDE PERFORMED: Left Left Arm: Negative for DVT IMPRESSION: No evidence of DVT.
--- NOTE | 2021-05-25 09:25 | ED ---
Upper Extremity HPI - General Chief Complaint: Extremity Injury, Upper Stated Complaint: hand problem Time Seen by Provider: 05/25/21 08:00 Source: patient, RN notes reviewed Mode of arrival: ambulatory Limitations: no limitations - History of Present Illness Initial Comments: Patient is a 30-year-old female that presents to emergency department complai meghan of a left hand and wrist issue. She notes that she woke up this morning with some red speckles and a quarter the touch left hand. She notes she is diabetic and was concerned so she can emergency room for evaluation. She notes her last hemoglobin A1c was approximately 8.5. She notes that she was worried because she has not want was hand. She denied any pain in her left hand. She have full range of motion and strength. She denied any other complaints. She was otherwise well-appearing 30-year-old female no apparent distress. She denied chest pain shortness breath headache nausea vomiting diarrhea constipation fever fatigue chills. - Related Data Home Medications Medication Instructions Recorded Confirmed Insulin Glargine,Hum.rec.anlog 20 unit SQ DAILY 04/20/20 01/09/21 [Basaglar Kwikpen U-100] Meloxicam 15 mg PO DAILY 04/20/20 01/09/21 metFORMIN HCL [metFORMIN HCL ER] 1,000 mg PO BID 04/20/20 01/09/21 Dulaglutide [Trulicity] 0.75 mg SQ MIRELES 08/28/20 01/09/21 Fluticasone Nasal [place] [Flonase 1 spr EA NOSTRIL DAILY PRN 08/28/20 01/09/21 Nasal [place]] Metoprolol Succinate [Toprol XL] 25 mg PO DAILY 08/28/20 01/09/21 lisinopriL [Zestril] 5 mg PO DAILY 08/28/20 01/09/21 FLUoxetine HCL 40 mg PO HS 01/09/21 01/09/21 Levothyroxine Sodium [Synthroid] 75 mcg PO DAILY 01/09/21 01/09/21 Loratadine [Claritin] 10 mg PO DAILY 01/09/21 01/09/21 Previous Rx's Medication Instructions Recorded Ondansetron Odt [Zofran Odt] 4 mg PO Q8HR PRN #10 tab 08/28/20 Doxycycline [Vibramycin] 100 mg PO BID 2 Days #4 capsule 01/09/21 HYDROcodone/APAP 5-325MG [[place] 1 tab PO Q4HR PRN #20 tab 01/09/21 5-325] Ibuprofen [Motrin] 600 mg PO Q6HR PRN #30 tab 01/09/21 metroNIDAZOLE [Flagyl] 500 mg PO BID 2 Days #4 tab 01/09/21 Allergies Allergy/AdvReac Type Severity Reaction Status Date / Time No Known Allergies Allergy Verified 01/09/21 06:42 Review of Systems ROS Statement: Those systems with pertinent positive or pertinent negative responses have been documented in the HPI. ROS Other: All systems not noted in ROS Statement are negative. Past Medical History Past Medical History: Diabetes Mellitus, Hypertension, Thyroid Disorder History of Any Multi-Drug Resistant Organisms: MRSA Date of last positivie culture/infection: 03/26/18 MDRO Source:: WOUND Past Surgical History: Section, Tonsillectomy Additional Past Surgical History / Comment(s): tubal injection for infertility (current admission) laser eye b/l Past Anesthesia/Blood Transfusion Reactions: No Reported Reaction Past Psychological History: Anxiety, Depression Smoking Status: Never smoker Past Alcohol Use History: Rare Past Drug Use History: None Reported - Past Family History Mother History Unknown: Yes General Exam Limitations: no limitations General appearance: alert, in no apparent distress, obese Head exam: Present: atraumatic, normocephalic, normal inspection Eye exam: Present: normal appearance, PERRL, EOMI. Absent: scleral icterus, conjunctival injection, periorbital swelling ENT exam: Present: normal exam, mucous membranes moist Neck exam: Present: normal inspection Respiratory exam: Present: normal lung sounds bilaterally. Absent: respiratory distress, wheezes, rales, rhonchi, stridor Cardiovascular Exam: Present: regular rate, normal rhythm, normal heart sounds. Absent: systolic murmur, diastolic murmur, rubs, gallop, clicks Extremities exam: Present: normal inspection, full ROM, normal capillary refill. Absent: tenderness, pedal edema, joint swelling, calf tenderness Left Hand Wrist exam: Present: normal inspection, full ROM, other (Minor petechia to the dorsal aspect of the hand and wrist.). Absent: tenderness, swelling, abrasion Vascular: Present: radial pulse (2+), ulnar pulse (2+). Absent: vascular compromise Neurological exam: Present: alert, oriented X3 Psychiatric exam: Present: normal affect, normal mood Skin exam: Present: warm, dry, intact, normal color. Absent: rash Course Vital Signs 05/25/21 07:56 Temperature 98.5 F Pulse Rate 109 H Respiratory 18 Rate Blood Pressure 174/118 O2 Sat by Pulse 100 Oximetry Medical Decision Making - Medical Decision Making 30-year-old female with left hand coolness and some numbing. Ultrasound of the left upper extremity ordered. Ultrasound negative for any DVT. Upon reevaluation patient's hand is warmer to the touch than initial exam. Patient is comfortable discharge home with follow-up primary care. Vital signs stable. Case discussed with Dr. Mejia, patient discharge home. - Radiology Data Radiology results: report reviewed, image reviewed Left upper extremity ultrasound: Negative for DVT. Disposition Clinical Impression: Type 2 diabetes with decreased circulation Disposition: HOME SELF-CARE Condition: Stable Instructions (If sedation given, give patient instructions): Diabetic Peripheral Neuropathy (ED) Additional Instructions: Please return to the Emergency Department if symptoms worsen or any other concerns. Follow-up with primary care 1-2 days. Is patient prescribed a controlled substance at d/c from ED?: No Referrals: Davin Babcock MD [Primary Care Provider] - 1-2 days Time of Disposition: 09:25
[2021-05-25 09:55] VITALS: BP 166/109; PULSE 98
== END 2021-05-25 09:55 | disposition home or self-care (01) ==
LOC: EC 07:55
DX: E11.9 Type 2 diabetes mellitus without complications (principal); M79.89 Other specified soft tissue disorders; I10 Essential (primary) hypertension; Z79.4 Long term (current) use of insulin; E07.9 Disorder of thyroid, unspecified; Z79.899 Other long term (current) drug therapy; Z79.890 Hormone replacement therapy
CPT/HCPCS: 99283

== ENCOUNTER → 2021-08-14 | Outpatient (CLI) | payer BC, OTHER | END | disposition home or self-care (01) | LOC: LABWHC1 13:55 | PROVIDERS: ATTEND Internal Medicine Cardiovascular Disease | DX: I10 Essential (primary) hypertension (principal) | CPT/HCPCS: 36415; 82088; 82533; 84244 ==

== ENCOUNTER 2021-08-16 06:22 | Emergency (ER) | payer BC, OTHER ==
[2021-08-16 06:37] VITALS: TEMP 98.5
[2021-08-16] MEDS ORDERED: MORPHINE SULFATE 4 MG/ML SYRINGE IVP STA (06:46)
[2021-08-16] MEDS ORDERED: ONDANSETRON 4 MG/2 ML VIAL IVP STA (06:46)
[2021-08-16] MEDS ORDERED: LABETALOL SYRINGE 5 MG/ML IVP STA (06:51)
[2021-08-16 07:14] LABS: Basophils # (A) 0.1 k/uL (0-0.2); Basophils % (A) 1 %; Eosinophils # (A) 0.4 k/uL (0-0.7); Eosinophils % (A) 4 %; HCT 33.8 % (34.0-46.0); HGB 11.2 gm/dL (11.4-16.0); Lymphocytes # (A) 1.6 k/uL (1.0-4.8); Lymphocytes % (A) 19 %; MCH 30.7 pg (25.0-35.0); MCHC 33.2 g/dL (31.0-37.0); MCV 92.4 fL (80.0-100.0); Mean Platelet Volume 8.8; Monocytes # (A) 0.3 k/uL (0-1.0); Monocytes % (A) 3 %; Neutrophils # (A) 6.3 k/uL (1.3-7.7); Neutrophils % (A) 73 %; Platelet Count 318 k/uL (150-450); RBC 3.66 m/uL (3.80-5.40); RDW 14.1 % (11.5-15.5); WBC 8.7 k/uL (3.8-10.6)
[2021-08-16 07:24] VITALS: RESP 18
[2021-08-16 07:36] LABS: ALT 19 U/L (4-34); AST 22 U/L (14-36); African American GFR (CKD) >90 (>60 ml/min/1.73 sqM); Albumin 3.4 g/dL (3.5-5.0); Alkaline Phosphatase 101 U/L (38-126); Anion Gap 8 mmol/L; Blood Urea Nitrogen 22 mg/dL (7-17); Calcium 9.3 mg/dL (8.4-10.2); Carbon Dioxide 26 mmol/L (22-30); Chloride 103 mmol/L (98-107); Glucose 240 mg/dL (74-99); INR 0.8 (<1.2); Magnesium 1.3 mg/dL (1.6-2.3); Non-African American GFR(CKD) >90 (>60 ml/min/1.73 sqM); Partial Thromboplastin Time 20.9 sec (22.0-30.0); Potassium 4.7 mmol/L (3.5-5.1); Prothrombin Time 9.3 sec (9.0-12.0); Sodium 137 mmol/L (137-145); Total Bilirubin 0.3 mg/dL (0.2-1.3); Total Protein 6.4 g/dL (6.3-8.2)
--- NOTE | 2021-08-16 07:42 | CT ---
EXAMINATION TYPE: CT brain wo con DATE OF EXAM: 08/16/2021 COMPARISON: None HISTORY: 30-year-old female elevated BP, SANZ, dizziness TECHNIQUE: Examination was done in axial plane without intravenous contrast. Coronal and sagittal r econstructions performed. CT DLP: 1043.4 mGycm Automated exposure control for dose reduction was used. FINDINGS: There is no evidence of acute intracranial hemorrhage, acute ischemic changes, mass, mass-effect, or extra-axial fluid collection. There is no effacement of cerebral sulci or basal subarachnoid cister ns. There is no hydrocephalus. There is no midline shift. Alvarez-white matter distinction is preserv ed. Paranasal sinuses and mastoid air cells well pneumatized. Orbits and globes are intact. IMPRESSION: No acute intracranial abnormality seen.
--- NOTE | 2021-08-16 07:43 | XR ---
EXAMINATION TYPE: XR chest 2V DATE OF EXAM: 08/16/2021 COMPARISON: 04/20/2020 HISTORY: 30-year-old female with chest pain TECHNIQUE: PA and lateral views FINDINGS: Heart upper limits of normal in size. Mild interstitial prominence. Aorta and vasculature within norm al limits. Strandy atelectasis at the right base. Otherwise, no consolidation or pleural effusion. IMPRESSION: Interstitial prominence may reflect bronchitis or asthma. Clinically correlate. Strandy right basilar atelectasis.
--- NOTE | 2021-08-16 08:06 | ED ---
Recheck HPI - General Chief Complaint: Recheck/Abnormal Lab/Rx Stated Complaint: High Blood Pressure Time Seen by Provider: 08/16/21 06:38 Source: patient, RN notes reviewed Mode of arrival: ambulatory Limitations: no limitations - History of Present Illness Initial Comments: Patient is a 30-year-old female that presents to the emergency department comp [facility] of headache and elevated blood pressure. She notes she was recently told to increase her hydrochlorothiazide medication for elevated blood pressure. She notes she does have significant history of high blood pressure diabetes and several other comorbidities. Patient notes that is been 24 hours since increase in her medication and still is having high blood pressure with headache. Patien t denied any alleviating or aggravating factors at this time. She was otherwise well-appearing. She denied chest pain shortness of breath nausea vomiting diarrhea constipation fever fatigue chills. She denied any change in vision blurry vision. - Related Data Home Medications Medication Instructions Recorded Confirmed Insulin Glargine,Hum.rec.anlog 20 unit SQ DAILY 04/20/20 01/09/21 [Mattaglosmel [place] U-100] Meloxicam 15 mg PO DAILY 04/20/20 01/09/21 metFORMIN HCL [metFORMIN HCL ER] 1,000 mg PO BID 04/20/20 01/09/21 Dulaglutide [Trulicity] 0.75 mg SQ MIRELES 08/28/20 01/09/21 Fluticasone Nasal [place] [Flonase 1 spr EA NOSTRIL DAILY PRN 08/28/20 01/09/21 Nasal [place]] Metoprolol Succinate [Toprol XL] 25 mg PO DAILY 08/28/20 01/09/21 lisinopriL [Zestril] 5 mg PO DAILY 08/28/20 01/09/21 FLUoxetine HCL 40 mg PO HS 01/09/21 01/09/21 Levothyroxine Sodium [Synthroid] 75 mcg PO DAILY 01/09/21 01/09/21 Loratadine [Claritin] 10 mg PO DAILY 01/09/21 01/09/21 Previous Rx's Medication Instructions Recorded Ondansetron Odt [Zofran Odt] 4 mg PO Q8HR PRN #10 tab 08/28/20 Doxycycline [Vibramycin] 100 mg PO BID 2 Days #4 capsule 01/09/21 HYDROcodone/APAP 5-325MG [[place] 1 tab PO Q4HR PRN #20 tab 01/09/21 5-325] Ibuprofen [Motrin] 600 mg PO Q6HR PRN #30 tab 01/09/21 metroNIDAZOLE [Flagyl] 500 mg PO BID 2 Days #4 tab 01/09/21 Allergies Allergy/AdvReac Type Severity Reaction Status Date / Time No Known Allergies Allergy Verified 08/16/21 06:36 Review of Systems ROS Statement: Those systems with pertinent positive or pertinent negative responses have been documented in the HPI. ROS Other: All systems not noted in ROS Statement are negative. Past Medical History Past Medical History: Diabetes Mellitus, Hypertension, Thyroid Disorder History of Any Multi-Drug Resistant Organisms: MRSA Date of last positivie culture/infection: 03/26/18 MDRO Source:: WOUND Past Surgical History: Section, Tonsillectomy Additional Past Surgical History / Comment(s): tubal injection for infertility (current admission) laser eye b/l Past Anesthesia/Blood Transfusion Reactions: No Reported Reaction Past Psychological History: Anxiety, Depression Smoking Status: Never smoker Past Alcohol Use History: Rare Past Drug Use History: None Reported - Past Family History Mother History Unknown: Yes General Exam Limitations: no limitations General appearance: alert, in no apparent distress, obese Head exam: Present: atraumatic, normocephalic, normal inspection Eye exam: Present: normal appearance, PERRL, EOMI. Absent: scleral icterus, conjunctival injection, periorbital swelling ENT exam: Present: normal exam, mucous membranes moist Neck exam: Present: normal inspection Respiratory exam: Present: normal lung sounds bilaterally. Absent: respiratory distress, wheezes, rales, rhonchi, stridor Cardiovascular Exam: Present: regular rate, normal rhythm, normal heart sounds. Absent: systolic murmur, diastolic murmur, rubs, gallop, clicks Extremities exam: Present: normal inspection, full ROM, normal capillary refill. Absent: tenderness, pedal edema, joint swelling, calf tenderness Neurological exam: Present: alert, oriented X3 Psychiatric exam: Present: normal affect, normal mood Skin exam: Present: warm, dry, intact, normal color. Absent: rash Course Vital Signs 08/16/21 08/16/21 08/16/21 06:34 07:14 08:07 Temperature 98.5 F Pulse Rate 100 90 98 Respiratory 20 18 18 Rate Blood Pressure 189/127 176/97 143/78 O2 Sat by Pulse 98 97 95 Oximetry Medical Decision Making - Medical Decision Making 30-year-old female complaining of high blood pressure and headache. Labs, EKG, radiation monitor, chest x-ray, CT of the brain, 4 mg of morphine 4 mg of Zofran ordered. Labs: CBC unremarkable, CMP unremarkable troponin negative, urinalysis negative. Imaging shows possible bronchitis. CT of the brain negative for any acute intracranial abnormality. 20 mg labetalol ordered for elevated blood pressure. Case discussed with Dr. Lay, patient discharge home with close follow-up primary care. - Lab Data Result diagrams: 08/16/21 06:59 08/16/21 06:59 Lab Results 08/16/21 08/16/21 08/16/21 Range/Units 06:59 06:59 06:59 WBC 8.7 (3.8-10.6) k/uL RBC 3.66 L (3.80-5.40) m/uL Hgb 11.2 L (11.4-16.0) gm/dL Hct 33.8 L (34.0-46.0) % MCV 92.4 (80.0-100.0) fL MCH 30.7 (25.0-35.0) pg MCHC 33.2 (31.0-37.0) g/dL RDW 14.1 (11.5-15.5) % Plt Count 318 (150-450) k/uL MPV 8.8 Neutrophils % 73 % Lymphocytes % 19 % Monocytes % 3 % Eosinophils % 4 % Basophils % 1 % Neutrophils # 6.3 (1.3-7.7) k/uL Lymphocytes # 1.6 (1.0-4.8) k/uL Monocytes # 0.3 (0-1.0) k/uL Eosinophils # 0.4 (0-0.7) k/uL Basophils # 0.1 (0-0.2) k/uL PT 9.3 (9.0-12.0) sec INR 0.8 (<1.2) APTT 20.9 L (22.0-30.0) sec Sodium 137 (137-145) mmol/L Potassium 4.7 (3.5-5.1) mmol/L Chloride 103 (98-107) mmol/L Carbon Dioxide 26 (22-30) mmol/L Anion Gap 8 mmol/L BUN 22 H (7-17) mg/dL Creatinine 0.83 (0.52-1.04) mg/dL Est GFR (CKD-EPI)AfAm >90 (>60 ml/min/1.73 sqM) Est GFR (CKD-EPI)NonAf >90 (>60 ml/min/1.73 sqM) Glucose 240 H (74-99) mg/dL Calcium 9.3 (8.4-10.2) mg/dL Magnesium 1.3 L (1.6-2.3) mg/dL Total Bilirubin 0.3 (0.2-1.3) mg/dL AST 22 (14-36) U/L ALT 19 (4-34) U/L Alkaline Phosphatase 101 (38-126) U/L Troponin I (0.000-0.034) ng/mL Total Protein 6.4 (6.3-8.2) g/dL Albumin 3.4 L (3.5-5.0) g/dL 08/16/21 Range/Units 06:59 WBC (3.8-10.6) k/uL RBC (3.80-5.40) m/uL Hgb (11.4-16.0) gm/dL Hct (34.0-46.0) % MCV (80.0-100.0) fL MCH (25.0-35.0) pg MCHC (31.0-37.0) g/dL RDW (11.5-15.5) % Plt Count (150-450) k/uL MPV Neutrophils % % Lymphocytes % % Monocytes % % Eosinophils % % Basophils % % Neutrophils # (1.3-7.7) k/uL Lymphocytes # (1.0-4.8) k/uL Monocytes # (0-1.0) k/uL Eosinophils # (0-0.7) k/uL Basophils # (0-0.2) k/uL PT (9.0-12.0) sec INR (<1.2) APTT (22.0-30.0) sec Sodium (137-145) mmol/L Potassium (3.5-5.1) mmol/L Chloride (98-107) mmol/L Carbon Dioxide (22-30) mmol/L Anion Gap mmol/L BUN (7-17) mg/dL Creatinine (0.52-1.04) mg/dL Est GFR (CKD-EPI)AfAm (>60 ml/min/1.73 sqM) Est GFR (CKD-EPI)NonAf (>60 ml/min/1.73 sqM) Glucose (74-99) mg/dL Calcium (8.4-10.2) mg/dL Magnesium (1.6-2.3) mg/dL Total Bilirubin (0.2-1.3) mg/dL AST (14-36) U/L ALT (4-34) U/L Alkaline Phosphatase (38-126) U/L Troponin I <0.012 (0.000-0.034) ng/mL Total Protein (6.3-8.2) g/dL Albumin (3.5-5.0) g/dL - EKG Data -: EKG Interpreted by Mt EKG shows normal: sinus rhythm Rate: normal EKG Comments: Ventricular rate 98 bpm, DE interval 122 ms, QRS duration 78 ms, QTC 449 ms, PRT axes 29/2/37, normal sinus rhythm, normal ECG. - Radiology Data Radiology results: report reviewed, image reviewed Chest x-ray: Interstitial prominence may reflect bronchitis or asthma. Clinically correlate. Strain in the right basilar atelectasis. CT of the brain: No acute intracranial abnormality seen. Disposition Clinical Impression: Hypertension, Hypomagnesemia Disposition: HOME SELF-CARE Condition: Stable Instructions (If sedation given, give patient instructions): Hypertension (ED) Additional Instructions: Please return to the Emergency Department if symptoms worsen or any other concerns. Take Tylenol Motrin for headache. Continue taking high blood pressure medication as prescribed. Follow-up primary care 1-2 days. Is patient prescribed a controlled substance at d/c from ED?: No Referrals: Davin Babcock MD [Primary Care Provider] - 1-2 days Time of Disposition: 08:13
[2021-08-16 08:35] VITALS: BP 152/78; PULSE 92
== END 2021-08-16 08:33 | disposition home or self-care (01) ==
LOC: EC 06:22
DX: I10 Essential (primary) hypertension (principal); E83.42 Hypomagnesemia; E11.9 Type 2 diabetes mellitus without complications; E07.9 Disorder of thyroid, unspecified; F41.9 Anxiety disorder, unspecified; F32.A Depression, unspecified; Z79.4 Long term (current) use of insulin; Z79.84 Long term (current) use of oral hypoglycemic drugs
CPT/HCPCS: 99284; 96374; 96375 ×2; 36415; 93005; 80053; 83735; 84484; 85025; 85610; 85730; 71046; 70450; J2270; J2405

== ENCOUNTER → 2021-08-29 | Outpatient (CLI) | payer BC, OTHER ==
--- NOTE | 2021-08-30 05:06 | MR ---
EXAMINATION TYPE: MR angio head wo con DATE OF EXAM: 08/29/2021 COMPARISON: None HISTORY: Recurring Migraines MR angiographic images were obtained of the intracerebral arterial circulation. There is arterial flow in the anterior middle and posterior cerebral arteries. There is arterial flow in the vertebral basilar artery system. It is arterial flow in both distal internal carotid arteries and both distal vertebral arteries. There is no mass effect. I see no evidence of intracranial aneurysm or neovascularity. No evidence of flow seen in the posterior communicating arteries. There is no evidence of intracranial arterial ed nosis. IMPRESSION: Negative MR angiogram of the brain.
--- NOTE | 2021-08-30 05:18 | MR ---
EXAMINATION TYPE: MR brain wo/w con DATE OF EXAM: 08/29/2021 COMPARISON: None HISTORY: Recurring Migraines CONTRAST: Standard multiplanar, multisequence MRI departmental protocol images were obtained without contrast a nd with 10ml mL intravenous Gadavist gadolinium contrast. Ventricles and sulci appear normal. There is no mass effect or midline shift. There is no evidence of intracranial hemorrhage. Diffusion images show no evidence of acute infarct. Corpus callosum appears normal. There is slight bulbous appearance of the pituitary gland that is probably related to some m ild hyperplasia. No pituitary mass seen. The pituitary stalk is in the midline. Optic chiasm appears normal. Alvarez and white matter structures have normal signal pattern. There is no evidence of cerebral edema. Brainstem is intact. There is no evidence of posterior fossa mass. There is no evidence of orbital ma ss. Contrast images show no pathologic enhancement. There is normal enhancement of the venous sinuses. IMPRESSION: Negative MR scan of the brain. Pituitary hyperplasia.
== END | disposition home or self-care (01) ==
LOC: RADMRIMAIN 19:34
PROVIDERS: ATTEND Family Medicine
DX: G43.909 Migraine, unspecified, not intractable, without status migrainosus (principal); E23.6 Other disorders of pituitary gland
CPT/HCPCS: 70544; 70553; A9585

== ENCOUNTER → 2021-08-31 | Outpatient (CLI) | payer BC, OTHER ==
--- NOTE | 2021-08-31 08:44 | US ---
EXAMINATION TYPE: US renal artery duplex complete DATE OF EXAM: 08/31/2021 COMPARISON: CT 01/09/2021 CLINICAL HISTORY: 31-year-old female I10 Hypertension. Initially uncontrolled HTN, on new medication now; diabetic controlled w/medication; hypothyroidism; HT5'3, WT 220lb TECHNIQUE: Multiple sonographic images of the kidneys are obtained. Color Doppler and spectral wavefo rm analysis of the renal arterial system. FINDINGS: MEASUREMENTS: RENAL SIZE: Rt Kidney: 11.3 x 5.8 x 4.5cm. A junctional defect with interposed fat is noted at the mid to lower p ole. No hydronephrosis. Lt Kidney: 11.1 x 4.8 x 5.3cm. No hydronephrosis. RESISTANCE INDEX Right: 0.73 Left: 0.69 RA/AO RATIO (< 3.5 ) Right: 2.0 Left: 2.0 RA VELOCITY ( < 180 cm/s) Right: 141.0 cm/s prox Left: 145.3cm/s mid;132.6cm/s prox Aorta size is wnl. Mid aortic peak systolic velocity: 72.2 cm/s. [employer] notes: Mildly elevated PSV is noted at proximal and mid bilateral renal artery. US exam is technically limited by overlying bowel gas. Measurements do not exceed normal limits. IMPRESSION: 1. The inventory associate indicates technical limitations due to overlying bowel gas. 2. No sonographic/Doppler evidence for renal artery stenosis on either side.
== END | disposition home or self-care (01) ==
LOC: RADUSWWP 06:56
PROVIDERS: ATTEND Internal Medicine Cardiovascular Disease
DX: I10 Essential (primary) hypertension (principal); E03.9 Hypothyroidism, unspecified
CPT/HCPCS: 93975

== ENCOUNTER → 2023-01-24 | Day surgery (SDC) | payer BC, OTHER ==
[~2023-01-24] MED LIST: LACTATED RINGERS 1,000 ML IV ONE; LACTATED RINGERS 1,000 ML IV SCH; LIDOCAINE 2% INJ 20 MG/ML (2 ML VIAL) ONE; MIDAZOLAM 2 MG/2 ML VIAL ONE; PROPOFOL 10 MG/ML 20 ML VIAL IV ONE; fentaNYL (PF) 50 MCG/ML 2 ML AMP ONE
[2023-01-24 07:58] VITALS: RESP 16; TEMP 97.4
--- NOTE | 2023-01-24 08:44 | P.PCN ---
Date of Procedure: 01/24/23 Procedure(s) Performed: Brief history: Patient is a pleasant 32-year-old white female scheduled for an elective upper endoscopy as well as colonoscopy as a part of evaluation of Iron deficiency anemia. She was noted to have a hemoglobin of 7 g/dL was transfused with 2 units of PRBC transition a month ago. She denies any abdominal pain. No nausea vomiting. No rectal bleeding or melena. Procedure performed: Esophagogastroduodenoscopy with biopsy Colonoscopy Preoperative diagnosis: Iron deficiency anemia Anesthesia: MAC Procedure: After informed consent was obtained from the patient was brought into the endoscopy unit and IV sedation was administered by anesthesia under continuous monitoring. Initially upper endoscopy was done. The Olympus GF 160 video endoscope was inserted inserted into the mouth and esophagus intubated without any difficulty and was gradually advanced into the stomach and duodenum and carefully examined. The bulb and second part of the duodenum appeared normal. Biopsies were done from the duodenum to rule out celiac disease The scope was then withdrawn into the stomach adequately insufflated with air and upon careful examination the antrum had mild antral gastritis and biopsies were done from this area. Mucosa of the body, cardia and fundus appeared normal. The scope was then withdrawn into the esophagus. The GE junction was located at 40 cm to the incisors. It appeared regular with no erythema erosions or ulcerations. Rest of the esophagus appeared normal. Patient tolerated the procedure well. At this time the patient continued to remain sedation. Initial digital rectal examination was normal. Olympus CF 160 video colonoscope was then inserted into the rectum and gradually advanced to the cecum without any difficulty. Careful examination was performed as the scope was gradually being withdrawn. The prep was excellent. The cecum, ascending colon, transverse colon, descending colon, sigmoid colon and rectum appeared normal. Retroflexion was performed in the rectum and no lesions were noted. Patient tolerated the procedure well. Impression: 1. Upper endoscopy revealed mild antral gastritis but no evidence of esophagitis or peptic ulcer disease 2. Colonoscopy was within normal limits with no evidence of colorectal neoplasia Recommendations: Findings of this examination were discussed with the patient as well as[ her family. She was advised to follow with the biopsy results. Recommend repeat screening colonoscopy at age 46.
[2023-01-24 08:59] LABS: Glucose,Whole Blood 93 mg/dL (70-110)
[2023-01-24 09:03] VITALS: BP 149/95; PULSE 96
== END ==
LOC: ORWHC2ENDO 07:28
PROVIDERS: ATTEND Internal Medicine Gastroenterology
DX: K29.50 Unspecified chronic gastritis without bleeding (principal); D64.9 Anemia, unspecified; E11.9 Type 2 diabetes mellitus without complications; I10 Essential (primary) hypertension; J45.909 Unspecified asthma, uncomplicated; F41.9 Anxiety disorder, unspecified; F32.A Depression, unspecified; Z79.890 Hormone replacement therapy; Z79.899 Other long term (current) drug therapy; Z90.89 Acquired absence of other organs; Z98.890 Other specified postprocedural states
CPT/HCPCS: 81025; 88305; 45378; 43239; J2250; J3010; J2704; J2001

== ENCOUNTER → 2023-02-03 | Outpatient (CLI) | payer BC, OTHER ==
[2023-02-03 07:54] LABS: Basophils % (A) 1 %; Eosinophils # (A) 0.2 k/uL (0-0.7); Eosinophils % (A) 3 %; HCT 30.4 % (34.0-46.0); HGB 10.1 gm/dL (11.4-16.0); Lymphocytes # (A) 1.3 k/uL (1.0-4.8); Lymphocytes % (A) 26 %; MCH 31.8 pg (25.0-35.0); MCHC 33.4 g/dL (31.0-37.0); MCV 95.4 fL (80.0-100.0); Mean Platelet Volume 8.5; Monocytes # (A) 0.2 k/uL (0-1.0); Monocytes % (A) 4 %; Neutrophils # (A) 3.4 k/uL (1.3-7.7); Neutrophils % (A) 65 %; Platelet Count 284 k/uL (150-450); RBC 3.18 m/uL (3.80-5.40); RDW 12.6 % (11.5-15.5); WBC 5.2 k/uL (3.8-10.6)
[2023-02-03 08:03] LABS: African American GFR (CKD) 49 (>60 ml/min/1.73 sqM); Anion Gap 8 mmol/L; Blood Urea Nitrogen 36 mg/dL (7-17); Carbon Dioxide 29 mmol/L (22-30); Chloride 103 mmol/L (98-107); Non-African American GFR(CKD) 42 (>60 ml/min/1.73 sqM); Potassium 4.4 mmol/L (3.5-5.1); Sodium 140 mmol/L (137-145)
[2023-02-03 08:09] LABS: INR 0.9 (<1.2); Partial Thromboplastin Time 22.8 sec (22.0-30.0); Prothrombin Time 9.4 sec (9.0-12.0)
== END | disposition home or self-care (01) ==
LOC: LABWHC1 07:11
PROVIDERS: ATTEND Internal Medicine
DX: N18.2 Chronic kidney disease, stage 2 (mild) (principal)
CPT/HCPCS: 36415; 80051; 82565; 84520; 85025; 85610; 85730

== ENCOUNTER 2023-02-04 08:11 | Day surgery (SDC) | payer BC, OTHER ==
[2023-02-04 08:37] LABS: Glucose,Whole Blood 214 mg/dL (70-110)
[2023-02-04] MEDS ORDERED: DESMOPRESSIN ACETATE 28 MCG in SODIUM CHLORIDE 0.9% 50 ML IVPB ONE (09:00)
[2023-02-04] MEDS ORDERED: HYDROmorphone 0.5 MG/0.5 ML SYRINGE IVP PRN (09:01)
[2023-02-04] MEDS ORDERED: ALPRAZolam 0.5 MG TAB PO PRN (09:01)
[2023-02-04 09:13] VITALS: TEMP 97.8
--- NOTE | 2023-02-04 11:11 | CT ---
EXAMINATION TYPE: CT biopsy renal RT DATE OF EXAM: 02/04/2023 COMPARISON: NONE HISTORY: right renal bx CT DLP: 2854 mGycm The procedure was explained to the patient. The risks, complications, benefits, and alternatives wer e discussed and any questions were answered. Informed consent was obtained. Patient was placed pron e on the CT table and prepped and draped in the usual sterile fashion. Utilizing CT guidance, an18 gauge core biopsy needle access into the right renal cortex was achieved and two 18 gauge core samples were obtained. The patient was stable throughout the procedure and rem ained stable upon discharge. IMPRESSION: Successful 18 gauge core biopsy of the kidney function.
[2023-02-04 12:33] VITALS: RESP 16
[2023-02-04 15:02] VITALS: BP 132/67; PULSE 85
[2023-02-04] MEDS ORDERED: ACETAMINOPHEN TAB 500 MG TAB PO PRN (15:03)
== END 2023-02-04 16:05 | disposition home or self-care (01) ==
LOC: RADPROMAIN 08:11
PROVIDERS: ATTEND Internal Medicine
DX: E11.21 Type 2 diabetes mellitus with diabetic nephropathy (principal); I12.9 Hypertensive chronic kidney disease with stage 1 through stage 4 chronic kidney disease, or unspecified chronic kidney disease; N18.2 Chronic kidney disease, stage 2 (mild); E11.22 Type 2 diabetes mellitus with diabetic chronic kidney disease; R80.9 Proteinuria, unspecified; F10.20 Alcohol dependence, uncomplicated; D63.1 Anemia in chronic kidney disease; Z79.1 Long term (current) use of non-steroidal anti-inflammatories (NSAID); Z79.4 Long term (current) use of insulin; Z79.85 Long-term (current) use of injectable non-insulin antidiabetic drugs; Z79.899 Other long term (current) drug therapy
CPT/HCPCS: 86900; 86901; 86850; 36415; 50200; 77012; J2597; J1170

== ENCOUNTER → 2023-03-03 | Outpatient (CLI) | payer BC, OTHER ==
[2023-03-03 16:43] LABS: % Iron Saturation 17.75 (12.00-45.00); BUN/Creat Ratio 16.41 Ratio (12.00-20.00); Blood Urea Nitrogen 27.9 mg/dL (9.0-27.0); Chloride 102 mmol/L (96-109); Glucose 144 mg/dL (70-110); Iron 49 UG/DL (50-170); Phosphorus 2.9 mg/dL (2.4-5.1); Potassium 4.3 mmol/L (3.5-5.5); Sodium 140 mmol/L (135-145); Total Iron Binding Capacity 276 UG/DL (228-460); Uric Acid 7.9 mg/dL (2.9-7.7)
[2023-03-03 16:44] LABS: ALT 17 U/L (8-44); AST 16 U/L (13-35); Albumin/Globulin Ratio 1.48 Ratio (1.60-3.17); Alkaline Phosphatase 82 U/L (41-126); Calcium 9.5 mg/dL (8.7-10.3); Carbon Dioxide 27.8 mmol/L (21.6-31.8); Ferritin 42.2 ng/mL (10.0-291.0); Globulin 2.7 d/dL (1.6-3.3); Total Bilirubin 0.3 mg/dL (0.3-1.2); Total Protein 6.7 d/dL (6.2-8.2)
[2023-03-03 18:14] LABS: Basophils # (A) 0.09 X 10*3/uL (0.00-0.10); Basophils % (A) 1.2 %; Eosinophils # (A) 0.17 X 10*3/uL (0.04-0.35); Eosinophils % (A) 2.3 %; HCT 30.3 % (37.2-46.3); HGB 9.8 d/dL (12.0-15.0); Lymphocytes # (A) 1.62 X 10*3/uL (0.90-5.00); Lymphocytes % (A) 22.1 %; MCHC 32.3 d/dL (32.0-37.0); MCV 95.9 FL (80.0-97.0); Mean Platelet Volume 11.5 FL (9.5-12.2); Monocytes % (A) 5.5 %; NRBC Per 100 WBC 0 X 10*3/uL (0.00-0.01); Neutrophils # (A) 5.02 X 10*3/uL (1.80-7.70); Neutrophils % (A) 68.6 %; Platelet Count 277 X 10*3/uL (140-440); RBC 3.16 X 10*6/uL (4.10-5.20); RDW 12.3 % (11.5-14.5); WBC 7.32 X 10*3/uL (4.50-10.00)
[2023-03-03 22:59] LABS: Appearance,Urine Cloudy (Clear); Bilirubin,Urine Negative (Negative); Blood,Urine Large (Negative); Color,Urine Yellow (Yellow); Ketones,Urine Negative (Negative); Nitrite,Urine Negative (Negative); Specific Gravity,Urine 1.017 (1.001-1.030)
[2023-03-03 23:18] LABS: Bacteria,Urine Trace
== END | disposition home or self-care (01) ==
LOC: LABWHC1 08:06
PROVIDERS: ATTEND Internal Medicine
DX: E55.9 Vitamin D deficiency, unspecified (principal); N18.2 Chronic kidney disease, stage 2 (mild); D63.1 Anemia in chronic kidney disease; N39.0 Urinary tract infection, site not specified; N25.81 Secondary hyperparathyroidism of renal origin; M10.9 Gout, unspecified; R80.9 Proteinuria, unspecified
CPT/HCPCS: 36415; 80053; 81001; 82043; 82306; 82570; 82728; 83540; 83550; 83735; 83970; 84100; 84550; 85025

== ENCOUNTER → 2023-04-25 | Outpatient (CLI) | payer BC, OTHER ==
--- NOTE | 2023-04-27 13:08 | MR ---
EXAMINATION TYPE: MR shoulder RT wo con DATE OF EXAM: 04/25/2023 COMPARISON: None HISTORY: Right shoulder pain especially when raising it, not able to reach behind herself TECHNIQUE: Multiplanar, multisequence imaging of the right shoulder is performed without contrast. FINDINGS: The osseous structures are intact there is no bone contusion or fracture. There is no shoulder impingement in the AC joint is minimally degenerated. Glenohumeral joint is norm al cartilaginous labrum is grossly intact. Biceps tendon and biceps anchor are intact without abnormal signal intensity or displacement.. There are tiny rim rent tears of the supraspinatus and infraspinatus tendons without detachment or re traction of the musculotendinous junction. There is a moderate size nearly full-thickness intrasubstance tear of the subscapularis tendon. There is no joint effusion. There is no subacromial or subdeltoid bursitis. IMPRESSION: 1. Tiny rim rent tears of the supraspinatus and infraspinatus tendons. 2. Near full-thickness intrasubstance tear of the subscapularis tendon. 3. No shoulder impingement and minimal degenerative change of the AC joint. 4. No abnormality of the biceps tendon or glenohumeral joint.
== END | disposition home or self-care (01) ==
LOC: RADMRIMAIN 19:09
PROVIDERS: ATTEND Internal Medicine Rheumatology
DX: M75.121 Complete rotator cuff tear or rupture of right shoulder, not specified as traumatic (principal)

== ENCOUNTER → 2023-07-31 | Outpatient (CLI) | payer BC, OTHER ==
--- NOTE | 2023-07-31 13:13 | NM ---
EXAMINATION TYPE: NM gastric emptying static DATE OF EXAM: 07/31/2023 COMPARISON: NONE CLINICAL INDICATION: Female, 32 years old with history of R11.2 NAUSEA WITH VOMITING, UNSPECIFIED; Following administration of 2mCi mCi Tc 99m Sulfur Colloid with 4oz eggs, two toast and jelly and 4oz water., projection images of the abdomen were obtained 10min minutes post ingestion. Patient Emptying Values 1 Hour 21% % 2 Hours 39% % 3 Hours 61% % 4 Hours 85% % Gastroesophagel reflux: None IMPRESSION: Gastric emptying: Minimally delayed emptying at 2 and 3 hours with normalization at 4 hours. Gastroesophageal reflux: None Gastric emptying normal percentage values: 30 minutes: <70% of retention (> 30% emptying) suggests abnormally fast emptying. 60 minutes: <90% retention (>10% emptying) is normal; less than 30% retention (>70% emptying) suggest s abnormally rapid emptying. 90 minutes: <65% retention (> 35% emptying) is normal. 120 minutes: <60% retention (> 40% emptying) is normal. 180 minutes: <30% retention (> 70% emptying) is normal. Gastric emptying T-1/2: Solid: The normal range is 60-105 minutes Liquid only: Normal range is 10-45 minutes. Liquid only-children: At 60 minutes, normal range is 44-58 % . Liquid only-infants: At 60 minutes, normal range is 32-64 %. Additional references: Gastric Emptying Scintigraphy [email or web address]://[email or web address]
== END | disposition home or self-care (01) ==
LOC: RADNMMAIN 06:48
PROVIDERS: ATTEND Internal Medicine Gastroenterology
DX: R11.2 Nausea with vomiting, unspecified (principal)
CPT/HCPCS: 78264; A9541

== ENCOUNTER → 2023-10-17 | Outpatient (CLI) | payer BC, OTHER ==
--- NOTE | 2023-10-17 18:49 | CT ---
EXAMINATION TYPE: CT chest wo con CT DLP: 529.2 mGycm, Automated exposure control for dose reduction was used. DATE OF EXAM: 10/17/2023 5:30 PM COMPARISON: None CLINICAL INDICATION:Female, 33 years old with history of R91.1 SOLITARY PULMONARY NODULE; [facility], nodule on lung in 10/2022, no priors TECHNIQUE: Multiple axial images were obtained through the chest. Sagittal and coronal reformats were created for review. Contrast used: mL of (None if empty) Oral contrast used: (None if empty) FINDINGS: LUNGS/ PLEURA: No focal consolidation, pneumothorax or pleural effusion. No pulmonary nodules identif ied. AIRWAY: Patent and unremarkable. HEART: Size within normal limits. MEDIASTINUM: No gross evidence of adenopathy. VASCULATURE: No aortic aneurysm. MUSCULOSKELETAL: No acute osseous abnormalities SOFT TISSUES/LYMPH NODES: Unremarkable. LOWER NECK: No significant findings. UPPER ABDOMEN: No significant findings. IMPRESSION: No direct comparisons are available for comparison. No pulmonary nodules identified. No l ymphadenopathy. Follow up recommendations for incidental pulmonary nodules, if there are any, are per [employer]?s [place] [employer] or [employer]. [email or web address]/[email or web address]=us
== END | disposition home or self-care (01) ==
LOC: RADCTMAIN 17:09
PROVIDERS: ATTEND Family Medicine
DX: R91.1 Solitary pulmonary nodule (principal)
CPT/HCPCS: 71250

== ENCOUNTER → 2023-10-23 | Outpatient (CLI) | payer BC, OTHER ==
--- NOTE | 2023-10-23 13:10 | US ---
EXAMINATION TYPE: US abdomen complete DATE OF EXAM: 10/23/2023 COMPARISON: NONE CLINICAL INDICATION: Female, 33 years old with history of D50.9 IRON DEFICIENCY ANEMIA, UNSPECIFIED; Anemia, CKD TECHNIQUE: Multiple sonographic images of the abdomen are obtained. FINDINGS: EXAM MEASUREMENTS: Liver Length: 17.4 cm Gallbladder Wall: 0.2 cm CBD: 0.3 cm Spleen: 13.8 cm Right Kidney: 11.9 x 4.6 x 5.1 cm Left Kidney: 11.5 x 5.2 x 4.7 cm MANAGER OF TRANSPORTATION NOTES: Technical limitations due to patient's body habitus and large amount of overlyin g bowel gas Pancreas: Obscured by bowel gas Liver: Coarsened echotexture. Borderline enlarged. Gallbladder: no evidence of stones Evidence for sonographic Wallace's sign: no CBD: Incompletely visualized. The visualized portion is normal caliber at 3.2 mm. Spleen: upper limits of normal Right Kidney: no evidence of hydronephrosis Left Kidney: no evidence of hydronephrosis Upper IVC: wnl Abd Aorta: wnl IMPRESSION: 1. Borderline hepatosplenomegaly (liver 17.4 cm and spleen 13.8 cm). 2. Slight coarsened appearance to the liver parenchyma could be technical or could reflect nonspecifi c hepatocellular disease. 3. No gallstones or biliary ductal dilatation.
== END | disposition home or self-care (01) ==
LOC: RADUSWWP 07:09
PROVIDERS: ATTEND Family Medicine
DX: K76.89 Other specified diseases of liver (principal); R16.2 Hepatomegaly with splenomegaly, not elsewhere classified; D50.9 Iron deficiency anemia, unspecified; N18.9 Chronic kidney disease, unspecified; D63.1 Anemia in chronic kidney disease
CPT/HCPCS: 76700

== ENCOUNTER → 2024-04-30 | Outpatient (CLI) | payer BC | END | disposition home or self-care (01) | LOC: LABWHC1 08:26 | PROVIDERS: ATTEND Obstetrics & Gynecology | DX: O20.0 Threatened abortion | CPT/HCPCS: 36415; 84702 ==

== ENCOUNTER 2024-05-21 10:07 | Inpatient (IN) | payer BC ==
--- NOTE | 2024-05-21 10:43 | ED ---
Nausea/Vomiting/Diarrhea HPI - General Chief complaint: Nausea/Vomiting/Diarrhea Stated complaint: N/V 8WKS PREG Time Seen by Provider: 05/21/24 10:14 Source: patient, RN notes reviewed Mode of arrival: ambulatory Limitations: no limitations - History of Present Illness Initial comments: 33 year old female presents to emergency department with chief complaint of nausea and vomitting x 2 days. States that she has a history of hypertension and CKD, has not been able to keep her blood pressure medications down, unsure what her blood sugar has been running. She also reports spotting with vomiting episodes. Denies fever, syncope, and shortness of breath. - Related Data Home Medications Medication Instructions Recorded Confirmed Ferrous Sulfate [Feosol] 650 mg PO DAILY 01/23/23 05/21/24 Folic Acid 1 mg PO DAILY 01/23/23 05/21/24 Insulin Glargine,Hum.rec.anlog 40 units SQ QAM 01/23/23 05/21/24 [Lantus Solostar Pen] Insulin Lispro [humaLOG Kwikpen] 5 units SQ AC-TID 10/24/23 05/21/24 Ergocalciferol [Vitamin D2 (1250 1,250 mcg PO MO 05/21/24 05/21/24 Mcg = [id number] Iu)] Insulin Lispro [humaLOG Kwikpen] See Protocol SQ AC-TID 05/21/24 05/21/24 Levothyroxine Sodium [Synthroid] 112 mcg PO MOTUWETHFR 05/21/24 05/21/24 Levothyroxine Sodium [Synthroid] 224 mcg PO SUSA 05/21/24 05/21/24 NIFEdipine [Adalat CC] 30 mg PO BID 05/21/24 05/21/24 Ondansetron Odt [Zofran Odt] 4 mg PO Q6H PRN 05/21/24 05/21/24 hydrALAZINE HCL [Apresoline] 50 mg PO TID-W/MEALS 05/21/24 05/21/24 Allergies Allergy/AdvReac Type Severity Reaction Status Date / Time No Known Allergies Allergy Verified 05/21/24 15:14 Review of Systems ROS Statement: Those systems with pertinent positive or pertinent negative responses have been documented in the HPI. ROS Other: All systems not noted in ROS Statement are negative. Past Medical History Past Medical History: Diabetes Mellitus, Hypertension, Renal Disease, Thyroid Disorder Additional Past Medical History / Comment(s): CKD STAGE 4 History of Any Multi-Drug Resistant Organisms: MRSA Date of last positivie culture/infection: 03/26/18 MDRO Source:: WOUND Past Surgical History: Section, Tonsillectomy Additional Past Surgical History / Comment(s): tubal injection for infertility (current admission) laser eye b/l Past Anesthesia/Blood Transfusion Reactions: No Reported Reaction Past Psychological History: Anxiety, Depression Smoking Status: Former smoker - Past Family History Mother History Unknown: Yes General Exam Limitations: no limitations General appearance: alert, in no apparent distress Head exam: Present: atraumatic, normocephalic, normal inspection Eye exam: Present: normal appearance, PERRL, EOMI. Absent: scleral icterus, conjunctival injection, periorbital swelling ENT exam: Present: normal exam, mucous membranes moist Neck exam: Present: normal inspection. Absent: tenderness, meningismus, lymphadenopathy Respiratory exam: Present: normal lung sounds bilaterally. Absent: respiratory distress, wheezes, rales, rhonchi, stridor Cardiovascular Exam: Present: regular rate, normal rhythm, normal heart sounds. Absent: systolic murmur, diastolic murmur, rubs, gallop, clicks GI/Abdominal exam: Present: soft, normal bowel sounds. Absent: distended, tenderness, guarding, rebound, rigid Extremities exam: Present: normal inspection, full ROM, normal capillary refill. Absent: tenderness, pedal edema, joint swelling, calf tenderness Back exam: Present: normal inspection Neurological exam: Present: alert, oriented X3, CN II-XII intact Psychiatric exam: Present: normal affect, normal mood Skin exam: Present: warm, dry, intact, normal color. Absent: rash Course Vital Signs 05/21/24 05/21/24 05/21/24 10:08 11:44 11:45 Temperature 98.2 F 99.1 F Pulse Rate 100 86 Respiratory 18 25 H Rate Blood Pressure 197/106 178/91 O2 Sat by Pulse 98 Oximetry 05/21/24 05/21/24 05/21/24 12:00 12:15 12:30 Temperature Pulse Rate 105 H 124 H 98 Respiratory 21 22 12 Rate Blood Pressure 165/76 156/82 163/121 O2 Sat by Pulse Oximetry 05/21/24 05/21/2424 12:42 12:45 13:00 Temperature 99.3 F Pulse Rate 108 H 105 H Respiratory 37 H 11 L Rate Blood Pressure 145/78 163/99 O2 Sat by Pulse Oximetry 05/21/24 05/21/24 05/21/24 13:15 13:30 13:45 Temperature Pulse Rate 125 H 101 H 112 H Respiratory 19 16 13 Rate Blood Pressure 173/97 129/107 122/102 O2 Sat by Pulse Oximetry 05/21/24 05/21/24 05/21/24 14:00 14:15 15:30 Temperature Pulse Rate 114 H Respiratory 19 Rate Blood Pressure 191/99 194/107 195/104 O2 Sat by Pulse Oximetry 05/21/24 05/21/24 05/21/24 16:00 16:15 16:45 Temperature Pulse Rate Respiratory Rate Blood Pressure 190/97 190/98 164/79 O2 Sat by Pulse Oximetry 05/21/24 05/21/24 05/21/24 16:55 17:00 17:15 Temperature Pulse Rate 107 H 106 H Respiratory 18 18 Rate Blood Pressure 193/93 193/93 177/86 O2 Sat by Pulse 96 97 96 Oximetry 05/21/24 05/21/24 05/21/24 17:30 17:45 18:00 Temperature Pulse Rate Respiratory Rate Blood Pressure 177/86 190/88 197/94 O2 Sat by Pulse Oximetry 05/21/24 05/21/24 05/21/24 18:30 18:45 19:00 Temperature Pulse Rate 107 H 107 H 106 H Respiratory 15 10 L 17 Rate Blood Pressure 199/111 195/89 O2 Sat by Pulse Oximetry 05/21/24 05/21/24 05/21/24 19:15 19:30 19:45 Temperature Pulse Rate 113 H 93 121 H Respiratory 13 15 20 Rate Blood Pressure 176/96 184/85 174/92 O2 Sat by Pulse Oximetry 05/21/24 05/21/24 05/21/24 20:00 20:15 20:30 Temperature Pulse Rate 93 92 106 H Respiratory 20 20 20 Rate Blood Pressure 180/64 181/92 149/96 O2 Sat by Pulse Oximetry 05/21/24 05/21/24 05/21/24 20:45 21:00 21:15 Temperature 99.1 F 99.3 F Pulse Rate 96 115 H 93 Respiratory 19 22 16 Rate Blood Pressure 188/100 181/89 169/82 O2 Sat by Pulse Oximetry Medical Decision Making - Medical Decision Making Was pt. sent in by a medical professional or institution (, ANDREA, TRIPE SCRAPER, urgent care, hospital, or fpc...) When possible be specific @ -No Did you speak to anyone other than the patient for history (EMS, parent, family, police, friend...)? What history was obtained from this source @ -No Did you review nursing and triage notes (agree or disagree)? Why? @ -I reviewed and agree with nursing and triage notes Were old charts reviewed (outside hosp., previous admission, EMS record, old EKG, old radiological studies, urgent care reports/EKG's, fpc records)? Report findings @ -No old charts were reviewed Differential Diagnosis (chest pain, altered mental status, abdominal pain women, abdominal pain men, vaginal bleeding, weakness, fever, dyspnea, syncope, headache, dizziness, GI bleed, back pain, seizure, CVA, palpatations, mental health, musculoskeletal)? @ -Differential Abdominal Pain Women: Appendicitis, Cholecystitis, diverticulosis, ischemic bowel, pancreatitis, hepatitis, UTI, gastroenteritis, AAA, incarcerated hernia, bowel obstruction, constipation, inflammatory bowel, hepatitis, peptic ulcer disease, splenic infarction, perforated viscus, vulvitis, ovarian torsion, PID, kidney stone, placenta abruption, this is not meant to be an all-inclusive list EKG interpreted by me (3pts min.). @ -As above X-rays interpreted by me (1pt min.). @ -None done CT interpreted by me (1pt min.). @ -None done U/S interpreted by me (1pt. min.). @ -Ultrasound showing viable IUP with heart rate 162 What testing was considered but not performed or refused? (CT, X-rays, U/S, labs)? Why? @ -None What meds were considered but not given or refused? Why? @ -None Did you discuss the management of the patient with other professionals (professionals i.e. ANDREA Vang, TRIPE SCRAPER, lab, RT, psych nurse, social worker school, compo caster, teacher, forest officer, employment case manager)? Give summary @ -EMH for admission with consults to nephrology, PRACTICE OR STUDENT TEACHER Was smoking cessation discussed for >3mins.? @ -No Was critical care preformed (if so, how long)? @ -No Were there social determinants of health that impacted care today? How? (Homelessness, low income, unemployed, alcoholism, drug addiction, transportation, low edu. Level, literacy, decrease access to med. care, intermediate, rehab)? @ -No Was there de-escalation of care discussed even if they declined (Discuss DNR or withdrawal of care, Hospice)? DNR status @ -No What co-morbidities impacted this encounter? (DM, HTN, Smoking, COPD, CAD, Cancer, CVA, ARF, Chemo, Hep., AIDS, mental health diagnosis, sleep apnea, morbid obesity)? @ -CKD, hypertension Was patient admitted / discharged? Hospital course, mention meds given and route, prescriptions, significant lab abnormalities, going to OR and other pertinent info. @ -Admitted patient presented for nausea vomiting hypertension. Patient has chronic hypertension chronic kidney disease uncontrolled unable to keep oral intake in patient will be admitted as she received multiple doses of IV antihypertensive meds and antiemetics. Undiagnosed new problem with uncertain prognosis? @ -No Drug Therapy requiring intensive monitoring for toxicity (Heparin, Nitro, Insulin, Cardizem)? @ -No Were any procedures done? @ -No Diagnosis/symptom? @ -Intractable nausea vomiting, chronic kidney disease, hypertension, Acute, or Chronic, or Acute on Chronic? @ -Acute chronic acute acute Uncomplicated (without systemic symptoms) or Complicated (systemic symptoms)? @ -Complicated Side effects of treatment? @ -No Exacerbation, Progression, or Severe Exacerbation? @ -No Poses a threat to life or bodily function? How? (Chest pain, [place], [place], pneumonia, PE, COPD, DKA, ARF, appy, cholecystitis, CVA, Diverticulitis, Homicidal, Suicidal, threat to staff... and all critical care pts) @ -Yes uncontrolled hypertension, CVA - Lab Data Result diagrams: 05/22/24 06:18 05/22/24 06:18 Lab Results 05/21/24 05/21/24 05/21/24 Range/Units 11:03 11:03 11:03 WBC 12.7 H (3.8-10.6) k/uL RBC 3.36 L (3.80-5.40) m/uL Hgb 10.7 L (11.4-16.0) gm/dL Hct 31.3 L (34.0-46.0) % MCV 93.4 (80.0-100.0) fL MCH 31.9 (25.0-35.0) pg MCHC 34.2 (31.0-37.0) g/dL RDW 12.4 (11.5-15.5) % Plt Count 292 (150-450) k/uL MPV 7.7 Neutrophils % 89 % Lymphocytes % 7 % Monocytes % 2 % Eosinophils % 1 % Basophils % 0 % Neutrophils # 11.3 H (1.3-7.7) k/uL Lymphocytes # 0.8 L (1.0-4.8) k/uL Monocytes # 0.3 (0-1.0) k/uL Eosinophils # 0.1 (0-0.7) k/uL Basophils # 0.0 (0-0.2) k/uL VBG pH (7.31-7.41) VBG pCO2 (37-51) mmHg VBG HCO3 (24-28) mmol/L Sodium 133 L (137-145) mmol/L Potassium 4.1 (3.5-5.1) mmol/L Chloride 99 (98-107) mmol/L Carbon Dioxide 29 (22-30) mmol/L Anion Gap 5 mmol/L BUN 26 H (7-17) mg/dL Creatinine 2.03 H (0.52-1.04) mg/dL Est GFR (CKD-EPI)AfAm 37 (>60 ml/min/1.73 sqM) Est GFR (CKD-EPI)NonAf 32 (>60 ml/min/1.73 sqM) Glucose 201 H (74-99) mg/dL Plasma Lactic Acid Arsh 0.7 (0.7-2.0) mmol/L Uric Acid 5.4 (3.7-7.4) mg/dL Calcium 9.1 (8.4-10.2) mg/dL Magnesium 1.6 (1.6-2.3) mg/dL Total Bilirubin 0.4 (0.2-1.3) mg/dL AST 24 (14-36) U/L ALT 19 (4-34) U/L Alkaline Phosphatase 66 (38-126) U/L Lactate Dehydrogenase 179 (120-246) U/L Total Protein 6.3 (6.3-8.2) g/dL Albumin 3.6 (3.5-5.0) g/dL Urine Color Urine Appearance (Clear) Urine pH (5.0-8.0) Ur Specific [place] (1.001-1.035) Urine Protein (Negative) Urine Glucose (UA) (Negative) Urine Ketones (Negative) Urine Blood (Negative) Urine Nitrite (Negative) Urine Bilirubin (Negative) Urine Urobilinogen (<2.0) mg/dL Ur Leukocyte Esterase (Negative) Urine RBC (0-5) /hpf Urine WBC (0-5) /hpf Ur Squamous Epith Cells (0-4) /hpf Urine Bacteria (None) /hpf Granular Casts (0) /lpf Urine Mucus (None) /hpf Acetone, Qual Negative (Negative) Influenza Type A (PCR) (Not Detectd) Influenza Type B (PCR) (Not Detectd) RSV (PCR) (Not Detectd) SARS-CoV-2 (PCR) (Not Detectd) 05/21/24 05/21/24 05/21/24 Range/Units 11:03 11:30 12:43 WBC (3.8-10.6) k/uL RBC (3.80-5.40) m/uL Hgb (11.4-16.0) gm/dL Hct (34.0-46.0) % MCV (80.0-100.0) fL MCH (25.0-35.0) pg MCHC (31.0-37.0) g/dL RDW (11.5-15.5) % Plt Count (150-450) k/uL MPV Neutrophils % % Lymphocytes % % Monocytes % % Eosinophils % % Basophils % % Neutrophils # (1.3-7.7) k/uL Lymphocytes # (1.0-4.8) k/uL Monocytes # (0-1.0) k/uL Eosinophils # (0-0.7) k/uL Basophils # (0-0.2) k/uL VBG pH 7.40 (7.31-7.41) VBG pCO2 46 (37-51) mmHg VBG HCO3 28 (24-28) mmol/L Sodium (137-145) mmol/L Potassium (3.5-5.1) mmol/L Chloride (98-107) mmol/L Carbon Dioxide (22-30) mmol/L Anion Gap mmol/L BUN (7-17) mg/dL Creatinine (0.52-1.04) mg/dL Est GFR (CKD-EPI)AfAm (>60 ml/min/1.73 sqM) Est GFR (CKD-EPI)NonAf (>60 ml/min/1.73 sqM) Glucose (74-99) mg/dL Plasma Lactic Acid Arsh (0.7-2.0) mmol/L Uric Acid (3.7-7.4) mg/dL Calcium (8.4-10.2) mg/dL Magnesium (1.6-2.3) mg/dL Total Bilirubin (0.2-1.3) mg/dL AST (14-36) U/L ALT (4-34) U/L Alkaline Phosphatase (38-126) U/L Lactate Dehydrogenase (120-246) U/L Total Protein (6.3-8.2) g/dL Albumin (3.5-5.0) g/dL Urine Color Light Yellow Urine Appearance Cloudy H (Clear) Urine pH 6.0 (5.0-8.0) Ur Specific [place] 1.022 (1.001-1.035) Urine Protein 4+ H (Negative) Urine Glucose (UA) 3+ H (Negative) Urine Ketones Negative (Negative) Urine Blood Moderate H (Negative) Urine Nitrite Negative (Negative) Urine Bilirubin Negative (Negative) Urine Urobilinogen <2.0 (<2.0) mg/dL Ur Leukocyte Esterase Negative (Negative) Urine RBC 5 (0-5) /hpf Urine WBC 2 (0-5) /hpf Ur Squamous Epith Cells 7 H (0-4) /hpf Urine Bacteria Rare H (None) /hpf Granular Casts 1 (0) /lpf Urine Mucus Rare H (None) /hpf Acetone, Qual (Negative) Influenza Type A (PCR) Not Detected (Not Detectd) Influenza Type B (PCR) Not Detected (Not Detectd) RSV (PCR) Not Detected (Not Detectd) SARS-CoV-2 (PCR) Not Detected (Not Detectd) - EKG Data -: EKG Interpreted by Mo EKG Comments: EKG performed at 10: 58 sinus rhythm rate of 80 UT 141 QRS 88 QT/QTc 381/417 Disposition Clinical Impression: Intractable nausea and vomiting, Uncontrolled hypertension, Chronic kidney disease, , Hyperglycemia due to diabetes mellitus Disposition: ADMITTED IP TO THIS HOSP Condition: Fair Time of Disposition: 13:36
[2024-05-21] MEDS: SODIUM CHLORIDE 0.9% 500 ML 500 ML IV ONE ×2 (11:04→12:43)
[2024-05-21] MEDS: METOCLOPRAMIDE 5 MG/ML 2 ML VIAL IVP STA (11:10)
[2024-05-21] MEDS: hydrALAZINE HCL 20 MG/ML 1 ML VIAL IVP STA ×3 (11:12→17:05)
[2024-05-21 11:13] LABS: VBG PH 7.4 (7.31-7.41)
[2024-05-21 11:14] LABS: Basophils % (A) 0 %; Eosinophils # (A) 0.1 k/uL (0-0.7); Eosinophils % (A) 1 %; HCT 31.3 % (34.0-46.0); HGB 10.7 gm/dL (11.4-16.0); Lymphocytes # (A) 0.8 k/uL (1.0-4.8); Lymphocytes % (A) 7 %; MCH 31.9 pg (25.0-35.0); MCHC 34.2 g/dL (31.0-37.0); MCV 93.4 fL (80.0-100.0); Mean Platelet Volume 7.7; Monocytes # (A) 0.3 k/uL (0-1.0); Monocytes % (A) 2 %; Neutrophils # (A) 11.3 k/uL (1.3-7.7); Neutrophils % (A) 89 %; Platelet Count 292 k/uL (150-450); RBC 3.36 m/uL (3.80-5.40); RDW 12.4 % (11.5-15.5); WBC 12.7 k/uL (3.8-10.6)
[2024-05-21 11:31] LABS: ALT 19 U/L (4-34); AST 24 U/L (14-36); African American GFR (CKD) 37 (>60 ml/min/1.73 sqM); Albumin 3.6 g/dL (3.5-5.0); Alkaline Phosphatase 66 U/L (38-126); Anion Gap 5 mmol/L; Blood Urea Nitrogen 26 mg/dL (7-17); Calcium 9.1 mg/dL (8.4-10.2); Carbon Dioxide 29 mmol/L (22-30); Chloride 99 mmol/L (98-107); Glucose 201 mg/dL (74-99); LDH 179 U/L (120-246); Magnesium 1.6 mg/dL (1.6-2.3); Non-African American GFR(CKD) 32 (>60 ml/min/1.73 sqM); Potassium 4.1 mmol/L (3.5-5.1); Sodium 133 mmol/L (137-145); Total Bilirubin 0.4 mg/dL (0.2-1.3); Total Protein 6.3 g/dL (6.3-8.2); Uric Acid 5.4 mg/dL (3.7-7.4)
[2024-05-21 11:52] LABS: Appearance,Urine Cloudy (Clear); Bacteria,Urine Rare /hpf; Bilirubin,Urine Negative (Negative); Blood,Urine Moderate (Negative); Color,Urine Light Yellow; Glucose,Urine (UA) 3+ (Negative); Granular Casts,Urine 1 /lpf (0); Ketones,Urine Negative (Negative); Leukocyte Esterase,Urine Negative (Negative); Mucus,Urine Rare /hpf; Nitrite,Urine Negative (Negative); Protein,Urine 4+ (Negative); RBC,Urine 5 /hpf (0-5); Specific Gravity,Urine 1.022 (1.001-1.035); Squamous Epithelial Cell,Urine 7 /hpf (0-4); Urobilinogen,Urine <2.0 mg/dL (<2.0); WBC,Urine 2 /hpf (0-5)
--- NOTE | 2024-05-21 12:21 | US ---
EXAMINATION TYPE: Transabdominal DATE OF EXAM: 05/21/2024 11:36 AM COMPARISON: NONE CLINICAL INDICATION: Female, 33 years old with history of pain; nausea and vomiting EXAM PERFORMED: Transabdominal (TA) EXAM MEASUREMENTS: GESTATIONAL AGE / DATING Physician Established: (8 weeks/5 days) EDC: 12/26/2024 Dates by LMP: (8 weeks/5 days) EDC: 12/26/2024 Dates by First Scan: No previous this is first scan Dates by Current Scan for: (8 weeks/4 days) EDC: 12/27/2024 MATERNAL ANATOMY Uterus: 13.1 x 7.1 x 9.0 cm Right Ovary: obscured by bowel gas Left Ovary: 2.8 x 2.6 x 3.1 cm there may be a small cyst on the left ovary. Post CDS / Adnexa: wnl Presence of free fluid: no Presence of corpus luteal cyst: yes left Presence of subchorionic bleed: no GESTATION / SURVEY CRL: 2.01 cm (8 weeks/4 days) Yolk Sac (normal less than 6mm): 4 mm Heart Rate: 162 bpm Rhythm: Normal IUP: Viable IUP IMPRESSION: 1. Single intrauterine gestation estimated at 8 weeks 4 days gestation based on crown-rump length. Ca rdiac activity measures 162 bpm. [facility], , 05/21/2024 12:18 PM
[2024-05-21] MEDS: ONDANSETRON 4 MG/2 ML VIAL IVP STA ×2 (12:38→13:46)
[2024-05-21] MEDS: ACETAMINOPHEN IV (For NPO) 1,000 MG in EMPTY BAG 1 BAG IVPB STA (13:06)
[2024-05-21] MEDS ORDERED: NALOXONE 0.4 MG/ML 1 ML VIAL IV PRN (13:36)
[2024-05-21] MEDS: diphenhydrAMINE 50 MG/ML 1 ML VIAL IVP STA (13:46)
[2024-05-21] MEDS: SODIUM CHLORIDE 0.9% 1,000 ML IV SCH (13:55)
[2024-05-21] MEDS: hydrALAZINE HCL 20 MG/ML 1 ML VIAL IVP PRN (15:38)
[2024-05-21] MEDS: FAMOTIDINE 20 MG/2 ML VIAL IV SCH (15:49)
--- NOTE | 2024-05-21 16:22 | HP ---
HISTORY AND PHYSICAL CHIEF COMPLAINT: Nausea, vomiting. HISTORY OF PRESENT ILLNESS: This is a 33-year-old woman with a past medical history of multiple medical problems including diabetes mellitus type 2, hypertension, chronic kidney disease, stage 4, being followed by Dr. Meraz and is 8 weeks . The patient just noticed this for the last 2 weeks, the patient unable to keep anything down. The patient came to [facility] and admitted for further evaluation and treatment. The patient had some spotting also. The blood pressure was found to be elevated up to 163/121. There is no history of any fever, rigors, or chills. PAST MEDICAL HISTORY: Hypertension, diabetes. Rest of the history and rest of the chart is also noted. HOME MEDICATIONS: Noted. Hydralazine. Dose and rest of medications noted. ALLERGIES: None. FAMILY HISTORY: No history of heart disease or strokes in the family. SOCIAL HISTORY: Previous history of smoking. REVIEW OF SYSTEMS: Fourteen-point review is negative except as mentioned earlier. PHYSICAL EXAMINATION: VITAL SIGNS: Pulse is 105, blood pressure 160/99, respirations 11. HEENT: Conjunctivae normal. NECK: No JVD. CARDIOVASCULAR: S1, S2. RESPIRATIONS: Breath sounds diminished at the bases. A few scattered rhonchi. ABDOMEN: Soft, nontender. No mass. LEGS: No edema. NERVOUS SYSTEM: Nonfocal. SKIN: No ulcer, rash, bleeding. JOINTS: No active deforming arthropathy. LABORATORY DATA: WBC 12.7, creatinine 2.03. ASSESSMENT: 1. Accelerated hypertension. 2. Intractable nausea and vomiting. 3. Acute on chronic kidney disease. 4. Hyponatremia. 5. Eight weeks . 6. Elevated WBC. 7. Hypertension. 8. History of Methicillin-resistant Staphylococcus aureus. 9. Multiple medical issues. RECOMMENDATIONS: This is a 33-year-old woman who presented with multiple complex medical issues, we will monitor the patient closely. I would recommend IV hydralazine. Resume the home medications. I would also recommend symptomatic treatment for vomiting. Otherwise, see orders for further details and I would also recommend closely follow with ENTRY LEVEL SOFTWARE ENGINEER as well as Nephrology also. Further recommendations to follow. Repeat labs will be ordered. Cautious IV fluids. MMODL / IJN: [id number] /
[2024-05-21] MEDS: LEVOTHYROXINE 112 MCG TAB PO SCH (16:39)
[2024-05-21 16:55] LABS: Glucose,Whole Blood 172 mg/dL (70-110)
[2024-05-21] MEDS ORDERED: DEXTROSE 50% SYRINGE 50 ML IVP PRN ×2 (17:06)
[2024-05-21] MEDS: METOCLOPRAMIDE 5 MG/ML 2 ML VIAL IVP PRN (17:15)
[2024-05-21] MEDS ORDERED: NON FORMULARY DRUG (Insulin Lispro [Humalog Kwikpen] 100 UNIT/ML Insuln.Pen) SQ SCH (17:30)
[2024-05-21] MEDS: INSULIN ASPART (NovoLOG) 100 UNIT/ML VIAL SQ SCH ×2 (20:16)
[2024-05-21] MEDS: NIFEdipine XL 30 MG TAB.ER.24 PO SCH (20:25)
[2024-05-21] MEDS: hydrALAZINE HCL 50 MG TAB PO SCH (21:31)
[2024-05-21 22:09] LABS: Glucose,Whole Blood 205 mg/dL (70-110)
[2024-05-21] MEDS: ACETAMINOPHEN TAB 325 MG TAB PO PRN (22:13)
[2024-05-21] MEDS: ONDANSETRON 4 MG/2 ML VIAL IVP PRN (22:14)
[2024-05-22] MEDS: ACETAMINOPHEN IV (For NPO) 1,000 MG in EMPTY BAG 1 BAG IVPB ONE (00:12)
[2024-05-22] MEDS ORDERED: MORPHINE SULFATE 2 MG/ML SYRINGE IVP PRN (01:31)
[2024-05-22] MEDS: LABETALOL 5 MG/ML VIAL MDV IVP STA (01:35)
[2024-05-22 06:22] LABS: Glucose,Whole Blood 158 mg/dL (70-110)
[2024-05-22 07:14] LABS: Basophils % (A) 0 %; Eosinophils % (A) 0 %; HCT 30.2 % (34.0-46.0); Lymphocytes # (A) 0.9 k/uL (1.0-4.8); Lymphocytes % (A) 8 %; MCH 31.5 pg (25.0-35.0); MCHC 33.2 g/dL (31.0-37.0); MCV 94.9 fL (80.0-100.0); Mean Platelet Volume 8.1; Monocytes # (A) 0.5 k/uL (0-1.0); Monocytes % (A) 4 %; Neutrophils # (A) 9.6 k/uL (1.3-7.7); Neutrophils % (A) 86 %; Platelet Count 319 k/uL (150-450); RBC 3.18 m/uL (3.80-5.40); RDW 12.5 % (11.5-15.5); WBC 11.2 k/uL (3.8-10.6)
[2024-05-22 07:23] LABS: ALT 17 U/L (4-34); AST 25 U/L (14-36); African American GFR (CKD) 37 (>60 ml/min/1.73 sqM); Albumin 3.4 g/dL (3.5-5.0); Alkaline Phosphatase 61 U/L (38-126); Anion Gap 8 mmol/L; Blood Urea Nitrogen 23 mg/dL (7-17); Calcium 8.8 mg/dL (8.4-10.2); Carbon Dioxide 22 mmol/L (22-30); Chloride 104 mmol/L (98-107); Glucose 155 mg/dL (74-99); Non-African American GFR(CKD) 32 (>60 ml/min/1.73 sqM); Potassium 3.8 mmol/L (3.5-5.1); Sodium 134 mmol/L (137-145); Total Bilirubin 0.3 mg/dL (0.2-1.3); Total Protein 6.1 g/dL (6.3-8.2)
[2024-05-22] MEDS: LEVOTHYROXINE 112 MCG TAB PO SCH (09:44)
[2024-05-22] MEDS: FERROUS SULFATE 325 MG TAB PO SCH (09:45)
[2024-05-22] MEDS: FOLIC ACID 1 MG TAB PO SCH (09:45)
[2024-05-22] MEDS: INSULIN DETEMIR (LEVEMIR) 100 UNIT/ML SYR SQ SCH (09:46)
[2024-05-22] MEDS: LABETALOL 100 MG TAB PO SCH (09:48)
[2024-05-22 11:34] LABS: Glucose,Whole Blood 151 mg/dL (70-110)
[2024-05-22 11:58] VITALS: RESP 18
[2024-05-22] MEDS: PANTOPRAZOLE 40 MG/10 ML VIAL IVP SCH (12:40)
--- NOTE | 2024-05-22 13:31 | P.OBCN ---
History of Present Illness Consult date: 05/22/24 Reason for consult: other (, chronic renal disease, nausea and vomiting, chronic hypertension) History of present illness: The patient is a 33-year-old woman who presents to the emergency room at 8+ weeks of with known chronic renal disease and chronic hypertension having developed significant nausea and vomiting and therefore has been unable to keep down any of her antihypertensives. While in the emergency room, she reported having some vaginal bleeding and underwent a pelvic ultrasound which demonstrated a viable 8+ week intrauterine with a subchorionic hemorrhage. The patient has continued to have some bleeding though it is not acute at this time through the night. Her blood pressures were significantly high in the emergency room leading to multiple doses of hydralazine as well as an order for Procardia 30 mg XL to be given twice daily. She reports that she apparently has had some significant issue with taking labetalol in the past and feels that she has significant chest pressure and pain when that is given. Obstetrical history: Current approximately 8+ weeks, confirmed viability on ultrasound in the emergency room last night. Also confirmed subchorionic hemorrhage. Gynecologic history: Noncontributory. Review of Systems Review of systems is confined to history of present illness. Past Medical History Past Medical History: Diabetes Mellitus, Hypertension, Renal Disease, Thyroid Disorder Additional Past Medical History / Comment(s): CKD STAGE 4 History of Any Multi-Drug Resistant Organisms: MRSA Year Discovered:: 03/26/18 MDRO Source:: WOUND Past Surgical History: Section, Tonsillectomy Additional Past Surgical History / Comment(s): tubal injection for infertility (current admission) laser eye b/l Past Anesthesia/Blood Transfusion Reactions: No Reported Reaction Past Psychological History: Anxiety, Depression Smoking Status: Former smoker Past Alcohol Use History: Rare Past Drug Use History: None Reported - Past Family History Mother History Unknown: Yes Medications and Allergies Home Medications Medication Instructions Recorded Confirmed Type Ferrous Sulfate [Feosol] 650 mg PO DAILY 01/23/23 05/21/24 History Folic Acid 1 mg PO DAILY 01/23/23 05/21/24 History Insulin Glargine,Hum.rec.anlog 40 units SQ QAM 01/23/23 05/21/24 History [Lantus Solostar Pen] Insulin Lispro [humaLOG Kwikpen] 5 units SQ AC-TID 10/24/23 05/21/24 History Ergocalciferol [Vitamin D2 (1250 1,250 mcg PO MO 05/21/24 05/21/24 History Mcg = 86893 Iu)] Insulin Lispro [humaLOG Kwikpen] See Protocol SQ AC-TID 05/21/24 05/21/24 History Levothyroxine Sodium [Synthroid] 112 mcg PO MOTUWETHFR 05/21/24 05/21/24 History Levothyroxine Sodium [Synthroid] 224 mcg PO SUSA 05/21/24 05/21/24 History NIFEdipine [Adalat CC] 30 mg PO BID 05/21/24 05/21/24 History Ondansetron Odt [Zofran Odt] 4 mg PO Q6H PRN 05/21/24 05/21/24 History hydrALAZINE HCL [Apresoline] 50 mg PO TID-W/MEALS 05/21/24 05/21/24 History Allergies Allergy/AdvReac Type Severity Reaction Status Date / Time No Known Allergies Allergy Verified 05/21/24 15:14 Exam Vital Signs Temp Pulse Pulse Resp BP BP Pulse Ox 05/22/24 08:00 98 18 197/105 98 05/22/24 04:00 98.3 F 101 H 16 186/82 95 05/21/24 23:14 99.1 F 98 16 187/85 95 05/21/24 22:38 98.4 F 108 H 16 175/85 95 05/21/24 21:15 99.3 F 93 16 169/82 05/21/24 21:00 115 H 22 181/89 05/21/24 20:45 99.1 F 96 19 188/100 05/21/24 20:30 106 H 20 149/96 05/21/24 20:15 92 20 181/92 05/21/24 20:00 93 20 180/64 05/21/24 19:45 121 H 20 174/92 05/21/24 19:30 93 15 184/85 05/21/24 19:15 113 H 13 176/96 05/21/24 19:00 106 H 17 195/89 05/21/24 18:45 107 H 10 L 199/111 05/21/24 18:30 107 H 15 05/21/24 18:00 197/94 05/21/24 17:45 190/88 05/21/24 17:30 177/86 05/21/24 17:15 106 H 18 177/86 96 05/21/24 17:00 193/93 97 05/21/24 16:55 107 H 18 193/93 96 05/21/24 16:45 164/79 05/21/24 16:15 190/98 05/21/24 16:00 190/97 05/21/24 15:30 195/104 05/21/24 14:15 194/107 05/21/24 14:00 114 H 19 191/99 05/21/24 13:45 112 H 13 122/102 05/21/24 13:30 101 H 16 129/107 Intake and Output 05/21/24 05/22/24 05/22/24 22:59 06:59 14:59 Other: Voiding Method Toilet Toilet # Voids 1 1 Weight 97.522 kg 97 kg In general, this is a well-developed, mildly obese white female in no apparent distress though she began to retch at the end of her visit. Her abdomen is nondistended, soft, nontender, and without any masses. Her extremities are without any cyanosis, clubbing, or significant edema and are nontender to palpation bilaterally. Pelvic examination is deferred Results Result Diagrams: 05/22/24 06:18 05/22/24 06:18 Abnormal Lab Results - Last 24 Hours (Table) 05/21/24 05/21/24 05/22/24 Range/Units 16:54 22:06 06:18 WBC 11.2 H (3.8-10.6) k/uL RBC 3.18 L (3.80-5.40) m/uL Hgb 10.0 L (11.4-16.0) gm/dL Hct 30.2 L (34.0-46.0) % Neutrophils # 9.6 H (1.3-7.7) k/uL Lymphocytes # 0.9 L (1.0-4.8) k/uL Sodium (137-145) mmol/L BUN (7-17) mg/dL Creatinine (0.52-1.04) mg/dL Glucose (74-99) mg/dL POC Glucose (mg/dL) 172 H 205 H (70-110) mg/dL Total Protein (6.3-8.2) g/dL Albumin (3.5-5.0) g/dL 05/22/24 05/22/24 05/22/24 Range/Units 06:18 06:21 11:32 WBC (3.8-10.6) k/uL RBC (3.80-5.40) m/uL Hgb (11.4-16.0) gm/dL Hct (34.0-46.0) % Neutrophils # (1.3-7.7) k/uL Lymphocytes # (1.0-4.8) k/uL Sodium 134 L (137-145) mmol/L BUN 23 H (7-17) mg/dL Creatinine 2.01 H (0.52-1.04) mg/dL Glucose 155 H (74-99) mg/dL POC Glucose (mg/dL) 158 H 151 H (70-110) mg/dL Total Protein 6.1 L (6.3-8.2) g/dL Albumin 3.4 L (3.5-5.0) g/dL Assessment and Plan (1) Chronic kidney disease Current Visit: Yes Status: Acute Code(s): N18.9 - CHRONIC KIDNEY DISEASE, UNSPECIFIED SNOMED Code(s): 511643586 (2) Intractable nausea and vomiting Current Visit: Yes Status: Acute Code(s): R11.2 - NAUSEA WITH VOMITING, UNSPECIFIED SNOMED Code(s): 983345701 (3) Current Visit: Yes Status: Acute Code(s): Z34.90 - ENCNTR FOR SUPRVSN OF NORMAL , UNSP, UNSP TRIMESTER SNOMED Code(s): 25896137 (4) Uncontrolled hypertension Current Visit: Yes Status: Acute Code(s): I10 - ESSENTIAL (PRIMARY) HYPERTENSION SNOMED Code(s): 40700561 Plan: As regards , she has a known subchorionic hemorrhage and will perhaps continue to have irregular spotting and bleeding until this either resolves or progresses depending on her other conditions. There is no medical intervention to prevent this from happening and I would recommend that she have no further ultrasounds while in the hospital unless she begins to have significantly heavy vaginal bleeding as no intervention will change the outcome. It is unclear as to whether or not her chronic medical conditions have led to nausea and vomiting or whether nausea and vomiting has led to an exacerbation of her chronic medical conditions. It is imperative that her blood pressure be brought under control as this certainly tremendously increases the risk for increasing subchorionic hemorrhage and potential miscarriage. It would be ideal if medications that are known to be safe in were selected but control of her blood pressure is of paramount importance as a stroke or cardiac event is far more catastrophic. There is certainly a possibility that the origin of her hypertension is renal in nature and we will leave that to the nephrology team for further input. Agree with proton pump inhibitors as well as any antiemetics that may be of benefit. Aggressive IV hydration may also be of use as long as her kidneys are able to manage the fluid load. From an obstetrical standpoint, we will follow at a distance and be available for any further questions but would leave this in the capable hands of the medical team. Cardiology consultation could be considered if antihypertensive treatment cannot be found to adequately manage the patient's current condition.
--- NOTE | 2024-05-22 14:05 | P.NPCON ---
History of Present Illness - Reason for Consult Consult date: 05/22/24 - Chief Complaint Nausea and Vomiting - History of Present Illness 33 year old female presents to emergency department with chief complaint of nausea and vomiting x 2 days. States that she has a history of hypertension and CKD, has not been able to keep her blood pressure medications down, unsure what her blood sugar has been running. She also reports spotting with vomiting episodes. Denies fever, syncope, and shortness of breath. She is currently 9 weeks . On nifedipine at home and has asthma problems when taking labetalol in past. Alert oriented x 3 Examination of the heart S1 and S2 Examination of the lungs bilateral breath sounds are heard Abdomen is soft nontender Examination of lower extremities shows no significant edema. 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 grossly intact Review of Systems Constitutional: Reports as per HPI Past Medical History Past Medical History: Diabetes Mellitus, Hypertension, Renal Disease, Thyroid Disorder Additional Past Medical History / Comment(s): CKD STAGE 4 History of Any Multi-Drug Resistant Organisms: MRSA Date of last positivie culture/infection: 03/26/18 MDRO Source:: WOUND Past Surgical History: Section, Tonsillectomy Additional Past Surgical History / Comment(s): tubal injection for infertility (current admission) laser eye b/l Past Anesthesia/Blood Transfusion Reactions: No Reported Reaction Past Psychological History: Anxiety, Depression Smoking Status: Former smoker Past Alcohol Use History: Rare Past Drug Use History: None Reported - Past Family History Mother History Unknown: Yes Medications and Allergies Home Medications Medication Instructions Recorded Confirmed Type Ferrous Sulfate [Feosol] 650 mg PO DAILY 01/23/23 05/21/24 History Folic Acid 1 mg PO DAILY 01/23/23 05/21/24 History Insulin Glargine,Hum.rec.anlog 40 units SQ QAM 01/23/23 05/21/24 History [Lantus Solostar Pen] Insulin Lispro [humaLOG Kwikpen] 5 units SQ AC-TID 10/24/23 05/21/24 History Ergocalciferol [Vitamin D2 (1250 1,250 mcg PO MO 05/21/24 05/21/24 History Mcg = 30091 Iu)] Insulin Lispro [humaLOG Kwikpen] See Protocol SQ AC-TID 05/21/24 05/21/24 History Levothyroxine Sodium [Synthroid] 112 mcg PO MOTUWETHFR 05/21/24 05/21/24 History Levothyroxine Sodium [Synthroid] 224 mcg PO SUSA 05/21/24 05/21/24 History NIFEdipine [Adalat CC] 30 mg PO BID 05/21/24 05/21/24 History Ondansetron Odt [Zofran Odt] 4 mg PO Q6H PRN 05/21/24 05/21/24 History hydrALAZINE HCL [Apresoline] 50 mg PO TID-W/MEALS 05/21/24 05/21/24 History Allergies Allergy/AdvReac Type Severity Reaction Status Date / Time No Known Allergies Allergy Verified 05/21/24 15:14 Physical Exam Vitals: Vital Signs Temp Pulse Pulse Resp BP BP Pulse Ox 05/22/24 04:00 98.3 F 101 H 16 186/82 95 05/21/24 23:14 99.1 F 98 16 187/85 95 05/21/24 22:38 98.4 F 108 H 16 175/85 95 05/21/24 21:15 99.3 F 93 16 169/82 05/21/24 21:00 115 H 22 181/89 05/21/24 20:45 99.1 F 96 19 188/100 05/21/24 20:30 106 H 20 149/96 05/21/24 20:15 92 20 181/92 05/21/24 20:00 93 20 180/64 05/21/24 19:45 121 H 20 174/92 05/21/24 19:30 93 15 184/85 05/21/24 19:15 113 H 13 176/96 05/21/24 19:00 106 H 17 195/89 05/21/24 18:45 107 H 10 L 199/111 05/21/24 18:30 107 H 15 05/21/24 18:00 197/94 05/21/24 17:45 190/88 05/21/24 17:30 177/86 05/21/24 17:15 106 H 18 177/86 96 05/21/24 17:00 193/93 97 05/21/24 16:55 107 H 18 193/93 96 05/21/24 16:45 164/79 05/21/24 16:15 190/98 05/21/24 16:00 190/97 05/21/24 15:30 195/104 05/21/24 14:15 194/107 05/21/24 14:00 114 H 19 191/99 05/21/24 13:45 112 H 13 122/102 05/21/24 13:30 101 H 16 129/107 05/21/24 13:15 125 H 19 173/97 05/21/24 13:00 105 H 11 L 163/99 05/21/24 12:45 108 H 37 H 145/78 05/21/24 12:42 99.3 F 05/21/24 12:30 98 12 163/121 05/21/24 12:15 124 H 22 156/82 05/21/24 12:00 105 H 21 165/76 05/21/24 11:45 86 05/21/24 11:44 99.1 F 25 H 178/91 Intake and Output 05/21/24 05/22/24 05/22/24 22:59 06:59 14:59 Other: Voiding Method Toilet # Voids 1 1 Weight 97.522 kg 97 kg Results - Lab Results Most recent lab results Calcium 8.8 mg/dL (8.4-10.2) 05/22/24 06:18 Magnesium 1.6 mg/dL (1.6-2.3) 05/21/24 11:03 05/22/24 06:18 05/22/24 06:18 Assessment and Plan Assessment: 1. Non-oliguric KAYLIN likely Prerenal from vomiting. Presented creatinine 2.0. Ua shows gnular cast and proteinuria. 2. Hyperemesis of . Not uremia. 3. 1st trimester 4. HTN with CKD - uncontrolled due to vomiting and unable to tolerated medi cations 5. CKD Stage 3 baseline creatinine 1.6 mg/dL. Diabetic nephropathy Plan: Continue IVF Antiemetics Not pre-eclampsia, too early in and has chronic proteinuria Continue Nifedipine 30 mg BID, if not improving increase to 60 mg BID Supportive care, daily labs
[2024-05-22] MEDS: hydrALAZINE HCL 20 MG/ML 1 ML VIAL IVP PRN (16:33)
[2024-05-22 16:54] LABS: Glucose,Whole Blood 100 mg/dL (70-110)
[2024-05-22 20:36] LABS: Glucose,Whole Blood 81 mg/dL (70-110)
[2024-05-22] MEDS ORDERED: FAMOTIDINE 20 MG TAB PO SCH (21:00)
--- NOTE | 2024-05-22 23:10 | PN ---
PROGRESS NOTE DATE OF SERVICE: 05/22/2024 SUBJECTIVE: This is a 33-year-old woman, who is 8 weeks , was admitted with intractable nausea and vomiting. The patient is being treated symptomatically. The patient also had some bleeding and spotting. The patient does have a known subchorionic hemorrhage. No chest pain. No palpitation. PAST MEDICAL HISTORY: Reviewed. REVIEW OF SYSTEMS: A 14-point review of systems is negative except as mentioned earlier. CURRENT MEDICATIONS: Reviewed. PHYSICAL EXAMINATION: VITAL SIGNS: Pulse is 98, blood pressure 197/105, respirations 18. CHEST: A few scattered rhonchi and crackles. ABDOMEN: Soft, mild diffuse discomfort. No guarding. No rigidity. LABORATORY DATA: Noted. ASSESSMENT: 1. Accelerated uncontrolled hypertension. 2. Intractable nausea and vomiting, possible acute gastritis. 3. Acute on chronic kidney disease. 4. with subchorionic hemorrhage, rather chronic. 5. Hyponatremia. 6. Eight weeks . 7. Elevated WBC. 8. Hypertension. 9. History of Methicillin-resistant Staphylococcus aureus. 10.Multiple medical issues. RECOMMENDATIONS: Recommend to continue current management and continue symptomatic treatment. The patient is on IV hydralazine. I would recommend cardiology consultation to fine-tune the blood pressure management. IV fluids. Creatinine is 2.01 today, rather stable. We will continue to monitor. Add proton pump inhibitors because the patient continues to be symptomatic on H2 blockers. Guarded prognosis. Further recommendations to follow. Repeat labs will be ordered. MMODL / IJN: [id number] /
[2024-05-23 06:26] LABS: Glucose,Whole Blood 137 mg/dL (70-110)
[2024-05-23] MEDS ORDERED: FAMOTIDINE 20 MG TAB PO SCH (09:00)
[2024-05-23] MEDS: ALBUTEROL NEBULIZED 2.5 MG/3 ML INHALATION SCH (09:00)
[2024-05-23 09:21] LABS: Basophils % (A) 0 %; Eosinophils % (A) 0 %; HCT 28.7 % (34.0-46.0); HGB 9.3 gm/dL (11.4-16.0); Lymphocytes # (A) 0.9 k/uL (1.0-4.8); Lymphocytes % (A) 9 %; MCH 31.2 pg (25.0-35.0); MCHC 32.6 g/dL (31.0-37.0); MCV 95.8 fL (80.0-100.0); Mean Platelet Volume 7.6; Monocytes # (A) 0.4 k/uL (0-1.0); Monocytes % (A) 3 %; Neutrophils # (A) 9.4 k/uL (1.3-7.7); Neutrophils % (A) 87 %; Platelet Count 283 k/uL (150-450); RDW 12.8 % (11.5-15.5); WBC 10.9 k/uL (3.8-10.6)
[2024-05-23 09:35] LABS: ALT 17 U/L (4-34); AST 32 U/L (14-36); African American GFR (CKD) 41 (>60 ml/min/1.73 sqM); Albumin 3.1 g/dL (3.5-5.0); Alkaline Phosphatase 56 U/L (38-126); Anion Gap 7 mmol/L; Blood Urea Nitrogen 21 mg/dL (7-17); Calcium 8.5 mg/dL (8.4-10.2); Carbon Dioxide 21 mmol/L (22-30); Chloride 108 mmol/L (98-107); Glucose 129 mg/dL (74-99); Non-African American GFR(CKD) 35 (>60 ml/min/1.73 sqM); Potassium 3.7 mmol/L (3.5-5.1); Sodium 136 mmol/L (137-145); Total Bilirubin 0.4 mg/dL (0.2-1.3); Total Protein 5.6 g/dL (6.3-8.2)
[2024-05-23] MEDS: hydrALAZINE HCL 20 MG/ML 1 ML VIAL IVP PRN (09:36)
[2024-05-23] MEDS: ACETAMINOPHEN IV (For NPO) 1,000 MG in EMPTY BAG 1 BAG IVPB PRN (09:38)
[2024-05-23 11:12] VITALS: BP 187/96; PULSE 108; TEMP 98.1
[2024-05-23 11:23] LABS: Glucose,Whole Blood 174 mg/dL (70-110)
--- NOTE | 2024-05-23 11:52 | P.PN ---
Subjective Progress Note Date: 05/23/24 Patient seen in follow-up for KAYLIN and CKD. Still not feeling well. Vomiting has improved some but still with headache. Vital signs are stable. General: No acute distress. HEENT: Head exam is unremarkable. LUNGS: No audible rhonchi or wheezes. HEART: Rate and Rhythm are regular. ABDOMEN: Nontender. EXTREMITITES: No edema. Objective - Vital Signs Vital signs: Vital Signs Temp 97.7 F 05/23/24 04:00 Pulse 103 H 05/23/24 04:00 Resp 18 05/23/24 04:00 BP 171/97 05/23/24 04:00 Pulse Ox 96 05/23/24 04:00 FiO2 Intake & Output 05/22/24 05/23/24 05/23/24 18:59 06:59 18:59 Weight 96.6 kg Other: Voiding Method Toilet Toilet # Voids 1 - Labs CBC & Chem 7: 05/23/24 08:28 05/23/24 08:28 Labs: Abnormal Lab Results - Last 24 Hours (Table) 05/22/24 05/23/24 05/23/24 Range/Units 11:32 06:08 08:28 WBC 10.9 H (3.8-10.6) k/uL RBC 3.00 L (3.80-5.40) m/uL Hgb 9.3 L (11.4-16.0) gm/dL Hct 28.7 L (34.0-46.0) % Neutrophils # 9.4 H (1.3-7.7) k/uL Lymphocytes # 0.9 L (1.0-4.8) k/uL Sodium (137-145) mmol/L Chloride (98-107) mmol/L Carbon Dioxide (22-30) mmol/L BUN (7-17) mg/dL Creatinine (0.52-1.04) mg/dL Glucose (74-99) mg/dL POC Glucose (mg/dL) 151 H 137 H (70-110) mg/dL Total Protein (6.3-8.2) g/dL Albumin (3.5-5.0) g/dL 05/23/24 Range/Units 08:28 WBC (3.8-10.6) k/uL RBC (3.80-5.40) m/uL Hgb (11.4-16.0) gm/dL Hct (34.0-46.0) % Neutrophils # (1.3-7.7) k/uL Lymphocytes # (1.0-4.8) k/uL Sodium 136 L (137-145) mmol/L Chloride 108 H (98-107) mmol/L Carbon Dioxide 21 L (22-30) mmol/L BUN 21 H (7-17) mg/dL Creatinine 1.86 H (0.52-1.04) mg/dL Glucose 129 H (74-99) mg/dL POC Glucose (mg/dL) (70-110) mg/dL Total Protein 5.6 L (6.3-8.2) g/dL Albumin 3.1 L (3.5-5.0) g/dL Assessment and Plan Assessment: 1. Non-oliguric KAYLIN likely Prerenal from vomiting. Presented creatinine 2.0. Ua shows gnular cast and proteinuria. 2. Hyperemesis of . Not uremia. 3. 1st trimester 4. HTN with CKD - uncontrolled due to vomiting and unable to tolerated medicat ions 5. CKD Stage 3 baseline creatinine 1.6 mg/dL. Diabetic nephropathy Plan: Continue IVF Antiemetics Not pre-eclampsia, too early in and has chronic proteinuria Increase Nifedipine 60 mg BID IV hydralazine if unable to tolerate PO, patient has reactions to Labetalol in past Unfortunately no other options for IV BP control given her .
--- NOTE | 2024-05-23 12:26 | P.CRDCN ---
History of Present Illness Consult date: 05/23/24 Consult reason: hypertension History of present illness: The patient is a 33-year-old female who presented to the hospital with intractable nausea and vomiting. She has a history of diabetes, hypertension, and chronic kidney disease. She is currently 8 weeks and presented to the emergency room when she was unable to keep her antihypertensives down for over 24 hours. She presented with elevated blood pressure readings of 163/121. Cardiology has been consulted for antihypertensive management. DIAGNOSTICS: Chest x-ray shows no acute cardiopulmonary process Lab data: WBC 10.9, hemoglobin 9.3, hematocrit 28.7, platelet 283, sodium 136, potassium 3.7, BUN 21, creatinine 1.86, AST 32, ALT 17, troponin 0.01, 0.02 REVIEW OF SYSTEMS: No fever or chills. No cough or expectoration. No diaphoresis. Positive for nausea and vomiting. Positive for headache. PHYSICAL EXAMINATION: This is a 33-year-old female in no apparent distress at the time of my examination. HEENT: Head is atraumatic, normocephalic. Pupils are equal, round. Sclerae anicteric. Conjunctivae are clear. Mucous membranes of the mouth are moist. Neck is supple. There is no jugular venous distention. No carotid bruit is heard. CHEST EXAMINATION: Lungs are clear to auscultation. No chest wall tenderness is noted on palpation or with deep breathing. HEART EXAMINATION: Heart regular rate and rhythm. S1, S2 heard. No murmurs, gallops or rub. ABDOMEN: Soft, nontender. Bowel sounds are heard. No organomegaly noted. EXTREMITIES: 2+ peripheral pulses with no evidence of peripheral edema and no calf tenderness noted. NEUROLOGIC EXAMINATION: Patient is awake, alert and oriented x3. FINAL ASSESSMENT AND PLAN: Intractable nausea and vomiting, unable to tolerate oral medications Hypertensive crisis First trimester with subchorionic hemorrhage PLAN: Increase IV hydralazine to 20 mg every 4 hours Due to the patient's complexity of care, recommend transfer to tertiary care center with advanced medicine I am dictating on behalf of Dr Mayank Jeong's history/physical and assessment/plan. Past Medical History Past Medical History: Diabetes Mellitus, Hypertension, Renal Disease, Thyroid Disorder Additional Past Medical History / Comment(s): CKD STAGE 4 History of Any Multi-Drug Resistant Organisms: MRSA Date of last positivie culture/infection: 03/26/18 MDRO Source:: WOUND Past Surgical History: Section, Tonsillectomy Additional Past Surgical History / Comment(s): tubal injection for infertility (current admission) laser eye b/l Past Anesthesia/Blood Transfusion Reactions: No Reported Reaction Past Psychological History: Anxiety, Depression Smoking Status: Former smoker - Past Family History Mother History Unknown: Yes Medications and Allergies Home Medications Medication Instructions Recorded Confirmed Type Ferrous Sulfate [Feosol] 650 mg PO DAILY 01/23/23 05/21/24 History Folic Acid 1 mg PO DAILY 01/23/23 05/21/24 History Insulin Glargine,Hum.rec.anlog 40 units SQ QAM 01/23/23 05/21/24 History [Lantus Solostar Pen] Insulin Lispro [humaLOG Kwikpen] 5 units SQ AC-TID 10/24/23 05/21/24 History Ergocalciferol [Vitamin D2 (1250 1,250 mcg PO MO 05/21/24 05/21/24 History Mcg = 42577 Iu)] Insulin Lispro [humaLOG Kwikpen] See Protocol SQ AC-TID 05/21/24 05/21/24 History Levothyroxine Sodium [Synthroid] 112 mcg PO MOTUWETHFR 05/21/24 05/21/24 History Levothyroxine Sodium [Synthroid] 224 mcg PO SUSA 05/21/24 05/21/24 History NIFEdipine [Adalat CC] 30 mg PO BID 05/21/24 05/21/24 History Ondansetron Odt [Zofran Odt] 4 mg PO Q6H PRN 05/21/24 05/21/24 History hydrALAZINE HCL [Apresoline] 50 mg PO TID-W/MEALS 05/21/24 05/21/24 History Allergies Allergy/AdvReac Type Severity Reaction Status Date / Time No Known Allergies Allergy Verified 05/21/24 15:14 Physical Exam Vitals: Vital Signs Temp Pulse Resp BP Pulse Ox 05/23/24 08:00 98.1 F 108 H 18 187/96 98 05/23/24 04:00 97.7 F 103 H 18 171/97 96 05/23/24 01:26 159/83 05/22/24 23:42 98.1 F 99 18 176/90 96 05/22/24 21:14 174/87 05/22/24 19:35 98.5 F 101 H 18 173/73 96 05/22/24 16:00 97.8 F 106 H 18 176/89 98 05/22/24 14:00 80 18 05/22/24 13:30 192/81 05/22/24 12:30 80 18 187/85 98 Intake and Output 05/22/24 05/23/24 05/23/24 22:59 06:59 14:59 Other: Voiding Method Toilet Toilet Toilet # Voids 1 1 Weight 96.6 kg Results 05/23/24 08:28 05/23/24 08:28 Cardiac Enzymes 05/22/24 05/23/24 05/23/24 Range/Units 23:04 01:43 08:28 AST 32 (14-36) U/L Troponin I 0.017 0.024 (0.000-0.034) ng/mL CBC 05/23/24 Range/Units 08:28 WBC 10.9 H (3.8-10.6) k/uL RBC 3.00 L (3.80-5.40) m/uL Hgb 9.3 L (11.4-16.0) gm/dL Hct 28.7 L (34.0-46.0) % Plt Count 283 (150-450) k/uL Comprehensive Metabolic Panel 05/23/24 Range/Units 08:28 Sodium 136 L (137-145) mmol/L Potassium 3.7 (3.5-5.1) mmol/L Chloride 108 H (98-107) mmol/L Carbon Dioxide 21 L (22-30) mmol/L BUN 21 H (7-17) mg/dL Creatinine 1.86 H (0.52-1.04) mg/dL Glucose 129 H (74-99) mg/dL Calcium 8.5 (8.4-10.2) mg/dL AST 32 (14-36) U/L ALT 17 (4-34) U/L Alkaline Phosphatase 56 (38-126) U/L Total Protein 5.6 L (6.3-8.2) g/dL Albumin 3.1 L (3.5-5.0) g/dL Current Medications Generic Name Dose Route Start Last Admin Trade Name Freq PRN Reason Stop Dose Admin Albuterol Sulfate 1.25 mg 05/23/24 08:00 05/23/24 09:00 Albuterol Nebulized 2.5 Mg/3 Ml INHALATION Not Given RT-QID CALEB Dextrose/Water 25 ml 05/21/24 17:06 Dextrose 50% Syringe 50 Ml IVP PER PROTOCOL PRN Hypoglycemia Protocol Dextrose/Water 50 ml 05/21/24 17:06 Dextrose 50% Syringe 50 Ml IVP PER PROTOCOL PRN Hypoglycemia Protocol Ferrous Sulfate 650 mg 05/22/24 09:00 05/22/24 09:45 Ferrous Sulfate 325 Mg Tab PO 650 mg DAILY CALEB Administration Folic Acid 1 mg 05/22/24 09:00 05/22/24 09:45 Folic Acid 1 Mg Tab PO 1 mg DAILY CALEB Administration Hydralazine HCl 50 mg 05/21/24 17:30 05/23/24 05:29 Hydralazine Hcl 50 Mg Tab PO Not Given TID-W/MEALS CALEB Hydralazine HCl 20 mg 05/23/24 09:00 05/23/24 09:36 Hydralazine Hcl 20 Mg/Ml 1 Ml Vial IVP 20 mg Q4HR PRN Administration Blood Pressure - High Sodium Chloride 1,000 mls @ 75 mls/hr 05/21/24 13:45 05/23/24 09:43 Saline 0.9% IV 75 mls/hr .[id number] CALEB Administration Acetaminophen 1,000 mg/ IV 100 mls @ 400 mls/hr 05/23/24 09:20 05/23/24 09:38 Solution IVPB 05/24/24 06:01 400 mls/hr Q6HR PRN Administration Mild to Moderate Pain (1 - 6) Insulin Aspart 5 unit 05/21/24 17:30 05/23/24 06:27 Insulin Aspart (Novolog) 100 Unit/Ml Vial SQ Not Given AC-TID [facility] Insulin Aspart 0 unit 05/21/24 17:30 05/23/24 06:27 Insulin Aspart (Novolog) 100 Unit/Ml Vial SQ Not Given AC-TID [facility] Protocol Insulin Detemir 40 unit 05/22/24 07:00 05/23/24 09:40 Insulin Detemir (Levemir) 100 Unit/Ml Syr SQ 40 unit QAM@0700 CALEB Administration Labetalol HCl 100 mg 05/22/24 09:00 05/23/24 08:56 Labetalol 100 Mg Tab PO Not Given BID [facility] Levothyroxine Sodium 112 mcg 05/21/24 17:00 05/21/24 16:39 Levothyroxine 112 Mcg Tab PO Not Given [id number] [facility] Levothyroxine Sodium 224 mcg 05/22/24 06:30 05/23/24 05:16 Levothyroxine 112 Mcg Tab PO Not Given [id number]@0630 [facility] Metoclopramide HCl 10 mg 05/21/24 13:37 05/23/24 04:53 Metoclopramide 5 Mg/Ml 2 Ml Vial IVP 10 mg Q6HR PRN Administration nausea Morphine Sulfate 2 mg 05/22/24 01:31 Morphine Sulfate 2 Mg/Ml Syringe IVP Q6HR PRN Pain/Discomfort Naloxone HCl 0.2 mg 05/21/24 13:36 Naloxone 0.4 Mg/Ml 1 Ml Vial IV Q2M PRN Opioid Reversal Nifedipine 60 mg 05/23/24 11:00 Nifedipine Xl 60 Mg Tab.Er.24 PO Q12HR [facility] Ondansetron HCl 4 mg 05/21/24 14:57 05/23/24 09:36 Ondansetron 4 Mg/2 Ml Vial IVP 4 mg Q6HR PRN Administration Nausea And Vomiting Pantoprazole Sodium 40 mg 05/22/24 12:00 05/23/24 09:36 Pantoprazole 40 Mg/10 Ml Vial IVP 40 mg BID [facility] Administration Intake and Output 05/22/24 05/23/24 05/23/24 22:59 06:59 14:59 Other: Voiding Method Toilet Toilet Toilet # Voids 1 1 Weight 96.6 kg 05/23/24 08:28 05/23/24 08:28
--- NOTE | 2024-05-23 12:52 | P.DS ---
Providers Date of admission: 05/21/24 13:28 Attending physician: Kenneth Mercado MD Consults: 05/21/24 13:36 Consult Physician Urgent Consulting Provider: Odessa Meraz Consult Reason/Comments: Do you want consulting provider notified?: Yes Consult Physician Urgent Consulting Provider: Jorge Weiss Consult Reason/Comments: Chronic renal failure Do you want consulting provider notified?: Yes 05/22/24 13:46 Consult Physician Urgent Consulting Provider: Mayank Jeong Consult Reason/Comments: , N/V, hypertention Do you want consulting provider notified?: Yes 05/22/24 22:57 Consult Physician Urgent Consulting Provider: Taras Mccallum Consult Reason/Comments: chest pain HTN Do you want consulting provider notified?: Yes, Notify in am Primary care physician: [facility] Course: final diagnosis Accelerated uncontrolled hypertension Intractable nausea vomiting possible acute gastritis Acute on chronic kidney disease with a subchorionic hemorrhage chronic hyponatremia hypovolemic 8 weeks Elevated WBC Hypertension History of MRSA Multiple medical issues Discharge disposition This patient will be transferred to intensive maternal- monitoring per cardiology and EP TECH recommendations. History of present illness This 39-year-old woman with a past medical history multiple medical problems as mentioned earlier was admitted with accelerated uncontrolled hypertension. Blood pressures in early elevated up to 190/120. Patient was given multiple medications. Despite high-dose intravenous hydralazine blood pressure remains elevated. Patient is complaining of a headache also. Patient is a valid with cardiology and EP TECH recommend a referral to maternal- monitoring at this time. As mentioned earlier prognosis remains extremely guarded because of the multiple [facility]ass medical issues. I would also recommend follow-up with Dr. Rosalba St and EP TECH after discharge from the [facility].please note that patient also had a chronic subchorionic hemorrhage which is being followed in the outpatient setting by EP TECH. please suffer to the MAR for the details of the current medications. Patient Condition at Discharge: Fair Plan - Discharge Summary Discharge Rx Participant: Yes New Discharge Prescriptions: No Action Ferrous Sulfate [Feosol] 650 mg PO DAILY Insulin Lispro [humaLOG Kwikpen] 5 units SQ AC-TID Levothyroxine Sodium [Synthroid] 112 mcg PO MOTUWETHFR Insulin Lispro [humaLOG Kwikpen] See Protocol SQ AC-TID Insulin Glargine,Hum.rec.anlog [Lantus Solostar Pen] 40 units SQ QAM Folic Acid 1 mg PO DAILY NIFEdipine [Adalat CC] 30 mg PO BID Ergocalciferol [Vitamin D2 (1250 Mcg = 39134 Iu)] 1,250 mcg PO MO Ondansetron Odt [Zofran Odt] 4 mg PO Q6H PRN PRN Reason: Nausea hydrALAZINE HCL [Apresoline] 50 mg PO TID-W/MEALS Levothyroxine Sodium [Synthroid] 224 mcg PO SUSA Discharge Medication List Ferrous Sulfate [Feosol] 650 mg PO DAILY 01/23/23 [History] Folic Acid 1 mg PO DAILY 01/23/23 [History] Insulin Glargine,Hum.rec.anlog [Lantus Solostar Pen] 40 units SQ QAM 01/23/23 [History] Insulin Lispro [humaLOG Kwikpen] 5 units SQ AC-TID 10/24/23 [History] Ergocalciferol [Vitamin D2 (1250 Mcg = 13673 Iu)] 1,250 mcg PO MO 05/21/24 [History] Insulin Lispro [humaLOG Kwikpen] See Protocol SQ AC-TID 05/21/24 [History] Levothyroxine Sodium [Synthroid] 112 mcg PO MOTUWETHFR 05/21/24 [History] Levothyroxine Sodium [Synthroid] 224 mcg PO SUSA 05/21/24 [History] NIFEdipine [Adalat CC] 30 mg PO BID 05/21/24 [History] Ondansetron Odt [Zofran Odt] 4 mg PO Q6H PRN 05/21/24 [History] hydrALAZINE HCL [Apresoline] 50 mg PO TID-W/MEALS 05/21/24 [History] Follow up Appointment(s)/Referral(s): Rani Fuchs MD [Primary Care Provider] - 1-2 days
[2024-05-23] MEDS: ALBUTEROL NEBULIZED 1.25 MG/3 ML INHALATION SCH (13:22)
== END 2024-05-23 14:24 | disposition short-term general hospital (02) | DRG 832 ==
LOC: EC 10:07 → 6NMEDSUR 13:28 → 3SCARD 17:35 → OBSVTOIN 05-22 13:43 → UNDODISOB 05-23 14:24
PROVIDERS: ADMIT Internal Medicine; ATTEND Internal Medicine
DX: O10.011 Pre-existing essential hypertension complicating pregnancy, first trimester (principal); I16.9 Hypertensive crisis, unspecified; N17.9 Acute kidney failure, unspecified; N18.4 Chronic kidney disease, stage 4 (severe); O24.111 Pre-existing type 2 diabetes mellitus, in pregnancy, first trimester; O21.1 Hyperemesis gravidarum with metabolic disturbance; I12.9 Hypertensive chronic kidney disease with stage 1 through stage 4 chronic kidney disease, or unspecified chronic kidney disease; E11.65 Type 2 diabetes mellitus with hyperglycemia; E11.22 Type 2 diabetes mellitus with diabetic chronic kidney disease; E11.21 Type 2 diabetes mellitus with diabetic nephropathy; O20.8 Other hemorrhage in early pregnancy; O99.281 Endocrine, nutritional and metabolic diseases complicating pregnancy, first trimester; D72.829 Elevated white blood cell count, unspecified; O99.511 Diseases of the respiratory system complicating pregnancy, first trimester; J45.909 Unspecified asthma, uncomplicated; Z79.4 Long term (current) use of insulin; Z3A.08 8 weeks gestation of pregnancy; Z79.890 Hormone replacement therapy; Z79.899 Other long term (current) drug therapy; Z87.891 Personal history of nicotine dependence; Z11.52 Encounter for screening for COVID-19; Z11.59 Encounter for screening for other viral diseases; Z86.14 Personal history of Methicillin resistant Staphylococcus aureus infection; Z28.310 Unvaccinated for COVID-19
CPT/HCPCS: 36415; 76801; 80053; 81001; 82009; 82803; 83605; 83615; 83735; 84484; 84550; 85025; 87636; 93005; 96361; 96365; 96366; 96375; 96376; 99285

== ENCOUNTER 2024-07-13 22:05 | Emergency (ER) | payer BC ==
[2024-07-13 22:11] VITALS: TEMP 98.5
--- NOTE | 2024-07-13 22:26 | ED ---
General Adult HPI - General Chief complaint: OB/Uterine Contractions Stated complaint: 16 weeks preg, poss blooding-sent by Dr Time Seen by Provider: 07/13/24 22:12 Source: patient, RN notes reviewed, old records reviewed Mode of arrival: ambulatory Limitations: no limitations - History of Present Illness Initial comments: 33-year-old female with 1 previous stillbirth presenting for possible rupture membranes. Patient is approximately 6 weeks . She states that on several occasions today she has had a wet sensation and was concerned this could be rupture membranes versus urinary incontinence. She contacted her cooler conveyor loader who recommended she come to the emergency department for testing. Mild lower abdominal cramping which she stated has been present throughout this . Patient does have significant past medical history include hypertension, diabetes, chronic kidney disease. - Related Data Home Medications Medication Instructions Recorded Confirmed Ferrous Sulfate [Feosol] 650 mg PO DAILY 01/23/23 05/21/24 Folic Acid 1 mg PO DAILY 01/23/23 05/21/24 Insulin Glargine,Hum.rec.anlog 40 units SQ QAM 01/23/23 05/21/24 [Lantus Solostar Pen] Insulin Lispro [humaLOG Kwikpen] 5 units SQ AC-TID 10/24/23 05/21/24 Ergocalciferol [Vitamin D2 (1250 1,250 mcg PO MO 05/21/24 05/21/24 Mcg = 70112 Iu)] Insulin Lispro [humaLOG Kwikpen] See Protocol SQ AC-TID 05/21/24 05/21/24 Levothyroxine Sodium [Synthroid] 112 mcg PO MOTUWETHFR 05/21/24 05/21/24 Levothyroxine Sodium [Synthroid] 175 mcg PO SUSA 05/21/24 05/21/24 NIFEdipine [Adalat CC] 90 mg PO BID 05/21/24 05/21/24 Ondansetron Odt [Zofran Odt] 4 mg PO Q6H PRN 05/21/24 05/21/24 hydrALAZINE HCL [Apresoline] 100 mg PO DAILY 05/21/24 05/21/24 Vit No.179/Iron/Folic 1 each PO 07/14/24 [ Tablet] Allergies Allergy/AdvReac Type Severity Reaction Status Date / Time No Known Allergies Allergy Verified 07/13/24 22:11 Review of Systems ROS Statement: Those systems with pertinent positive or pertinent negative responses have been documented in the HPI. ROS Other: All systems not noted in ROS Statement are negative. Past Medical History Past Medical History: Diabetes Mellitus, Hypertension, Renal Disease, Thyroid Disorder Additional Past Medical History / Comment(s): CKD STAGE 4 History of Any Multi-Drug Resistant Organisms: MRSA Date of last positivie culture/infection: 03/26/18 MDRO Source:: WOUND Past Surgical History: Section, Tonsillectomy Additional Past Surgical History / Comment(s): tubal injection for infertility (current admission) laser eye b/l Past Anesthesia/Blood Transfusion Reactions: No Reported Reaction Past Psychological History: Anxiety, Depression Smoking Status: Former smoker Past Alcohol Use History: None Reported Past Drug Use History: None Reported - Past Family History Mother History Unknown: Yes General Exam Limitations: no limitations General appearance: alert, in no apparent distress Head exam: Present: atraumatic, normocephalic Eye exam: Present: normal appearance, PERRL ENT exam: Present: normal exam Neck exam: Present: normal inspection. Absent: tenderness, meningismus Respiratory exam: Present: normal lung sounds bilaterally. Absent: respiratory distress, wheezes Cardiovascular Exam: Present: regular rate, normal rhythm GI/Abdominal exam: Present: soft. Absent: distended, tenderness, guarding, rebound Neurological exam: Present: alert, oriented X3 Psychiatric exam: Present: normal affect, normal mood Skin exam: Present: warm, dry, intact Course Vital Signs 07/13/24 07/13/24 22:09 23:39 Temperature 98.5 F Pulse Rate 88 79 Respiratory 18 16 Rate Blood Pressure 152/78 148/84 O2 Sat by Pulse 99 99 Oximetry - Reevaluation(s) Reevaluation #1: 07/13/24 23:11 Just with the OB service and they will take the patient upstairs for further testing of fluid to determine if this is amniotic fluid. Discharge from the ER and taken straight to labor and delivery Medical Decision Making - Medical Decision Making Was pt. sent in by a medical professional or institution (, PA, LUMBER MATERIAL HANDLER, urgent care, hospital, or fpc...) When possible be specific @ -No Did you speak to anyone other than the patient for history (EMS, parent, family, police, friend...)? What history was obtained from this source @ -No Did you review nursing and triage notes (agree or disagree)? Why? @ -I reviewed and agree with nursing and triage notes Were old charts reviewed (outside hosp., previous admission, EMS record, old EKG, old radiological studies, urgent care reports/EKG's, fpc records)? Report findings @ -No old charts were reviewed Differential Diagnosis: UTI, stress incontinence, premature rupture of membranes EKG interpreted by me (3pts min.). @ -As above X-rays interpreted by me (1pt min.). @ -None done CT interpreted by me (1pt min.). @ -None done U/S interpreted by me (1pt. min.). @ -Ultrasound showing single live intrauterine What testing was considered but not performed or refused? (CT, X-rays, U/S, labs)? Why? @ -None What meds were considered but not given or refused? Why? @ -None Did you discuss the management of the patient with other professionals (professionals i.e. , PA, LUMBER MATERIAL HANDLER, lab, RT, psych nurse, social welfare clerk, house builder, teacher, correction officer reformatory, embedded case manager)? Give summary @ -No Was smoking cessation discussed for >3mins.? @ -No Was critical care preformed (if so, how long)? @ -No Were there social determinants of health that impacted care today? How? (Homelessness, low income, unemployed, alcoholism, drug addiction, transportation, low edu. Level, literacy, decrease access to med. care, senior care, rehab)? @ -No Was there de-escalation of care discussed even if they declined (Discuss DNR or withdrawal of care, Hospice)? DNR status @ -No What co-morbidities impacted this encounter? (DM, HTN, Smoking, COPD, CAD, Cancer, CVA, ARF, Chemo, Hep., AIDS, mental health diagnosis, sleep apnea, morbid obesity)? @ -None Was patient admitted / discharged? Hospital course, mention meds given and route, prescriptions, significant lab abnormalities, going to OR and other pertinent info. @ -[I was able to request fluid testing for concern for premature rupture of membranes, requested the patient be sent to OB for this test. Patient was discharged from the emergency department and taken to labor and delivery for f urther evaluation. Undiagnosed new problem with uncertain prognosis? @ -No Drug Therapy requiring intensive monitoring for toxicity (Heparin, Nitro, Insulin, Cardizem)? @ -No Were any procedures done? @ -No Diagnosis/symptom? @Rule out premature rupture membranes Acute, or Chronic, or Acute on Chronic? @ -Acute Uncomplicated (without systemic symptoms) or Complicated (systemic symptoms)? @ -Default Side effects of treatment? @ -No Exacerbation, Progression, or Severe Exacerbation? @ -No Poses a threat to life or bodily function? How? (Chest pain, USA, AR, pneumonia, PE, COPD, DKA, ARF, appy, cholecystitis, CVA, Diverticulitis, Homicidal, Suicidal, threat to staff... and all critical care pts) @ -No - Lab Data Lab Results 07/13/24 Range/Units 22:21 Urine Color Colorless Urine Appearance Clear (Clear) Urine pH 5.5 (5.0-8.0) Ur Specific [place] 1.006 (1.001-1.035) Urine Protein 2+ H (Negative) Urine Glucose (UA) Negative (Negative) Urine Ketones Negative (Negative) Urine Blood Trace H (Negative) Urine Nitrite Negative (Negative) Urine Bilirubin Negative (Negative) Urine Urobilinogen <2.0 (<2.0) mg/dL Ur Leukocyte Esterase Negative (Negative) Urine RBC 5 (0-5) /hpf Urine WBC 1 (0-5) /hpf Ur Squamous Epith Cells 1 (0-4) /hpf Urine Bacteria Rare H (None) /hpf Hyaline Casts 14 H (0-2) /lpf Urine Mucus Rare H (None) /hpf Disposition Clinical Impression: Narrative: Rule out amniotic fluid leak Disposition: HOME SELF-CARE Condition: Fair Additional Instructions: After discharge please go directly to labor and delivery for amniotic fluid testing. Is patient prescribed a controlled substance at d/c from ED?: No Referrals: Rani Fuchs MD [Primary Care Provider] - 1-2 days Time of Disposition: 23:13
[2024-07-13 23:14] LABS: Appearance,Urine Clear (Clear); Bacteria,Urine Rare /hpf; Bilirubin,Urine Negative (Negative); Blood,Urine Trace (Negative); Color,Urine Colorless; Glucose,Urine (UA) Negative (Negative); Hyaline Casts,Urine 14 /lpf (0-2); Ketones,Urine Negative (Negative); Leukocyte Esterase,Urine Negative (Negative); Mucus,Urine Rare /hpf; Nitrite,Urine Negative (Negative); PH, Urine 5.5 (5.0-8.0); Protein,Urine 2+ (Negative); RBC,Urine 5 /hpf (0-5); Specific Gravity,Urine 1.006 (1.001-1.035); Squamous Epithelial Cell,Urine 1 /hpf (0-4); Urobilinogen,Urine <2.0 mg/dL (<2.0); WBC,Urine 1 /hpf (0-5)
[2024-07-13 23:49] VITALS: BP 148/84; PULSE 79; RESP 16
--- NOTE | 2024-07-14 00:21 | US ---
EXAM: US OB >= 14 wk fetus DATE OF EXAM: 07/13/2024 COMPARISON: 05/21/24 CLINICAL INDICATION: Female, 33 years old with history of Possible rupture membrane; Patient states PROM 12 years ago. Patient goes to high risk doctor, just had normal ultrasound today TECHNIQUE: Transabdominal pelvic ultrasound Limitation: Slightly limited due to body habitus and position FINDINGS: GESTATIONAL AGE / DATING Physician Established: (16 weeks/2 days) EDC: 12/26/2024 Dates by LMP: (16 weeks/2 days) EDC: 12/26/2024 Dates by First Scan: (16 weeks/1 days) EDC: 12/28/2023 Dates by Current Scan: (16 weeks/3 days) EDC: 12/26/2023 Beta HCG : Not available at this time SURVEY IUP: Single PLACENTA: Posterior PREVIA: No Previa CASIMIRO: 10.5 cm Normal CERVICAL LENGTH (transabdominal: norm > 3.0cm): 3.0 cm BIOMETRY PRESENTATION: Vertex LIE: Variable BPD: 3.43 cm 16 weeks / 4 days HC: 13.7 cm 17 weeks / 1 days AC: 11.4 cm 17 weeks / 1 days FL: 1.7 cm 15 weeks / 1 days ESTIMATED WEIGHT IN GRAMS: 150.49 grams ESTIMATED WEIGHT IN LBS/OZ: 0 lbs. 5 oz. WEIGHT PERCENTAGE BASED ON ESTABLISHED DATES: 40.2% HC/AC: 1.2 Normal FL/AC: 15.12 HEART RATE: 132 bpm RHYTHM: Normal anatomy: This exam is not dedicated for anatomical survey. Impression: Single live intrauterine with an estimated gestational age of 16 weeks 3 days. Estimated due date is 12-25-24
== END 2024-07-13 23:39 | disposition home or self-care (01) ==
LOC: EC 22:05
DX: Z34.92 Encounter for supervision of normal pregnancy, unspecified, second trimester (principal); Z87.891 Personal history of nicotine dependence; Z3A.16 16 weeks gestation of pregnancy
CPT/HCPCS: 76805; 81001; 99284

== ENCOUNTER 2024-07-13 23:42 | Outpatient (CLI) | payer BC ==
[2024-07-14 00:43] VITALS: BP 148/71; PULSE 79; RESP 16; TEMP 98.4
--- NOTE | 2024-07-15 14:08 | P.MSEPDOC ---
Presenting Problems - Arrival Data Date of Arrival on Unit: 07/14/24 Time of Arrival on Unit: 23:42 Mode of Transport: Wheelchair - Complaint OB-Reason for Admission/Chief Complaint: Elevated Blood Pressure Comment: Patient arrived to our triage from ER and states that she thinks her water broke she felt two gushes around 1830, Dr. Gomez is on FBP unit and aware of complaint. Patient was assessed in ER and an Ultrasound was performed. Blood Pressure is elevated. Medical History - Information : 2 Para: 0 Term: 0 : 1 Abortions: Spontaneous or Elective: 1 Number of Living Children: 0 - Gestational Age Gestational Age by MORGAN (wks/days): 16 Weeks and 3 Days - History Complications: Prior Comment: Patient arrived to our triage from ER and states that she thinks her water broke she felt two gushes around 183, Dr. Gomez is on FBP unit and aware of complaint.Patient was assessed in ER and an Ultrasound was performed. Review of Systems - Review of Systems Constitutional: No problems Breast: No problems ENT: No problems Cardiovascular: No problems Respiratory: No problems Gastrointestinal: No problems Genitourinary: No problems Musculoskeletal: No problems Neurological: No problems Skin: No problems Vital Signs - Temperature Temperature: 98.4 F Temperature Source: Oral - Pulse Pulse Oximetery Pulse Rate: 79 Pulse Assessment Method: Pulse Oximetry - Respirations Respiratory Rate: 16 Oxygen Delivery Method: Room Air O2 Sat by Pulse Oximetry: 98 - Blood Pressure Right Arm Blood Pressure: 148/71 Blood Pressure Mean: 96 Blood Pressure Source: Automatic Cuff Medical Screen Scoring - Cervical Exam Membranes: Intact - Assessment - Baby A Baseline FHR: 130 Physician Notification - Physician Notified Physician Notified Date: 07/14/24 Physician Notified Time: 00:05 Physician: Katarina Gomez New Order Received: Yes - Notification Comment Comment: Patient not complaining of cramping or tightening of the abdomen, RN at bedside abdomen soft to palpation. Dr. Gomez on unit and is aware RN did palpate abdomen and TOCO was not placed Dr. Gomez dose not think [place] is nessesary. Dr. Gomez would like an amnisure performed. Patient to be discharged if amnisure is negative. Dr. Gomez aware of elevated BP on arrival no further orders. Maternal Triage Index - Urgent/Priority 2 Urgent Priority 2: Yes Provider Notified: Katarina Gomez Provider Notified Time: 23:50 Criteria Met for Priority 2: Dr. Gomez on unit and aware of Blood Pressure. Patient not complaining of cramping or tightening of the abdomen, RN at bedside abdomen soft to palpation. Dr. Gomez on unit and is aware RN did palpate abdomen and TOCO was not placed Dr. Gomez does not think [place] is nessesary. Dr. Gomez wants RN to perform amnisure assessment Disposition - Disposition OB Disposition: Discharge to home Discharge Date: 07/14/24 I agree with the RN Medical Screening Exam: Yes Case reviewed; plan agreed upon as documented in EMR&OBIX.: Yes Diagnosis: RELATED CONDITIONS, UNSPECIFIED, SECOND TRIMESTER
== END 2024-07-14 00:23 | disposition home or self-care (01) ==
LOC: FBPOP 23:42
PROVIDERS: ATTEND Obstetrics & Gynecology Obstetrics
DX: O26.892 Other specified pregnancy related conditions, second trimester (principal); R03.0 Elevated blood-pressure reading, without diagnosis of hypertension; Z3A.16 16 weeks gestation of pregnancy
CPT/HCPCS: 84112; 99213

== ENCOUNTER 2024-10-28 15:57 | Outpatient (CLI) | payer BC ==
[2024-10-28 16:40] LABS: Appearance,Urine Cloudy (Clear); Bacteria,Urine Moderate /hpf; Bilirubin,Urine Negative (Negative); Blood,Urine Small (Negative); Color,Urine Colorless; Glucose,Urine (UA) 2+ (Negative); Ketones,Urine Negative (Negative); Leukocyte Esterase,Urine Moderate (Negative); Mucus,Urine Rare /hpf; Nitrite,Urine Negative (Negative); Protein,Urine 2+ (Negative); RBC,Urine 15 /hpf (0-5); Specific Gravity,Urine 1.009 (1.001-1.035); Squamous Epithelial Cell,Urine 7 /hpf (0-4); Urobilinogen,Urine <2.0 mg/dL (<2.0); WBC,Urine 10 /hpf (0-5)
[2024-10-28 16:47] LABS: Basophils % (A) 0 %; Eosinophils # (A) 0.2 k/uL (0-0.7); Eosinophils % (A) 3 %; HCT 30.5 % (34.0-46.0); HGB 10.2 gm/dL (11.4-16.0); Lymphocytes # (A) 0.9 k/uL (1.0-4.8); Lymphocytes % (A) 11 %; MCH 33.7 pg (25.0-35.0); MCHC 33.3 g/dL (31.0-37.0); MCV 101.2 fL (80.0-100.0); Macrocytosis Slight; Mean Platelet Volume 7.6; Monocytes # (A) 0.3 k/uL (0-1.0); Monocytes % (A) 4 %; Neutrophils # (A) 6.1 k/uL (1.3-7.7); Neutrophils % (A) 80 %; Platelet Count 219 k/uL (150-450); RBC 3.02 m/uL (3.80-5.40); RDW 14.4 % (11.5-15.5); WBC 7.5 k/uL (3.8-10.6)
[2024-10-28 16:50] LABS: Creatinine,Urine Random 38.3 mg/dL
[2024-10-28] MEDS: LACTATED RINGERS 1,000 ML BAG IV STA (16:50)
[2024-10-28] MEDS: BETAMET ACET-BETAMETH SOD PHOS 6 MG/ML MDV IM SCH (16:50)
[2024-10-28] MEDS: MAGNESIUM SULFATE-WATER PMX 4 GM in WATER FOR INJECTION 1 100ML.BAG IVPB ONE (16:51)
[2024-10-28 16:57] LABS: Protein/Creatinine Ratio,Urine 9.661
[2024-10-28 17:03] LABS: INR 0.8 (<1.2); Prothrombin Time 9.4 sec (10.0-12.5)
[2024-10-28 17:05] LABS: ALT 16 U/L (4-34); AST 19 U/L (14-36); African American GFR (CKD) 30 (>60 ml/min/1.73 sqM); Blood Urea Nitrogen 38 mg/dL (7-17); LDH 155 U/L (120-246); Non-African American GFR(CKD) 26 (>60 ml/min/1.73 sqM); Uric Acid 6.6 mg/dL (3.7-7.4)
[2024-10-28 17:10] LABS: Partial Thromboplastin Time 21.8 sec (22.0-30.0)
[2024-10-28] MEDS: MAGNESIUM SULFATE-WATER PMX 20 GM in WATER FOR INJECTION 1 500ML.BAG IV SCH (17:28)
[2024-10-28] MEDS: hydrALAZINE HCL 20 MG/ML 1 ML VIAL IVP STA (17:51)
--- NOTE | 2024-10-28 17:59 | P.HPOB ---
History of Present Illness H&P Date: 10/28/24 Chief Complaint: headache 34 year old presents with a headache and very high BPs. She is on BP medication and took that today but developed a headache and found her pressures to not be going down. She also has Chronic Kidney Disease and Diabetes. She has been followed by the high risk resident clinic at [facility]. Review of Systems All systems: negative Constitutional: Denies chills, Denies fever Eyes: denies blurred vision, denies pain Ears, nose, mouth and throat: Denies headache, Denies sore throat Cardiovascular: Denies chest pain, Denies shortness of breath Respiratory: Denies cough Gastrointestinal: Denies abdominal pain, Denies diarrhea, Denies nausea, Denies vomiting Genitourinary: Denies dysuria, Denies hematuria Musculoskeletal: Denies myalgias Integumentary: Denies pruritus, Denies rash Neurological: Denies numbness, Denies weakness Psychiatric: Denies anxiety, Denies depression Endocrine: Denies fatigue, Denies weight change Past Medical History Past Medical History: Diabetes Mellitus, Hypertension, Renal Disease, Thyroid Disorder Additional Past Medical History / Comment(s): CKD STAGE 4 History of Any Multi-Drug Resistant Organisms: MRSA Date of last positivie culture/infection: 03/26/18 MDRO Source:: WOUND Past Surgical History: Section, Tonsillectomy Additional Past Surgical History / Comment(s): tubal injection for infertility (current admission) laser eye b/l Past Anesthesia/Blood Transfusion Reactions: No Reported Reaction Smoking Status: Never smoker - Past Family History Mother History Unknown: Yes Medications and Allergies Home Medications Medication Instructions Recorded Confirmed Type Ferrous Sulfate [Feosol] 650 mg PO DAILY 01/23/23 10/28/24 History Folic Acid 1 mg PO DAILY 01/23/23 10/28/24 History Insulin Lispro [humaLOG Kwikpen] 10 units SQ AC-TID 10/24/23 10/28/24 History Ergocalciferol [Vitamin D2 (1250 50,000 mcg PO WEEKLY 05/21/24 10/28/24 History Mcg = 14319 Iu)] Insulin Lispro [humaLOG Kwikpen] See Protocol SQ AC-TID 05/21/24 10/28/24 History NIFEdipine [Adalat CC] 90 mg PO BID 05/21/24 10/28/24 History Ondansetron Odt [Zofran Odt] 4 mg PO Q6H PRN 05/21/24 10/28/24 History hydrALAZINE HCL [Apresoline] 100 mg PO TID 05/21/24 10/28/24 History Vit No.179/Iron/Folic 1 each PO DAILY 07/14/24 10/28/24 History [ Tablet] Insulin Glargine,Hum.rec.anlog 15 units SQ PC-SUPPER 09/17/24 10/28/24 History [Lantus Solostar Pen] Insulin Glargine,Hum.rec.anlog 60 units SQ AC-BRKFST 09/17/24 10/28/24 History [Lantus Solostar Pen] Levothyroxine Sodium 225 mcg PO DAILY 09/17/24 10/28/24 History Allergies Allergy/AdvReac Type Severity Reaction Status Date / Time labetalol AdvReac Chest Pain Verified 10/28/24 16:22 Exam Osteopathic Statement: *. No significant issues noted on an osteopathic structural exam other than those noted in the History and Physical/Consult. Intake and Output 10/28/24 10/28/24 10/28/24 06:59 14:59 22:59 Other: Weight 113.398 kg Heart: RRR Lungs: CTAB Abdomen: soft, nontender Extremties: neg alex's, +3 patellar reflexes Results Result Diagrams: 10/28/24 16:39 10/28/24 16:39 Abnormal Lab Results - Last 24 Hours (Table) 10/28/24 10/28/24 10/28/24 Range/Units 16:23 16:39 16:39 RBC 3.02 L (3.80-5.40) m/uL Hgb 10.2 L (11.4-16.0) gm/dL Hct 30.5 L (34.0-46.0) % MCV 101.2 H (80.0-100.0) fL Lymphocytes # 0.9 L (1.0-4.8) k/uL PT 9.4 L (10.0-12.5) sec APTT 21.8 L (22.0-30.0) sec Fibrinogen 574 H (200-500) mg/dL BUN (7-17) mg/dL Creatinine (0.52-1.04) mg/dL Urine Appearance Cloudy H (Clear) Urine Protein 2+ H (Negative) Urine Glucose (UA) 2+ H (Negative) Urine Blood Small H (Negative) Ur Leukocyte Esterase Moderate H (Negative) Urine RBC 15 H (0-5) /hpf Urine WBC 10 H (0-5) /hpf Ur Squamous Epith Cells 7 H (0-4) /hpf Urine Bacteria Moderate H (None) /hpf Urine Mucus Rare H (None) /hpf 10/28/24 Range/Units 16:39 RBC (3.80-5.40) m/uL Hgb (11.4-16.0) gm/dL Hct (34.0-46.0) % MCV (80.0-100.0) fL Lymphocytes # (1.0-4.8) k/uL PT (10.0-12.5) sec APTT (22.0-30.0) sec Fibrinogen (200-500) mg/dL BUN 38 H (7-17) mg/dL Creatinine 2.40 H (0.52-1.04) mg/dL Urine Appearance (Clear) Urine Protein (Negative) Urine Glucose (UA) (Negative) Urine Blood (Negative) Ur Leukocyte Esterase (Negative) Urine RBC (0-5) /hpf Urine WBC (0-5) /hpf Ur Squamous Epith Cells (0-4) /hpf Urine Bacteria (None) /hpf Urine Mucus (None) /hpf Assessment and Plan (1) Chronic hypertension with superimposed preeclampsia Current Visit: Yes Status: Acute Code(s): O11.9 - PRE-EXISTING HYPERTENSION WITH PRE-ECLAMPSIA, UNSP TRIMESTER SNOMED Code(s): 66741175 (2) Chronic kidney disease Current Visit: No Status: Acute Code(s): N18.9 - CHRONIC KIDNEY DISEASE, UNSPECIFIED SNOMED Code(s): 345654862 (3) 31 weeks gestation of Current Visit: Yes Status: Acute Code(s): Z3A.31 - 31 WEEKS GESTATION OF SNOMED Code(s): 72714450 Plan: 1. transfer to [facility] for care with [facility] and neonatology 2. mag sulfate 4 gram bolus and 1 gram an hour 3. hydralazine protocol for BPs
[2024-10-28 19:37] VITALS: BP 204/93; PULSE 82; RESP 16
== END 2024-10-28 19:30 ==
LOC: FBPOP 15:57
PROVIDERS: ATTEND Obstetrics & Gynecology
DX: O26.832 Pregnancy related renal disease, second trimester (principal); O11.3 Pre-existing hypertension with pre-eclampsia, third trimester; Z3A.31 31 weeks gestation of pregnancy; Z91.048 Other nonmedicinal substance allergy status
CPT/HCPCS: 59025; 99215; 96361; 96365; 96366; 96372; 96375; 36415; 82570; 84156; 82565; 83615; 84450; 84460; 84520; 84550; 85025; 85384; 85610; 85730; 81001; J0360; J3475 ×2; J0702

== ENCOUNTER 2024-11-21 18:28 | Inpatient (IN) | payer BC ==
--- NOTE | 2024-11-21 19:11 | ED ---
Nausea/Vomiting/Diarrhea HPI - General Chief complaint: Nausea/Vomiting/Diarrhea Stated complaint: Dehydration, abn labs Time Seen by Provider: 11/21/24 18:46 Source: patient, RN notes reviewed Mode of arrival: ambulatory Limitations: no limitations - History of Present Illness Initial comments: This is a 34-year-old female with history including insulin-dependent DM and CKD stage IV presenting with sick symptoms x 1 day. Patient endorses n ausea/vomiting, diarrhea, headache (03/10) and that he will elevated blood glucose levels (400s). States she has given herself 20 units of insulin today but has not rechecked levels since that time. Also endorses productive cough x 7 days. Endorses boyfriend having similar GI symptoms and testing negative for influenza. Denies [id number] medication use. Denies chest pain, dyspnea, abdominal pain, hematemesis, hematochezia, melena, AMS, ALOC. MD complaint: nausea, vomiting, diarrhea Onset/Timin -: days(s) Associated Abdominal Pain: No - Related Data Home Medications Medication Instructions Recorded Confirmed Ferrous Sulfate [Feosol] 650 mg PO DAILY 01/23/23 11/05/24 Folic Acid 1 mg PO DAILY 01/23/23 11/05/24 Insulin Lispro [humaLOG Kwikpen] 10 units SQ AC-TID 10/24/23 11/05/24 Ergocalciferol [Vitamin D2 (1250 50,000 mcg PO WEEKLY 05/21/24 11/05/24 Mcg = 21158 Iu)] Insulin Lispro [humaLOG Kwikpen] See Protocol SQ AC-TID 05/21/24 11/05/24 NIFEdipine [Adalat CC] 90 mg PO BID 05/21/24 11/05/24 Ondansetron Odt [Zofran Odt] 4 mg PO Q6H PRN 05/21/24 11/05/24 hydrALAZINE HCL [Apresoline] 100 mg PO TID 05/21/24 11/05/24 Vit No.179/Iron/Folic 1 each PO DAILY 07/14/24 11/05/24 [ Tablet] Insulin Glargine,Hum.rec.anlog 15 units SQ PC-SUPPER 09/17/24 11/05/24 [Lantus Solostar Pen] Insulin Glargine,Hum.rec.anlog 60 units SQ AC-BRKFST 09/17/24 11/05/24 [Lantus Solostar Pen] Levothyroxine Sodium 225 mcg PO DAILY 09/17/24 11/05/24 Allergies Allergy/AdvReac Type Severity Reaction Status Date / Time labetalol AdvReac Chest Pain Verified 11/21/24 18:47 Review of Systems ROS Statement: Those systems with pertinent positive or pertinent negative responses have been documented in the HPI. ROS Other: All systems not noted in ROS Statement are negative. Past Medical History Past Medical History: Diabetes Mellitus, Hypertension, Renal Disease, Thyroid Disorder Additional Past Medical History / Comment(s): CKD STAGE 4 History of Any Multi-Drug Resistant Organisms: MRSA Date of last positivie culture/infection: 03/26/18 MDRO Source:: WOUND Past Surgical History: Section, Tonsillectomy Additional Past Surgical History / Comment(s): tubal injection for infertility (current admission) laser eye b/l Past Anesthesia/Blood Transfusion Reactions: No Reported Reaction Past Psychological History: Anxiety, Depression Smoking Status: Never smoker Past Alcohol Use History: None Reported Past Drug Use History: None Reported - Past Family History Mother History Unknown: Yes General Exam Limitations: no limitations General appearance: alert, in no apparent distress Head exam: Present: atraumatic, normocephalic, normal inspection Eye exam: Present: normal appearance, PERRL, EOMI. Absent: scleral icterus, conjunctival injection, periorbital swelling ENT exam: Present: normal exam, mucous membranes moist Neck exam: Present: normal inspection. Absent: tenderness, meningismus, lymphadenopathy Respiratory exam: Present: normal lung sounds bilaterally. Absent: respiratory distress, wheezes, rales, rhonchi, stridor, accessory muscle use, decreased breath sounds, prolonged expiratory Cardiovascular Exam: Present: regular rate, normal rhythm, normal heart sounds. Absent: systolic murmur, diastolic murmur, rubs, gallop, clicks GI/Abdominal exam: Present: soft, normal bowel sounds. Absent: distended, tenderness, guarding, rebound, rigid Extremities exam: Present: normal inspection, full ROM, normal capillary refill. Absent: tenderness, pedal edema, joint swelling, calf tenderness Back exam: Present: normal inspection Neurological exam: Present: alert, oriented X3, CN II-XII intact Psychiatric exam: Present: normal affect, normal mood Skin exam: Present: warm, dry, intact, normal color. Absent: rash Course Vital Signs 11/21/24 11/21/24 11/21/24 18:42 20:46 22:50 Temperature 100.8 F H 99.5 F Pulse Rate 115 H 93 Respiratory 18 18 Rate Blood Pressure 144/85 144/80 O2 Sat by Pulse 97 100 Oximetry Medical Decision Making - Medical Decision Making Was pt. sent in by a medical professional or institution (, PA, SOLDER MAKING SUPERVISOR, urgent care, hospital, or assisted...) When possible be specific @ -No Did you speak to anyone other than the patient for history (EMS, parent, family, police, friend...)? What history was obtained from this source @ -No Did you review nursing and triage notes (agree or disagree)? Why? @ -I reviewed and agree with nursing and triage notes Were old charts reviewed (outside hosp., previous admission, EMS record, old EKG, old radiological studies, urgent care reports/EKG's, assisted records)? Report findings @ -No old charts were reviewed Differential Diagnosis (chest pain, altered mental status, abdominal pain women, abdominal pain men, vaginal bleeding, weakness, fever, dyspnea, syncope, headache, dizziness, GI bleed, back pain, seizure, CVA, palpatations, mental health, musculoskeletal)? @ -Differential Fever: Pneumonia, viral URI, endocarditis, myocarditis, pericarditis, otitis, sinusitis, peritonsillar Abscess, retropharyngeal Abscess, epiglottitis, per itonitis, appendicitis, Lamar cystitis, diverticulitis, hepatitis, colitis, UTI, PID, TOA, pyelonephritis, prostatitis, epididymitis, meningitis, encephalitis, pulmonary embolism, CVA, thyroid storm, pancreatitis, adrenal crisis, cavernous sinus thrombosis, this is not meant to be an all-inclusive list. EKG interpreted by me (3pts min.). @ -Not done X-rays interpreted by me (1pt min.). @ -CXR shows no acute cardiopulmonary process. CT interpreted by me (1pt min.). @ -None done U/S interpreted by me (1pt. min.). @ -None done What testing was considered but not performed or refused? (CT, X-rays, U/S, labs)? Why? @ -None What meds were considered but not given or refused? Why? @ -None Did you discuss the management of the patient with other professionals (professionals i.e. , ANDREA, SOLDER MAKING SUPERVISOR, lab, RT, psych nurse, sexual assault social worker, educational psychology teacher, teacher, activities officer, case folder)? Give summary @ -Spoke to Desiree from [facility] who agreed to patient mission to obs unit for KAYLIN. Was smoking cessation discussed for >3mins.? @ -No Was critical care preformed (if so, how long)? @ -No Were there social determinants of health that impacted care today? How? (Homel essness, low income, unemployed, alcoholism, drug addiction, transportation, low edu. Level, literacy, decrease access to med. care, [facility], rehab)? @ -No Was there de-escalation of care discussed even if they declined (Discuss DNR or withdrawal of care, Hospice)? DNR status @ -No What co-morbidities impacted this encounter? (DM, HTN, Smoking, COPD, CAD, Cancer, CVA, ARF, Chemo, Hep., AIDS, mental health diagnosis, sleep apnea, morbid obesity)? @ -None Was patient admitted / discharged? Hospital course, mention meds given and route, prescriptions, significant lab abnormalities, going to OR and other pertinent info. @ -Lab work shows leukocytosis 13.6 with left shift, lactic acidosis 2.7, hyperglycemia 186 and KAYLIN. UA shows proteinuria and glycosuria. Urine hCG negative. Cepheid test negative. CXR shows no acute cardiopulmonary process. Patient initially given IV normal saline, p.o. Tylenol and IV Zofran. Additional p.o. Tylenol given for ongoing headache. Repeat lactic acid 0.7 with ongoing KAYLIN. Spoke to Desiree from [facility] who agreed to patient mission to obs unit for KAYLIN. Discussed patient with Dr. Abarca. Undiagnosed new problem with uncertain prognosis? @ -KAYLIN Drug Therapy requiring intensive monitoring for toxicity (Heparin, Nitro, Insulin, Cardizem)? @ -No Were any procedures done? @ -No Diagnosis/symptom? @ -KAYLIN, gastroenteritis Acute, or Chronic, or Acute on Chronic? @ -Acute Uncomplicated (without systemic symptoms) or Complicated (systemic symptoms)? @ -Complicated Side effects of treatment? @ -No Exacerbation, Progression, or Severe Exacerbation? @ -No Poses a threat to life or bodily function? How? (Chest pain, [place], [place], pneumonia, PE, COPD, DKA, ARF, appy, cholecystitis, CVA, Diverticulitis, Homicidal, Suicidal, threat to staff... and all critical care pts) @ -KAYLIN, renal failure - Lab Data Result diagrams: 11/21/24 19:38 11/21/24 22:34 Lab Results 11/21/24 11/21/24 11/21/24 Range/Units 19:37 19:38 19:38 WBC 13.6 H (3.8-10.6) k/uL RBC 4.05 (3.80-5.40) m/uL Hgb 13.1 (11.4-16.0) gm/dL Hct 40.4 (34.0-46.0) % MCV 99.7 (80.0-100.0) fL MCH 32.3 (25.0-35.0) pg MCHC 32.4 (31.0-37.0) g/dL RDW 13.7 (11.5-15.5) % Plt Count 347 (150-450) k/uL MPV 7.4 Neutrophils % 96 % Lymphocytes % 2 % Monocytes % 2 % Eosinophils % 1 % Basophils % 0 % Neutrophils # 13.0 H (1.3-7.7) k/uL Lymphocytes # 0.2 L (1.0-4.8) k/uL Monocytes # 0.2 (0-1.0) k/uL Eosinophils # 0.1 (0-0.7) k/uL Basophils # 0.0 (0-0.2) k/uL Sodium 133 L (137-145) mmol/L Potassium 4.5 (3.5-5.1) mmol/L Chloride 102 (98-107) mmol/L Carbon Dioxide 22 (22-30) mmol/L Anion Gap 9 mmol/L BUN 62 H (7-17) mg/dL Creatinine 3.47 H (0.52-1.04) mg/dL Est GFR (CKD-EPI)AfAm 19 (>60 ml/min/1.73 sqM) Est GFR (CKD-EPI)NonAf 17 (>60 ml/min/1.73 sqM) Glucose 186 H (74-99) mg/dL POC Glucose (mg/dL) 185 H (70-110) mg/dL POC Glu [employer] ID Vanesa Morgan Lactic Ac Sepsis Rflx Plasma Lactic Acid Arsh (0.7-2.0) mmol/L Calcium 8.6 (8.4-10.2) mg/dL Phosphorus 3.0 (2.5-4.5) mg/dL Magnesium 1.8 (1.6-2.3) mg/dL Total Bilirubin 0.5 (0.2-1.3) mg/dL AST 18 (14-36) U/L ALT 20 (4-34) U/L Alkaline Phosphatase 82 (38-126) U/L Total Protein 6.4 (6.3-8.2) g/dL Albumin 3.5 (3.5-5.0) g/dL Urine Color Urine Appearance (Clear) Urine pH (5.0-8.0) Ur Specific [place] (1.001-1.035) Urine Protein (Negative) Urine Glucose (UA) (Negative) Urine Ketones (Negative) Urine Blood (Negative) Urine Nitrite (Negative) Urine Bilirubin (Negative) Urine Urobilinogen (<2.0) mg/dL Ur Leukocyte Esterase (Negative) Urine RBC (0-5) /hpf Urine WBC (0-5) /hpf Ur Squamous Epith Cells (0-4) /hpf Ur Transition Epith Cell (0-1) /hpf Calcium Oxalate Crystal (None) /hpf Urine Bacteria (None) /hpf Granular Casts (0) /lpf Urine Mucus (None) /hpf Urine Yeast (Budding) (None) /hpf Urine HCG, Qual (Not Detectd) Influenza Type A (PCR) (Not Detectd) Influenza Type B (PCR) (Not Detectd) RSV (PCR) (Not Detectd) SARS-CoV-2 (PCR) (Not Detectd) 11/21/24 11/21/24 11/21/24 Range/Units 19:38 19:38 20:08 WBC (3.8-10.6) k/uL RBC (3.80-5.40) m/uL Hgb (11.4-16.0) gm/dL Hct (34.0-46.0) % MCV (80.0-100.0) fL MCH (25.0-35.0) pg MCHC (31.0-37.0) g/dL RDW (11.5-15.5) % Plt Count (150-450) k/uL MPV Neutrophils % % Lymphocytes % % Monocytes % % Eosinophils % % Basophils % % Neutrophils # (1.3-7.7) k/uL Lymphocytes # (1.0-4.8) k/uL Monocytes # (0-1.0) k/uL Eosinophils # (0-0.7) k/uL Basophils # (0-0.2) k/uL Sodium (137-145) mmol/L Potassium (3.5-5.1) mmol/L Chloride (98-107) mmol/L Carbon Dioxide (22-30) mmol/L Anion Gap mmol/L BUN (7-17) mg/dL Creatinine (0.52-1.04) mg/dL Est GFR (CKD-EPI)AfAm (>60 ml/min/1.73 sqM) Est GFR (CKD-EPI)NonAf (>60 ml/min/1.73 sqM) Glucose (74-99) mg/dL POC Glucose (mg/dL) (70-110) mg/dL POC Glu [employer] ID Lactic Ac Sepsis Rflx Y Plasma Lactic Acid Arsh 2.7 H* (0.7-2.0) mmol/L Calcium (8.4-10.2) mg/dL Phosphorus (2.5-4.5) mg/dL Magnesium (1.6-2.3) mg/dL Total Bilirubin (0.2-1.3) mg/dL AST (14-36) U/L ALT (4-34) U/L Alkaline Phosphatase (38-126) U/L Total Protein (6.3-8.2) g/dL Albumin (3.5-5.0) g/dL Urine Color Urine Appearance (Clear) Urine pH (5.0-8.0) Ur Specific [place] (1.001-1.035) Urine Protein (Negative) Urine Glucose (UA) (Negative) Urine Ketones (Negative) Urine Blood (Negative) Urine Nitrite (Negative) Urine Bilirubin (Negative) Urine Urobilinogen (<2.0) mg/dL Ur Leukocyte Esterase (Negative) Urine RBC (0-5) /hpf Urine WBC (0-5) /hpf Ur Squamous Epith Cells (0-4) /hpf Ur Transition Epith Cell (0-1) /hpf Calcium Oxalate Crystal (None) /hpf Urine Bacteria (None) /hpf Granular Casts (0) /lpf Urine Mucus (None) /hpf Urine Yeast (Budding) (None) /hpf Urine HCG, Qual (Not Detectd) Influenza Type A (PCR) Not Detected (Not Detectd) Influenza Type B (PCR) Not Detected (Not Detectd) RSV (PCR) Not Detected (Not Detectd) SARS-CoV-2 (PCR) Not Detected (Not Detectd) 11/21/24 11/21/24 11/21/24 Range/Units 20:46 20:46 22:34 WBC (3.8-10.6) k/uL RBC (3.80-5.40) m/uL Hgb (11.4-16.0) gm/dL Hct (34.0-46.0) % MCV (80.0-100.0) fL MCH (25.0-35.0) pg MCHC (31.0-37.0) g/dL RDW (11.5-15.5) % Plt Count (150-450) k/uL MPV Neutrophils % % Lymphocytes % % Monocytes % % Eosinophils % % Basophils % % Neutrophils # (1.3-7.7) k/uL Lymphocytes # (1.0-4.8) k/uL Monocytes # (0-1.0) k/uL Eosinophils # (0-0.7) k/uL Basophils # (0-0.2) k/uL Sodium 132 L (137-145) mmol/L Potassium 4.4 (3.5-5.1) mmol/L Chloride 105 (98-107) mmol/L Carbon Dioxide 21 L (22-30) mmol/L Anion Gap 6 mmol/L BUN 60 H (7-17) mg/dL Creatinine 3.17 H (0.52-1.04) mg/dL Est GFR (CKD-EPI)AfAm 21 (>60 ml/min/1.73 sqM) Est GFR (CKD-EPI)NonAf 18 (>60 ml/min/1.73 sqM) Glucose 125 H (74-99) mg/dL POC Glucose (mg/dL) (70-110) mg/dL POC Glu [employer] ID Lactic Ac Sepsis Rflx Plasma Lactic Acid Arsh (0.7-2.0) mmol/L Calcium 7.7 L (8.4-10.2) mg/dL Phosphorus (2.5-4.5) mg/dL Magnesium (1.6-2.3) mg/dL Total Bilirubin 0.4 (0.2-1.3) mg/dL AST 14 (14-36) U/L ALT 16 (4-34) U/L Alkaline Phosphatase 73 (38-126) U/L Total Protein 5.4 L (6.3-8.2) g/dL Albumin 2.9 L (3.5-5.0) g/dL Urine Color Light Yellow Urine Appearance Cloudy H (Clear) Urine pH 5.5 (5.0-8.0) Ur Specific [place] 1.019 (1.001-1.035) Urine Protein 3+ H (Negative) Urine Glucose (UA) 3+ H (Negative) Urine Ketones Negative (Negative) Urine Blood Small H (Negative) Urine Nitrite Negative (Negative) Urine Bilirubin Negative (Negative) Urine Urobilinogen <2.0 (<2.0) mg/dL Ur Leukocyte Esterase Negative (Negative) Urine RBC 5 (0-5) /hpf Urine WBC 2 (0-5) /hpf Ur Squamous Epith Cells 5 H (0-4) /hpf Ur Transition Epith Cell <1 (0-1) /hpf Calcium Oxalate Crystal Rare H (None) /hpf Urine Bacteria Rare H (None) /hpf Granular Casts 17 (0) /lpf Urine Mucus Rare H (None) /hpf Urine Yeast (Budding) Occasional H (None) /hpf Urine HCG, Qual Not Detected (Not Detectd) Influenza Type A (PCR) (Not Detectd) Influenza Type B (PCR) (Not Detectd) RSV (PCR) (Not Detectd) SARS-CoV-2 (PCR) (Not Detectd) 11/21/24 Range/Units 22:34 WBC (3.8-10.6) k/uL RBC (3.80-5.40) m/uL Hgb (11.4-16.0) gm/dL Hct (34.0-46.0) % MCV (80.0-100.0) fL MCH (25.0-35.0) pg MCHC (31.0-37.0) g/dL RDW (11.5-15.5) % Plt Count (150-450) k/uL MPV Neutrophils % % Lymphocytes % % Monocytes % % Eosinophils % % Basophils % % Neutrophils # (1.3-7.7) k/uL Lymphocytes # (1.0-4.8) k/uL Monocytes # (0-1.0) k/uL Eosinophils # (0-0.7) k/uL Basophils # (0-0.2) k/uL Sodium (137-145) mmol/L Potassium (3.5-5.1) mmol/L Chloride (98-107) mmol/L Carbon Dioxide (22-30) mmol/L Anion Gap mmol/L BUN (7-17) mg/dL Creatinine (0.52-1.04) mg/dL Est GFR (CKD-EPI)AfAm (>60 ml/min/1.73 sqM) Est GFR (CKD-EPI)NonAf (>60 ml/min/1.73 sqM) Glucose (74-99) mg/dL POC Glucose (mg/dL) (70-110) mg/dL POC Glu Inspector [employer] ID Lactic Ac Sepsis Rflx Plasma Lactic Acid Arsh 0.7 (0.7-2.0) mmol/L Calcium (8.4-10.2) mg/dL Phosphorus (2.5-4.5) mg/dL Magnesium (1.6-2.3) mg/dL Total Bilirubin (0.2-1.3) mg/dL AST (14-36) U/L ALT (4-34) U/L Alkaline Phosphatase (38-126) U/L Total Protein (6.3-8.2) g/dL Albumin (3.5-5.0) g/dL Urine Color Urine Appearance (Clear) Urine pH (5.0-8.0) Ur Specific [place] (1.001-1.035) Urine Protein (Negative) Urine Glucose (UA) (Negative) Urine Ketones (Negative) Urine Blood (Negative) Urine Nitrite (Negative) Urine Bilirubin (Negative) Urine Urobilinogen (<2.0) mg/dL Ur Leukocyte Esterase (Negative) Urine RBC (0-5) /hpf Urine WBC (0-5) /hpf Ur Squamous Epith Cells (0-4) /hpf Ur Transition Epith Cell (0-1) /hpf Calcium Oxalate Crystal (None) /hpf Urine Bacteria (None) /hpf Granular Casts (0) /lpf Urine Mucus (None) /hpf Urine Yeast (Budding) (None) /hpf Urine HCG, Qual (Not Detectd) Influenza Type A (PCR) (Not Detectd) Influenza Type B (PCR) (Not Detectd) RSV (PCR) (Not Detectd) SARS-CoV-2 (PCR) (Not Detectd) Disposition Clinical Impression: KAYLIN (acute kidney injury), Gastroenteritis Disposition: ADMITTED IP TO THIS [facility] Condition: Good Is patient prescribed a controlled substance at d/c from ED?: No Time of Disposition: 23:15 Decision Date: 11/21/24 Decision Time: 23:15
[2024-11-21 19:40] LABS: Glucose,Whole Blood 185 mg/dL (70-110)
[2024-11-21] MEDS: ACETAMINOPHEN TAB 500 MG TAB PO STA ×2 (19:45→22:53)
[2024-11-21 19:53] LABS: Basophils % (A) 0 %; Eosinophils # (A) 0.1 k/uL (0-0.7); Eosinophils % (A) 1 %; HCT 40.4 % (34.0-46.0); HGB 13.1 gm/dL (11.4-16.0); Lymphocytes # (A) 0.2 k/uL (1.0-4.8); Lymphocytes % (A) 2 %; MCH 32.3 pg (25.0-35.0); MCHC 32.4 g/dL (31.0-37.0); MCV 99.7 fL (80.0-100.0); Mean Platelet Volume 7.4; Monocytes # (A) 0.2 k/uL (0-1.0); Monocytes % (A) 2 %; Neutrophils % (A) 96 %; Platelet Count 347 k/uL (150-450); RBC 4.05 m/uL (3.80-5.40); RDW 13.7 % (11.5-15.5); WBC 13.6 k/uL (3.8-10.6)
[2024-11-21] MEDS: ONDANSETRON 4 MG/2 ML VIAL IVP STA (19:54)
[2024-11-21] MEDS: SODIUM CHLORIDE 0.9% 1,000 ML IV STA (19:56)
[2024-11-21 20:02] LABS: ALT 20 U/L (4-34); AST 18 U/L (14-36); African American GFR (CKD) 19 (>60 ml/min/1.73 sqM); Albumin 3.5 g/dL (3.5-5.0); Alkaline Phosphatase 82 U/L (38-126); Anion Gap 9 mmol/L; Blood Urea Nitrogen 62 mg/dL (7-17); Calcium 8.6 mg/dL (8.4-10.2); Carbon Dioxide 22 mmol/L (22-30); Chloride 102 mmol/L (98-107); Glucose 186 mg/dL (74-99); Magnesium 1.8 mg/dL (1.6-2.3); Non-African American GFR(CKD) 17 (>60 ml/min/1.73 sqM); Potassium 4.5 mmol/L (3.5-5.1); Sodium 133 mmol/L (137-145); Total Bilirubin 0.5 mg/dL (0.2-1.3); Total Protein 6.4 g/dL (6.3-8.2)
--- NOTE | 2024-11-21 20:04 | XR ---
EXAMINATION TYPE: XR chest 2V DATE OF EXAM: 11/21/2024 8:00 PM COMPARISON: 08/16/2021 CLINICAL INDICATION: Female, 34 years old with history of Cough, fever, TECHNIQUE: Frontal and lateral views of the chest are obtained. FINDINGS: There is no focal air space opacity, pleural effusion, or pneumothorax seen. The cardiac silhouette size is within normal limits. The osseous structures are intact. IMPRESSION: No acute cardiopulmonary process. [facility], , 11/21/2024 8:01 PM
[2024-11-21 20:37] LABS: Influenza A Not Detected (Not Detectd); Influenza B Not Detected (Not Detectd); RSV Not Detected (Not Detectd)
[2024-11-21 21:06] LABS: Appearance,Urine Cloudy (Clear); Bacteria,Urine Rare /hpf; Bilirubin,Urine Negative (Negative); Blood,Urine Small (Negative); Budding Yeast,Urine Occasional /hpf; Calcium Oxalate Crystals,Urine Rare /hpf; Color,Urine Light Yellow; Glucose,Urine (UA) 3+ (Negative); Granular Casts,Urine 17 /lpf (0); Ketones,Urine Negative (Negative); Leukocyte Esterase,Urine Negative (Negative); Mucus,Urine Rare /hpf; Nitrite,Urine Negative (Negative); PH, Urine 5.5 (5.0-8.0); Protein,Urine 3+ (Negative); RBC,Urine 5 /hpf (0-5); Specific Gravity,Urine 1.019 (1.001-1.035); Squamous Epithelial Cell,Urine 5 /hpf (0-4); Transitional Epi Cells,Urine <1 /hpf (0-1); Urobilinogen,Urine <2.0 mg/dL (<2.0); WBC,Urine 2 /hpf (0-5)
[2024-11-21 23:22] LABS: ALT 16 U/L (4-34); AST 14 U/L (14-36); African American GFR (CKD) 21 (>60 ml/min/1.73 sqM); Albumin 2.9 g/dL (3.5-5.0); Alkaline Phosphatase 73 U/L (38-126); Anion Gap 6 mmol/L; Blood Urea Nitrogen 60 mg/dL (7-17); Calcium 7.7 mg/dL (8.4-10.2); Carbon Dioxide 21 mmol/L (22-30); Chloride 105 mmol/L (98-107); Glucose 125 mg/dL (74-99); Non-African American GFR(CKD) 18 (>60 ml/min/1.73 sqM); Potassium 4.4 mmol/L (3.5-5.1); Sodium 132 mmol/L (137-145); Total Bilirubin 0.4 mg/dL (0.2-1.3); Total Protein 5.4 g/dL (6.3-8.2)
[2024-11-22] MEDS ORDERED: NALOXONE 0.4 MG/ML 1 ML VIAL IV PRN (00:35)
[2024-11-22] MEDS: SODIUM CHLORIDE 0.9% 1,000 ML IV SCH (01:23)
[2024-11-22] MEDS: ONDANSETRON 4 MG/2 ML VIAL IVP PRN (05:16)
[2024-11-22] MEDS: LEVOTHYROXINE 125 MCG TAB PO SCH (06:39)
[2024-11-22] MEDS: LEVOTHYROXINE 100 MCG TAB PO SCH (06:40)
--- NOTE | 2024-11-22 08:32 | P.HPIM ---
History of Present Illness This is a pleasant 34 years old female who presents because of persistent vomiting and diarrhea of 1 day duration Patient states her boyfriend have the same symptoms having dizziness and general She has history of recent section about 3 weeks ago it was uneventful. She still has mild vaginal bleeding since the procedure. But no other symptoms or discharge or itching. She is she has been vomiting several times she cannot count but here in the hospital she vomited twice and after given treatment once. But as above no abdominal pain. She has frequent bowel movement about twice per hour. She has little headache but denies any urinary symptoms like urgency or dysuria. No chest pain or dyspnea. She denies smoking alcohol or illicit drugs. She had low-grade fever of 100.8. She was tachycardic 115. CBC showing leukocytosis of 13.6. Creatinine above baseline 3.4 down to 3.1 with baseline 1.7-2.4. She follow-up with Dr. Jaquez as an outpatient LFTs are unremarkable Urinalysis showing glucosuria and proteinuria Influenza and COVID test were negative She had elevated lactic acid 2.7 came back to normal at 0.7 Chest x-ray is negative for acute process Patient currently placed on normal saline 75 mL/h Review of Systems Review of systems CONSTITUTIONAL: No fever, no malaise, no fatigue. HEENT: No recent visual problems or hearing problems. Denied any sore throat. CARDIOVASCULAR: No orthopnea, PND, no palpitations, no syncope. PULMONARY: No shortness of breath, no cough, no hemoptysis. GASTROINTESTINAL:no abdominal pain. Normoactive bowel sounds. NEUROLOGICAL: No headaches, no weakness, no numbness. HEMATOLOGICAL: Denies any bleeding or petechiae. GENITOURINARY: Denies any burning micturition, frequency, or urgency. MUSCULOSKELETAL/RHEUMATOLOGICAL: Denies any joint pain, swelling, or any muscle pain. ENDOCRINE: Denies any polyuria or polydipsia. Past Medical History Past Medical History: Diabetes Mellitus, Hypertension, Renal Disease, Thyroid Disorder Additional Past Medical History / Comment(s): CKD STAGE 4 History of Any Multi-Drug Resistant Organisms: MRSA Date of last positivie culture/infection: 03/26/18 MDRO Source:: WOUND Past Surgical History: Section, Tonsillectomy Additional Past Surgical History / Comment(s): tubal injection for infertility (current admission) laser eye b/l Past Anesthesia/Blood Transfusion Reactions: No Reported Reaction Past Psychological History: Anxiety, Depression Smoking Status: Never smoker Past Alcohol Use History: None Reported Past Drug Use History: None Reported - Past Family History Mother History Unknown: Yes Medications and Allergies Home Medications Medication Instructions Recorded Confirmed Type Ferrous Sulfate [Feosol] 650 mg PO DAILY 01/23/23 11/05/24 History Folic Acid 1 mg PO DAILY 01/23/23 11/05/24 History Insulin Lispro [humaLOG Kwikpen] 10 units SQ AC-TID 10/24/23 11/05/24 History Ergocalciferol [Vitamin D2 (1250 50,000 mcg PO WEEKLY 05/21/24 11/05/24 History Mcg = 06164 Iu)] Insulin Lispro [humaLOG Kwikpen] See Protocol SQ AC-TID 05/21/24 11/05/24 History NIFEdipine [Adalat CC] 90 mg PO BID 05/21/24 11/05/24 History Ondansetron Odt [Zofran Odt] 4 mg PO Q6H PRN 05/21/24 11/05/24 History hydrALAZINE HCL [Apresoline] 100 mg PO TID 05/21/24 11/05/24 History Vit No.179/Iron/Folic 1 each PO DAILY 07/14/24 11/05/24 History [ Tablet] Insulin Glargine,Hum.rec.anlog 15 units SQ PC-SUPPER 09/17/24 11/05/24 History [Lantus Solostar Pen] Insulin Glargine,Hum.rec.anlog 60 units SQ AC-BRKFST 09/17/24 11/05/24 History [Lantus Solostar Pen] Levothyroxine Sodium 225 mcg PO DAILY 09/17/24 11/05/24 History Allergies Allergy/AdvReac Type Severity Reaction Status Date / Time labetalol AdvReac Chest Pain Verified 11/21/24 18:47 Physical Exam Vitals: Vital Signs Temp Pulse Resp BP Pulse Ox 11/22/24 05:00 95 18 135/70 97 11/22/24 01:00 89 17 131/69 95 11/21/24 22:50 93 18 144/80 100 11/21/24 20:46 99.5 F 11/21/24 18:42 100.8 F H 115 H 18 144/85 97 Intake and Output 11/21/24 11/22/24 11/22/24 22:59 06:59 14:59 Other: Weight 103.419 kg Results CBC & Chem 7: 11/21/24 19:38 11/21/24 22:34 Labs: Abnormal Lab Results - Last 24 Hours (Table) 11/21/24 11/21/24 11/21/24 Range/Units 19:37 19:38 19:38 WBC 13.6 H (3.8-10.6) k/uL Neutrophils # 13.0 H (1.3-7.7) k/uL Lymphocytes # 0.2 L (1.0-4.8) k/uL Sodium 133 L (137-145) mmol/L Carbon Dioxide (22-30) mmol/L BUN 62 H (7-17) mg/dL Creatinine 3.47 H (0.52-1.04) mg/dL Glucose 186 H (74-99) mg/dL POC Glucose (mg/dL) 185 H (70-110) mg/dL Plasma Lactic Acid Arsh (0.7-2.0) mmol/L Calcium (8.4-10.2) mg/dL Total Protein (6.3-8.2) g/dL Albumin (3.5-5.0) g/dL Urine Appearance (Clear) Urine Protein (Negative) Urine Glucose (UA) (Negative) Urine Blood (Negative) Ur Squamous Epith Cells (0-4) /hpf Calcium Oxalate Crystal (None) /hpf Urine Bacteria (None) /hpf Urine Mucus (None) /hpf Urine Yeast (Budding) (None) /hpf 11/21/24 11/21/24 11/21/24 Range/Units 19:38 20:46 22:34 WBC (3.8-10.6) k/uL Neutrophils # (1.3-7.7) k/uL Lymphocytes # (1.0-4.8) k/uL Sodium 132 L (137-145) mmol/L Carbon Dioxide 21 L (22-30) mmol/L BUN 60 H (7-17) mg/dL Creatinine 3.17 H (0.52-1.04) mg/dL Glucose 125 H (74-99) mg/dL POC Glucose (mg/dL) (70-110) mg/dL Plasma Lactic Acid Arsh 2.7 H* (0.7-2.0) mmol/L Calcium 7.7 L (8.4-10.2) mg/dL Total Protein 5.4 L (6.3-8.2) g/dL Albumin 2.9 L (3.5-5.0) g/dL Urine Appearance Cloudy H (Clear) Urine Protein 3+ H (Negative) Urine Glucose (UA) 3+ H (Negative) Urine Blood Small H (Negative) Ur Squamous Epith Cells 5 H (0-4) /hpf Calcium Oxalate Crystal Rare H (None) /hpf Urine Bacteria Rare H (None) /hpf Urine Mucus Rare H (None) /hpf Urine Yeast (Budding) Occasional H (None) /hpf Assessment and Plan Assessment: Intractable vomiting and diarrhea could be secondary to acute gastroenteritis Dehydration secondary to above Recent section about 3 weeks prior to hospitalization Acute kidney injury on chronic kidney disease stage III-IV Diabetes mellitus Hypertension Hypothyroidism Plan: Continue with IV fluids ID team consult Check pro- Calcitonin, CRP Check for C. difficile Monitor creatinine Continue with Zofran as needed ID team consult Labs and medication were reviewed.. Continue same treatment. Continue with symptomatic treatment. Resume home medication. Monitor labs and vitals. DVT and GI prophylaxis. Further recommendations as per clinical course of the patient DVT prophylaxis: Subcutaneous heparin GI Prophylaxis: Pepcid PT/OT: Pending Prognosis is guarded
[2024-11-22 08:42] LABS: Glucose,Whole Blood 215 mg/dL (70-110)
[2024-11-22] MEDS: INSULIN LISPRO (HumaLOG) 100 UNIT/ML 10 mL VL SQ SCH ×2 (08:42→18:04)
[2024-11-22] MEDS: FAMOTIDINE 20 MG/2 ML VIAL IV SCH (08:43)
[2024-11-22] MEDS: hydrALAZINE HCL 50 MG TAB PO SCH (08:44)
[2024-11-22] MEDS: HEPARIN SODIUM,PORCINE 5,000 UNIT/ML 1 ML VIAL SQ SCH (08:44)
[2024-11-22] MEDS: NIFEdipine XL 90 MG TAB.ER.24 PO SCH (08:44)
[2024-11-22] MEDS: ACETAMINOPHEN TAB 500 MG TAB PO PRN (08:57)
[2024-11-22 15:44] LABS: Basophils % (A) 1 %; Eosinophils # (A) 0.2 k/uL (0-0.7); Eosinophils % (A) 4 %; HCT 35.8 % (34.0-46.0); HGB 11.8 gm/dL (11.4-16.0); Hypochromasia Slight; Lymphocytes # (A) 0.6 k/uL (1.0-4.8); Lymphocytes % (A) 10 %; MCH 33.5 pg (25.0-35.0); MCHC 32.9 g/dL (31.0-37.0); MCV 101.8 fL (80.0-100.0); Macrocytosis Slight; Mean Platelet Volume 7.9; Monocytes # (A) 0.3 k/uL (0-1.0); Monocytes % (A) 6 %; Neutrophils # (A) 4.2 k/uL (1.3-7.7); Neutrophils % (A) 77 %; Platelet Count 305 k/uL (150-450); RBC 3.52 m/uL (3.80-5.40); RDW 13.8 % (11.5-15.5); WBC 5.4 k/uL (3.8-10.6)
[2024-11-22 15:59] LABS: African American GFR (CKD) 19 (>60 ml/min/1.73 sqM); Anion Gap 10 mmol/L; Blood Urea Nitrogen 59 mg/dL (7-17); C Reactive Protein 5.5 mg/dL (<1.0); Calcium 7.7 mg/dL (8.4-10.2); Carbon Dioxide 17 mmol/L (22-30); Chloride 106 mmol/L (98-107); Glucose 135 mg/dL (74-99); Non-African American GFR(CKD) 17 (>60 ml/min/1.73 sqM); Potassium 4.1 mmol/L (3.5-5.1); Sodium 133 mmol/L (137-145)
[2024-11-22 17:03] LABS: Glucose,Whole Blood 155 mg/dL (70-110)
[2024-11-22] MEDS: LOPERAMIDE 2 MG CAP PO PRN (18:01)
[2024-11-22] MEDS: LOPERAMIDE 2 MG CAP PO STA (19:11)
[2024-11-22] MEDS ORDERED: INSULIN GLARGINE (LANTUS) 100 UNIT/ML SYR SQ SCH (21:00)
--- NOTE | 2024-11-22 21:12 | P.CONS ---
History of Present Illness - Reason for Consult Consult date: 11/22/24 Fever, high WBC Requesting physician: Harry E Sheet - Chief Complaint Nausea vomiting and diarrhea x 1 day - History of Present Illness Patient is a 34-year-old female with a past medical history of kidney for diabetes mellitus hypertension CKD stage IV anxiety depression presenting to the hospital for evaluation of nausea vomiting and diarrhea in this patient symptoms started the day before presentation to the hospital patient mention she woke up Friday morning with a feeling of nausea camacho to the bathroom and afterwards did have multiple episode of vomiting as well as diarrhea patient denies significant abdominal pain or any high-grade fever however she mention she felt cold with worsening symptoms patient did present to the hospital on arrival to the she did have a temperature of 100.8 F patient was tachycardic but not hypotensive or hypoxic or need for supplemental oxygen patient did have a white count of 13.6 with a left shift creatinine 3.17 urine has been negative influenza RSV COVID testing negative stool for C. difficile negative patient did have a chest x-ray that was reported negative for acute cardiopulmonary disease process patient did mention that her boyfriend did have a similar symptoms started before her who works in water treatment plant Review of Systems Positive point and negatives has been mentioned in the HPI, complete review of systems was performed and all other systems are negative Past Medical History Past Medical History: Diabetes Mellitus, Hypertension, Renal Disease, Thyroid Disorder Additional Past Medical History / Comment(s): CKD STAGE 4 History of Any Multi-Drug Resistant Organisms: MRSA Year Discovered:: 03/26/18 MDRO Source:: WOUND Past Surgical History: Section, Tonsillectomy Additional Past Surgical History / Comment(s): tubal injection for infertility (current admission) laser eye b/l Past Anesthesia/Blood Transfusion Reactions: No Reported Reaction Past Psychological History: Anxiety, Depression Smoking Status: Never smoker Past Alcohol Use History: None Reported Past Drug Use History: None Reported - Past Family History Mother History Unknown: Yes Medications and Allergies Home Medications Medication Instructions Recorded Confirmed Type Ferrous Sulfate [Feosol] 325 mg PO BID 01/23/23 11/22/24 History Folic Acid 1 mg PO DAILY 01/23/23 11/22/24 History Insulin Lispro [humaLOG Kwikpen] 5 units SQ AC-TID 10/24/23 11/22/24 History Ergocalciferol [Vitamin D2 (1250 1,250 mcg PO Q7D 05/21/24 11/22/24 History Mcg = 32081 Iu)] NIFEdipine [Adalat CC] 90 mg PO BID 05/21/24 11/22/24 History hydrALAZINE HCL [Apresoline] 100 mg PO Q8H 05/21/24 11/22/24 History Insulin Glargine,Hum.rec.anlog 15 units SQ DAILY 09/17/24 11/22/24 History [Lantus Solostar Pen] Albuterol Inhaler [Ventolin Hfa 2 puff INHALATION RT-Q8H PRN 11/22/24 11/22/24 History Inhaler] Levothyroxine Sodium [Synthroid] 112 mcg PO DAILY 11/22/24 11/22/24 History Metoprolol Succinate (ER) [Toprol 50 mg PO DAILY 11/22/24 11/22/24 History Xl] Sertraline [Zoloft] 50 mg PO DIRECTED 11/22/24 11/22/24 History Allergies Allergy/AdvReac Type Severity Reaction Status Date / Time labetalol AdvReac Chest Pain Verified 11/22/24 10:18 Physical Exam Vitals: Vital Signs Temp Pulse Resp BP Pulse Ox 11/22/24 05:00 95 18 135/70 97 11/22/24 01:00 89 17 131/69 95 11/21/24 22:50 93 18 144/80 100 11/21/24 20:46 99.5 F 11/21/24 18:42 100.8 F H 115 H 18 144/85 97 Intake and Output 11/21/24 11/22/24 11/22/24 22:59 06:59 14:59 Other: Weight 103.419 kg GENERAL DESCRIPTION: Middle-age female lying in bed, no distress. No tachypnea or accessory muscle of respiration use. HEENT: Shows Pallor , no scleral icterus. Oral mucous membrane is dry. NECK: Trachea central, no thyromegaly. LUNGS: Unlabored breathing. Clear to auscultation anteriorly. No wheeze or crackle. HEART: S1, S2, regular rate and rhythm. No loud murmur ABDOMEN: Soft, no tenderness , EXTREMITIES: No edema of feet. SKIN: No rash, no masses palpable. NEUROLOGICAL: The patient is awake, alert, oriented x3, mood and affect normal. Results CBC & Chem 7: 11/22/24 14:24 11/22/24 14:24 Labs: Abnormal Lab Results - Last 24 Hours (Table) 11/21/24 11/21/24 11/21/24 Range/Units 19:37 19:38 19:38 WBC 13.6 H (3.8-10.6) k/uL Neutrophils # 13.0 H (1.3-7.7) k/uL Lymphocytes # 0.2 L (1.0-4.8) k/uL Sodium 133 L (137-145) mmol/L Carbon Dioxide (22-30) mmol/L BUN 62 H (7-17) mg/dL Creatinine 3.47 H (0.52-1.04) mg/dL Glucose 186 H (74-99) mg/dL POC Glucose (mg/dL) 185 H (70-110) mg/dL Plasma Lactic Acid Arsh (0.7-2.0) mmol/L Calcium (8.4-10.2) mg/dL Total Protein (6.3-8.2) g/dL Albumin (3.5-5.0) g/dL Urine Appearance (Clear) Urine Protein (Negative) Urine Glucose (UA) (Negative) Urine Blood (Negative) Ur Squamous Epith Cells (0-4) /hpf Calcium Oxalate Crystal (None) /hpf Urine Bacteria (None) /hpf Urine Mucus (None) /hpf Urine Yeast (Budding) (None) /hpf 11/21/24 11/21/24 11/21/24 Range/Units 19:38 20:46 22:34 WBC (3.8-10.6) k/uL Neutrophils # (1.3-7.7) k/uL Lymphocytes # (1.0-4.8) k/uL Sodium 132 L (137-145) mmol/L Carbon Dioxide 21 L (22-30) mmol/L BUN 60 H (7-17) mg/dL Creatinine 3.17 H (0.52-1.04) mg/dL Glucose 125 H (74-99) mg/dL POC Glucose (mg/dL) (70-110) mg/dL Plasma Lactic Acid Arsh 2.7 H* (0.7-2.0) mmol/L Calcium 7.7 L (8.4-10.2) mg/dL Total Protein 5.4 L (6.3-8.2) g/dL Albumin 2.9 L (3.5-5.0) g/dL Urine Appearance Cloudy H (Clear) Urine Protein 3+ H (Negative) Urine Glucose (UA) 3+ H (Negative) Urine Blood Small H (Negative) Ur Squamous Epith Cells 5 H (0-4) /hpf Calcium Oxalate Crystal Rare H (None) /hpf Urine Bacteria Rare H (None) /hpf Urine Mucus Rare H (None) /hpf Urine Yeast (Budding) Occasional H (None) /hpf 11/22/24 Range/Units 08:40 WBC (3.8-10.6) k/uL Neutrophils # (1.3-7.7) k/uL Lymphocytes # (1.0-4.8) k/uL Sodium (137-145) mmol/L Carbon Dioxide (22-30) mmol/L BUN (7-17) mg/dL Creatinine (0.52-1.04) mg/dL Glucose (74-99) mg/dL POC Glucose (mg/dL) 215 H (70-110) mg/dL Plasma Lactic Acid Arsh (0.7-2.0) mmol/L Calcium (8.4-10.2) mg/dL Total Protein (6.3-8.2) g/dL Albumin (3.5-5.0) g/dL Urine Appearance (Clear) Urine Protein (Negative) Urine Glucose (UA) (Negative) Urine Blood (Negative) Ur Squamous Epith Cells (0-4) /hpf Calcium Oxalate Crystal (None) /hpf Urine Bacteria (None) /hpf Urine Mucus (None) /hpf Urine Yeast (Budding) (None) /hpf Assessment and Plan (1) SIRS (systemic inflammatory response syndrome) Current Visit: Yes Status: Acute Code(s): R65.10 - SIRS OF NON-INFECTIOUS ORIGIN W/O ACUTE ORGAN DYSFUNCTION SNOMED Code(s): 665908456 (2) Gastroenteritis Current Visit: Yes Status: Acute Code(s): K52.9 - NONINFECTIVE GASTROENTERITIS AND COLITIS, UNSPECIFIED SNOMED Code(s): 64332525 Plan: 1patient presented to hospital with acute nausea vomiting and diarrhea in this patient who did have a fever elevated white count concerning for possible bacterial etiology with boyfriend having the same symptoms prior to her 2-we will check stool culture 3-empirically at [facility] while waiting for the workup to be com pleted We will follow on clinical condition and cultures to further adjust medication if needed Thank you for this consultation we will follow the patient along with you Dictation was produced using [employer] dictation software. please excuse any grammatical, word or spelling errors. Time with Patient: Greater than 30
[2024-11-22 21:49] LABS: Glucose,Whole Blood 122 mg/dL (70-110)
[2024-11-22] MEDS: metroNIDAZOLE 500 MG TAB PO SCH (23:14)
[2024-11-23 06:03] LABS: Glucose,Whole Blood 123 mg/dL (70-110)
[2024-11-23] MEDS: LEVOTHYROXINE 112 MCG TAB PO SCH (06:57)
[2024-11-23 08:21] LABS: Basophils # (A) 0.04 X 10*3/uL (0.00-0.10); Basophils % (A) 0.7 %; Eosinophils # (A) 0.27 X 10*3/uL (0.04-0.35); Eosinophils % (A) 4.6 %; HGB 9.9 g/dL (12.0-15.0); Lymphocytes # (A) 1.05 X 10*3/uL (0.90-5.00); Lymphocytes % (A) 17.7 %; MCH 33.1 pg (27.0-32.0); MCHC 31.9 g/dL (32.0-37.0); MCV 103.7 FL (80.0-97.0); Mean Platelet Volume 10.6 FL (9.5-12.2); Monocytes # (A) 0.53 X 10*3/uL (0.20-1.00); NRBC Per 100 WBC 0 X 10*3/uL (0.00-0.01); Neutrophils # (A) 3.81 X 10*3/uL (1.80-7.70); Neutrophils % (A) 64.3 %; Platelet Count 268 X 10*3/uL (140-440); RBC 2.99 X 10*6/uL (4.10-5.20); RDW 13.6 % (11.5-14.5); WBC 5.92 X 10*3/uL (4.50-10.00)
[2024-11-23 08:45] LABS: Blood Urea Nitrogen 50.7 mg/dL (9.0-27.0); Calcium 6.8 mg/dL (8.7-10.3); Carbon Dioxide 17.5 mmol/L (21.6-31.8); Chloride 113 mmol/L (96-109); Glucose 127 mg/dL (70-110); Potassium 4.1 mmol/L (3.5-5.5); Sodium 140 mmol/L (135-145)
[2024-11-23] MEDS: FAMOTIDINE 20 MG/2 ML VIAL IV SCH (08:46)
--- NOTE | 2024-11-23 11:20 | P.NPCON ---
History of Present Illness - Reason for Consult acute renal failure, chronic renal failure - History of Present Illness Reason for consultation: Acute kidney injury on chronic kidney disease History of present illness: Patient is a 34-year-old female seen in renal consultation for acute kidney injury on chronic kidney disease. Patient has chronic kidney disease stage IIIb with baseline creatinine near 2 secondary to biopsy-proven diabetic kidney disease. Creatinine on admission was 3.4 and is 3.7 today. Patient came to the hospital due to nausea vomiting and diarrhea going on since early Friday m ulices. Patient states she did having profuse diarrhea for the last 2 days. Oral intake has been poor. She denies use of nonsteroidals. She is currently on normal saline at 75 cc an hour. C. difficile was negative. She denies sick contacts. Denies chest pain or shortness of breath. No edema. No gross hematuria or dysuria. Denies history of coronary artery disease. She does have longstanding history of diabetes. Vital signs are stable. General: No acute distress. HEENT: Head exam is unremarkable. LUNGS: No audible rhonchi or wheezes. HEART: Rate and Rhythm are regular. ABDOMEN: Nontender. EXTREMITITES: No edema. Past Medical History Past Medical History: Diabetes Mellitus, Hypertension, Renal Disease, Thyroid Disorder Additional Past Medical History / Comment(s): CKD STAGE 4 History of Any Multi-Drug Resistant Organisms: MRSA Date of last positivie culture/infection: 03/26/18 MDRO Source:: WOUND Past Surgical History: Section, Tonsillectomy Additional Past Surgical History / Comment(s): tubal injection for infertility (current admission) laser eye b/l Past Anesthesia/Blood Transfusion Reactions: No Reported Reaction Past Psychological History: Anxiety, Depression Smoking Status: Never smoker Past Alcohol Use History: None Reported Past Drug Use History: None Reported - Past Family History Mother History Unknown: Yes Medications and Allergies Home Medications Medication Instructions Recorded Confirmed Type Ferrous Sulfate [Feosol] 325 mg PO BID 01/23/23 11/22/24 History Folic Acid 1 mg PO DAILY 01/23/23 11/22/24 History Insulin Lispro [humaLOG Kwikpen] 5 units SQ AC-TID 10/24/23 11/22/24 History Ergocalciferol [Vitamin D2 (1250 1,250 mcg PO Q7D 05/21/24 11/22/24 History Mcg = 52657 Iu)] NIFEdipine [Adalat CC] 90 mg PO BID 05/21/24 11/22/24 History hydrALAZINE HCL [Apresoline] 100 mg PO Q8H 05/21/24 11/22/24 History Insulin Glargine,Hum.rec.anlog 15 units SQ DAILY 09/17/24 11/22/24 History [Lantus Solostar Pen] Albuterol Inhaler [Ventolin Hfa 2 puff INHALATION RT-Q8H PRN 11/22/24 11/22/24 History Inhaler] Levothyroxine Sodium [Synthroid] 112 mcg PO DAILY 11/22/24 11/22/24 History Metoprolol Succinate (ER) [Toprol 50 mg PO DAILY 11/22/24 11/22/24 History Xl] Sertraline [Zoloft] 50 mg PO DIRECTED 11/22/24 11/22/24 History Allergies Allergy/AdvReac Type Severity Reaction Status Date / Time labetalol AdvReac Chest Pain Verified 11/22/24 10:18 Physical Exam Vitals: Vital Signs Temp Pulse Pulse Resp BP BP Pulse Ox 11/23/24 07:00 98.8 F 99 18 131/70 98 11/23/24 00:34 99.5 F 100 17 124/70 99 11/22/24 21:50 106 H 11/22/24 21:46 98.2 F 106 H 18 133/65 98 11/22/24 20:58 98.7 F 100 18 125/77 98 11/22/24 20:09 100 18 111/51 98 11/22/24 18:05 83 19 128/77 97 11/22/24 15:52 89 18 116/60 97 11/22/24 14:05 98.1 F 91 20 123/71 97 Intake and Output 11/22/24 11/23/24 11/23/24 22:59 06:59 14:59 Other: Voiding Method Toilet Toilet # Voids 2 # Bowel Movements 1 Weight 103.419 kg Results - Lab Results Most recent lab results Calcium 6.8 mg/dL (8.7-10.3) L 11/23/24 05:20 Phosphorus 3.0 mg/dL (2.5-4.5) 11/21/24 19:38 Magnesium 1.8 mg/dL (1.6-2.3) 11/21/24 19:38 11/23/24 05:20 11/23/24 05:20 Assessment and Plan Plan: Assessment: 1. Acute kidney injury secondary to ATN secondary to hypovolemia. Creatinine 3.7 today. 2. Chronic kidney disease stage IIIb with baseline creatinine near 2 secondary to diabetic kidney disease. 3. Nausea vomiting and diarrhea possibly from viral gastroenteritis. C. difficile negative. Also tested negative for influenza, RSV and COVID. 4. Metabolic acidosis secondary to acute kidney injury and GI losses. 5. Hypertension with chronic kidney disease. 6. Diabetes mellitus. Plan: Change IV fluids to bicarb drip. Increase rate to 100 cc an hour. Encouraged oral intake. Avoid nephrotoxins. Continue to monitor renal function and urine output. Check renal ultrasound. Thank you for the consultation. I will continue to follow the patient with you during her hospital stay.
[2024-11-23] MEDS: DEXTROSE 5% IN WATER 1,000 ML with SODIUM BICARB (1 MEQ/ML) 150 ML IV SCH (11:56)
--- NOTE | 2024-11-23 12:05 | US ---
EXAMINATION TYPE: US kidneys/renal and bladder DATE OF EXAM: 11/23/2024 COMPARISON: US ( 10/23/2022) CLINICAL INDICATION: Female, 34 years old with history of arya; TECHNIQUE: Grayscale imaging of the bilateral kidneys and urinary bladder: FINDINGS: EXAM MEASUREMENTS: Right Kidney: 11.6x4.9x5.6 cm Left Kidney: 11.5x5.1x5.4 cm slightly limited exam due to pt body habitus & overlying bowel Right Kidney: No hydronephrosis or masses seen Left Kidney: mild calcifications seen, w/o posterior shadowing Bladder: ?slightly thickened wall: 0.6cm Bilateral Jets seen: Yes Pt had just voided prior to exam Suboptimal study. IMPRESSION: No hydronephrosis is noted bilaterally. [facility], , 11/23/2024 12:03 PM
[2024-11-23 12:44] LABS: Glucose,Whole Blood 149 mg/dL (70-110)
[2024-11-23] MEDS: INSULIN LISPRO (HumaLOG) 100 UNIT/ML 10 mL VL SQ SCH (13:03)
[2024-11-23] MEDS: INSULIN GLARGINE (LANTUS) 100 UNIT/ML SYR SQ SCH (13:10)
--- NOTE | 2024-11-23 15:51 | P.PN ---
Subjective Progress Note Date: 11/23/24 Principal diagnosis: Reason for follow-up is fever/gastroenteritis Patient is a 34-year-old female with a past medical history of kidney for diabetes mellitus hypertension CKD stage IV anxiety depression presenting to the hospital for evaluation of nausea vomiting and diarrhea patient also have low-grade fever elevated white count probably this consultation. On today's evaluation that is 11/23/2024, Patient did have resolution of her fever and is afebrile this morning, patient denies having any chest pain shortness of breath or cough, the patient is currently on room air, patient still complaining of some nausea but no further vomiting still having diarrhea and crampy abdominal pain associated with episode of diarrhea. The patient white count is 5.92, creatinine 3.7 stool cultures currently pending Objective - Vital Signs Vital signs: Vital Signs Temp 98.8 F 11/23/24 07:00 Pulse 99 11/23/24 07:00 Resp 18 11/23/24 07:00 BP 131/70 11/23/24 07:00 Pulse Ox 98 11/23/24 07:00 FiO2 Intake & Output 11/22/24 11/23/24 11/23/24 18:59 06:59 18:59 Weight 103.419 kg Other: Voiding Method Toilet Toilet # Voids 2 # Bowel Movements 1 - Exam GENERAL DESCRIPTION: Middle-age female lying in bed in no distress RESPIRATORY SYSTEM: Unlabored breathing , decreased breath sounds at bases HEART: S1 S2 regular rate and rhythm , ABDOMEN: Soft , no tenderness EXTREMITIES: No edema feet - Labs CBC & Chem 7: 11/23/24 05:20 11/23/24 05:20 Labs: Abnormal Lab Results - Last 24 Hours (Table) 11/22/24 11/22/24 11/22/24 Range/Units 14:24 14:24 17:01 RBC 3.52 L (3.80-5.40) m/uL Hgb (12.0-15.0) g/dL Hct (37.2-46.3) % MCV 101.8 H (80.0-100.0) fL MCH (27.0-32.0) pg MCHC (32.0-37.0) g/dL Immature Gran # (0.00-0.04) X 10*3/uL Lymphocytes # 0.6 L (1.0-4.8) k/uL Sodium 133 L (137-145) mmol/L Chloride (96-109) mmol/L Carbon Dioxide 17 L (22-30) mmol/L BUN 59 H (7-17) mg/dL Creatinine 3.43 H (0.52-1.04) mg/dL Est GFR (CKD-EPI) (>=60) Glucose 135 H (74-99) mg/dL POC Glucose (mg/dL) 155 H (70-110) mg/dL Calcium 7.7 L (8.4-10.2) mg/dL C-Reactive Protein 5.5 H (<1.0) mg/dL 11/22/24 11/23/24 11/23/24 Range/Units 21:47 05:20 05:20 RBC 2.99 L (3.80-5.40) m/uL Hgb 9.9 L (12.0-15.0) g/dL Hct 31.0 L (37.2-46.3) % MCV 103.7 H (80.0-100.0) fL MCH 33.1 H (27.0-32.0) pg MCHC 31.9 L (32.0-37.0) g/dL Immature Gran # 0.22 H (0.00-0.04) X 10*3/uL Lymphocytes # (1.0-4.8) k/uL Sodium (137-145) mmol/L Chloride 113 H (96-109) mmol/L Carbon Dioxide 17.5 L (22-30) mmol/L BUN 50.7 H (7-17) mg/dL Creatinine 3.7 H (0.52-1.04) mg/dL Est GFR (CKD-EPI) 16 L (>=60) Glucose 127 H (74-99) mg/dL POC Glucose (mg/dL) 122 H (70-110) mg/dL Calcium 6.8 L (8.4-10.2) mg/dL C-Reactive Protein (<1.0) mg/dL 11/23/24 11/23/24 Range/Units 06:02 12:43 RBC (3.80-5.40) m/uL Hgb (12.0-15.0) g/dL Hct (37.2-46.3) % MCV (80.0-100.0) fL MCH (27.0-32.0) pg MCHC (32.0-37.0) g/dL Immature Gran # (0.00-0.04) X 10*3/uL Lymphocytes # (1.0-4.8) k/uL Sodium (137-145) mmol/L Chloride (96-109) mmol/L Carbon Dioxide (22-30) mmol/L BUN (7-17) mg/dL Creatinine (0.52-1.04) mg/dL Est GFR (CKD-EPI) (>=60) Glucose (74-99) mg/dL POC Glucose (mg/dL) 123 H 149 H (70-110) mg/dL Calcium (8.4-10.2) mg/dL C-Reactive Protein (<1.0) mg/dL Assessment and Plan (1) SIRS (systemic inflammatory response syndrome) Current Visit: Yes Status: Acute Code(s): R65.10 - SIRS OF NON-INFECTIOUS ORIGIN W/O ACUTE ORGAN DYSFUNCTION SNOMED Code(s): 736532899 (2) Gastroenteritis Current Visit: Yes Status: Acute Code(s): K52.9 - NONINFECTIVE GASTROENTERITIS AND COLITIS, UNSPECIFIED SNOMED Code(s): 19342663 Plan: 1patient presented to hospital with acute nausea vomiting and diarrhea in this patient who did have a fever elevated white count concerning for possible bacterial etiology with boyfriend having the same symptoms prior to her 2-stool culture repeat currently pending 3-patient did have resolution of fever white count normalized to continue Rocephin and Flagyl while waiting for the workup to be completed Dictation was produced using [email or web address] dictation software. please excuse any grammatical, word or spelling errors. Time with Patient: Less than 30
[2024-11-23 17:56] LABS: Glucose,Whole Blood 174 mg/dL (70-110)
[2024-11-23 21:18] LABS: Glucose,Whole Blood 170 mg/dL (70-110)
--- NOTE | 2024-11-24 00:09 | P.PN ---
Subjective This is a pleasant 34 years old female who presents because of persistent vomiting and diarrhea of 1 day duration Patient states her boyfriend have the same symptoms having dizziness and general She has history of recent section about 3 weeks ago it was uneventful. She still has mild vaginal bleeding since the procedure. But no other symptoms or discharge or itching. She is she has been vomiting several times she cannot count but here in the hospital she vomited twice and after given treatment once. But as above no abdominal pain. She has frequent bowel movement about twice per hour. She has little headache but denies any urinary symptoms like urgency or dysuria. No chest pain or dyspnea. She denies smoking alcohol or illicit drugs. She had low-grade fever of 100.8. She was tachycardic 115. CBC showing leukocytosis of 13.6. Creatinine above baseline 3.4 down to 3.1 with baseline 1.7-2.4. She follow-up with Dr. Jaquez as an outpatient LFTs are unremarkable Urinalysis showing glucosuria and proteinuria Influenza and COVID test were negative She had elevated lactic acid 2.7 came back to normal at 0.7 Chest x-ray is negative for acute process Patient currently placed on normal saline 75 mL/h 11/23 Patient still complaining from abdominal pain about 8-9 She has poor appetite She still has diarrhea today Creatinine is a 3.7 compared to 3.4 on admission. Hemoglobin 9.9 She had renal ultrasound showing no evidence of hydronephrosis She is kept on ceftriaxone and Flagyl IV fluids are switched to sodium bicarb at 100 mL/h Review of systems CONSTITUTIONAL: No fever, no malaise, no fatigue. HEENT: No recent visual problems or hearing problems. Denied any sore throat. CARDIOVASCULAR: No orthopnea, PND, no palpitations, no syncope. PULMONARY: No shortness of breath, no cough, no hemoptysis. GENITOURINARY: Denies any burning micturition, frequency, or urgency. MUSCULOSKELETAL/RHEUMATOLOGICAL: Denies any joint pain, swelling, or any muscle pain. ENDOCRINE: Denies any polyuria or polydipsia. Active Medications Generic Name Dose Route Start Last Admin Trade Name Freq PRN Reason Stop Dose Admin Acetaminophen 1,000 mg 11/22/24 00:35 11/23/24 20:31 Acetaminophen Tab 500 Mg Tab PO 1,000 mg Q6HR PRN Administration Mild Pain or Fever > 100.5 Famotidine 20 mg 11/23/24 09:00 11/23/24 08:46 Famotidine 20 Mg/2 Ml Vial IV 20 mg Q24HR [facility] Administration Heparin Sodium (Porcine) 5,000 unit 11/22/24 09:00 11/23/24 20:26 Heparin Sodium,Porcine 5,000 Unit/Ml 1 Ml Vial SQ 5,000 unit Q12HR CALEB Administration Hydralazine HCl 100 mg 11/22/24 09:00 11/23/24 20:26 Hydralazine Hcl 50 Mg Tab PO 100 mg TID CALEB Administration Ceftriaxone Sodium 2 gm/ 50 mls @ 100 mls/hr 11/22/24 16:30 11/23/24 15:51 Sodium Chloride IVPB 100 mls/hr Q24H [facility] Administration Protocol Sodium Bicarbonate 150 ml/ 1,150 mls @ 100 mls/hr 11/23/24 11:30 11/23/24 11:56 Dextrose/Water IV 100 mls/hr .[id number] CALEB Administration Insulin Human Lispro 0 unit 11/23/24 12:30 11/23/24 18:15 Insulin Lispro (Humalog) 100 Unit/Ml 10 Ml Vl SQ 2 unit AC-TID [facility] Administration Protocol Levothyroxine Sodium 112 mcg 11/23/24 06:30 11/23/24 06:57 Levothyroxine 112 Mcg Tab PO 112 mcg DAILY@0630 [facility] Administration Loperamide HCl 2 mg 11/22/24 17:56 11/23/24 13:03 Loperamide 2 Mg Cap PO 2 mg QID PRN Administration Diarrhea Metronidazole 500 mg 11/22/24 22:00 11/23/24 20:26 Metronidazole 500 Mg Tab PO 500 mg TID [facility] Administration Protocol Naloxone HCl 0.2 mg 11/22/24 00:35 Naloxone 0.4 Mg/Ml 1 Ml Vial IV Q2M PRN Opioid Reversal Nifedipine 90 mg 11/22/24 09:00 11/23/24 20:26 Nifedipine Xl 90 Mg Tab.Er.24 PO 90 mg BID CALEB Administration Ondansetron HCl 4 mg 11/22/24 00:35 11/23/24 15:58 Ondansetron 4 Mg/2 Ml Vial IVP 4 mg Q8HR PRN Administration Nausea And Vomiting Objective - Vital Signs Vital signs: Vital Signs Temp 98.8 F 11/23/24 07:00 Pulse 99 11/23/24 07:00 Resp 18 11/23/24 07:00 BP 131/70 11/23/24 07:00 Pulse Ox 98 11/23/24 07:00 FiO2 Intake & Output 11/22/24 11/23/24 11/23/24 18:59 06:59 18:59 Weight 103.419 kg Other: Voiding Method Toilet Toilet # Voids 2 # Bowel Movements 1 - Exam GENERAL: The patient is alert and oriented x3, not in any acute distress. Well developed, well nourished. HEENT: Pupils are round and equally reacting to light. EOMI. No scleral icterus. No conjunctival pallor. Normocephalic, atraumatic. No pharyngeal erythema. No thyromegaly. CARDIOVASCULAR: S1 and S2 present. No murmurs, rubs, or gallops. PULMONARY: Chest is clear to auscultation, no wheezing , no crackles. -ABDOMEN: Soft, mild generalized tenderness, no guarding, no rebound tenderness, nondistended, normoactive bowel sounds. No palpable organomegaly. MUSCULOSKELETAL: No joint swelling or deformity. EXTREMITIES: No cyanosis, clubbing, or pedal edema. NEUROLOGICAL: Gross neurological examination did not reveal any focal deficits. SKIN: No rashes. no petechiae. - Labs CBC & Chem 7: 11/23/24 05:20 11/23/24 05:20 Labs: Abnormal Lab Results - Last 24 Hours (Table) 11/22/24 11/22/24 11/22/24 Range/Units 14:24 14:24 17:01 RBC 3.52 L (3.80-5.40) m/uL Hgb (12.0-15.0) g/dL Hct (37.2-46.3) % MCV 101.8 H (80.0-100.0) fL MCH (27.0-32.0) pg MCHC (32.0-37.0) g/dL Immature Gran # (0.00-0.04) X 10*3/uL Lymphocytes # 0.6 L (1.0-4.8) k/uL Sodium 133 L (137-145) mmol/L Chloride (96-109) mmol/L Carbon Dioxide 17 L (22-30) mmol/L BUN 59 H (7-17) mg/dL Creatinine 3.43 H (0.52-1.04) mg/dL Est GFR (CKD-EPI) (>=60) Glucose 135 H (74-99) mg/dL POC Glucose (mg/dL) 155 H (70-110) mg/dL Calcium 7.7 L (8.4-10.2) mg/dL C-Reactive Protein 5.5 H (<1.0) mg/dL 11/22/24 11/23/24 11/23/24 Range/Units 21:47 05:20 05:20 RBC 2.99 L (3.80-5.40) m/uL Hgb 9.9 L (12.0-15.0) g/dL Hct 31.0 L (37.2-46.3) % MCV 103.7 H (80.0-100.0) fL MCH 33.1 H (27.0-32.0) pg MCHC 31.9 L (32.0-37.0) g/dL Immature Gran # 0.22 H (0.00-0.04) X 10*3/uL Lymphocytes # (1.0-4.8) k/uL Sodium (137-145) mmol/L Chloride 113 H (96-109) mmol/L Carbon Dioxide 17.5 L (22-30) mmol/L BUN 50.7 H (7-17) mg/dL Creatinine 3.7 H (0.52-1.04) mg/dL Est GFR (CKD-EPI) 16 L (>=60) Glucose 127 H (74-99) mg/dL POC Glucose (mg/dL) 122 H (70-110) mg/dL Calcium 6.8 L (8.4-10.2) mg/dL C-Reactive Protein (<1.0) mg/dL 11/23/24 Range/Units 06:02 RBC (3.80-5.40) m/uL Hgb (12.0-15.0) g/dL Hct (37.2-46.3) % MCV (80.0-100.0) fL MCH (27.0-32.0) pg MCHC (32.0-37.0) g/dL Immature Gran # (0.00-0.04) X 10*3/uL Lymphocytes # (1.0-4.8) k/uL Sodium (137-145) mmol/L Chloride (96-109) mmol/L Carbon Dioxide (22-30) mmol/L BUN (7-17) mg/dL Creatinine (0.52-1.04) mg/dL Est GFR (CKD-EPI) (>=60) Glucose (74-99) mg/dL POC Glucose (mg/dL) 123 H (70-110) mg/dL Calcium (8.4-10.2) mg/dL C-Reactive Protein (<1.0) mg/dL Assessment and Plan Assessment: Intractable vomiting and diarrhea could be secondary to acute gastroenteritis, could be viral versus bacterial Dehydration secondary to above Acute kidney injury on chronic kidney disease stage III-IV Metabolic acidosis secondary to above Recent section about 3 weeks prior to hospitalization Diabetes mellitus Hypertension Hypothyroidism Plan: Continue with IV fluids ID team consult Monitor creatinine Nephrology team consult Continue with Zofran as needed Labs and medication were reviewed.. Continue same treatment. Continue with symptomatic treatment. Resume home medication. Monitor labs and vitals. DVT and GI prophylaxis. Further recommendations as per clinical course of the patient DVT prophylaxis: Subcutaneous heparin GI Prophylaxis: Pepcid Prognosis is guarded
[2024-11-24 06:17] LABS: Glucose,Whole Blood 150 mg/dL (70-110)
[2024-11-24 08:42] LABS: Magnesium 1.6 mg/dL (1.5-2.4)
[2024-11-24 08:56] LABS: BUN/Creat Ratio 11.47 Ratio (12.00-20.00); Blood Urea Nitrogen 36.7 mg/dL (9.0-27.0); Calcium 6.4 mg/dL (8.7-10.3); Carbon Dioxide 19.3 mmol/L (21.6-31.8); Chloride 111 mmol/L (96-109); Glucose 149 mg/dL (70-110); Potassium 3.5 mmol/L (3.5-5.5); Sodium 140 mmol/L (135-145)
--- NOTE | 2024-11-24 11:02 | P.PN ---
Subjective Patient is seen in follow-up for acute kidney injury on chronic kidney disease. Renal function better. Still having loose bowel movements. Starting to tolerate oral intake. Vital signs are stable. General: No acute distress. HEENT: Head exam is unremarkable. LUNGS: No audible rhonchi or wheezes. HEART: Rate and Rhythm are regular. ABDOMEN: Nontender. EXTREMITITES: No edema. Objective - Vital Signs Vital signs: Vital Signs Temp 98.2 F 11/24/24 07:52 Pulse 79 11/24/24 07:52 Resp 16 11/24/24 07:52 BP 167/82 11/24/24 07:52 Pulse Ox 98 11/24/24 07:52 FiO2 Intake & Output 11/23/24 11/24/24 11/24/24 18:59 06:59 18:59 Intake Total 118 Balance 118 Intake: Oral 118 Other: Voiding Method Toilet Toilet Toilet # Voids 3 1 # Bowel Movements 2 - Labs CBC & Chem 7: 11/23/24 05:20 11/24/24 04:23 Labs: Abnormal Lab Results - Last 24 Hours (Table) 11/22/24 11/23/24 11/23/24 Range/Units 05:20 12:43 17:55 Chloride (96-109) mmol/L Carbon Dioxide (21.6-31.8) mmol/L BUN (9.0-27.0) mg/dL Creatinine (0.6-1.5) mg/dL Est GFR (CKD-EPI) (>=60) BUN/Creatinine Ratio (12.00-20.00) Ratio Glucose (70-110) mg/dL POC Glucose (mg/dL) 149 H 174 H (70-110) mg/dL Calcium (8.7-10.3) mg/dL Procalcitonin 0.56 H (0.02-0.50) ng/mL 11/23/24 11/24/24 11/24/24 Range/Units 21:16 04:23 06:16 Chloride 111 H (96-109) mmol/L Carbon Dioxide 19.3 L (21.6-31.8) mmol/L BUN 36.7 H (9.0-27.0) mg/dL Creatinine 3.2 H (0.6-1.5) mg/dL Est GFR (CKD-EPI) 19 L (>=60) BUN/Creatinine Ratio 11.47 L (12.00-20.00) Ratio Glucose 149 H (70-110) mg/dL POC Glucose (mg/dL) 170 H 150 H (70-110) mg/dL Calcium 6.4 A* (8.7-10.3) mg/dL Procalcitonin (0.02-0.50) ng/mL Microbiology - Last 24 Hours (Table) 11/22/24 13:57 Stool Culture - Preliminary Stool Assessment and Plan Plan: Assessment: 1. Acute kidney injury secondary to ATN secondary to hypovolemia. Creatinine peaked at 3.7 this admission and is 3.2 today. No hydronephrosis noted on imaging. 2. Chronic kidney disease stage IIIb with baseline creatinine near 2 secondary to diabetic kidney disease. 3. Nausea vomiting and diarrhea possibly from viral gastroenteritis. C. difficile negative. Also tested negative for influenza, RSV and COVID. 4. Metabolic acidosis secondary to acute kidney injury and GI losses. Improved with bicarb drip. 5. Hypertension with chronic kidney disease. 6. Diabetes mellitus. Plan: Maintain bicarb drip for now. Replace potassium. Encouraged oral intake. Avoid nephrotoxins. Continue to monitor renal function and urine output.
[2024-11-24] MEDS: CALCIUM GLUCONATE IN NACL 2 GM in SALINE 1 100ML.BAG IVPB ONE (11:35)
[2024-11-24] MEDS: SERTRALINE 50 MG TAB PO SCH (11:36)
[2024-11-24] MEDS: POTASSIUM CHLORIDE ER 20 MEQ TAB.ER PO STA (11:36)
[2024-11-24 12:14] LABS: Glucose,Whole Blood 161 mg/dL (70-110)
[2024-11-24] MEDS: hydrALAZINE HCL 20 MG/ML 1 ML VIAL IVP PRN (12:29)
[2024-11-24] MEDS: MAGNESIUM SULFATE-D5W PMX 1 GM in DEXTROSE/WATER 1 100ML.BAG IVPB SCH (12:30)
--- NOTE | 2024-11-24 13:29 | P.PN ---
Subjective This is a pleasant 34 years old female who presents because of persistent vomiting and diarrhea of 1 day duration Patient states her boyfriend have the same symptoms having dizziness and general She has history of recent section about 3 weeks ago it was uneventful. She still has mild vaginal bleeding since the procedure. But no other symptoms or discharge or itching. She is she has been vomiting several times she cannot count but here in the hospital she vomited twice and after given treatment once. But as above no abdominal pain. She has frequent bowel movement about twice per hour. She has little headache but denies any urinary symptoms like urgency or dysuria. No chest pain or dyspnea. She denies smoking alcohol or illicit drugs. She had low-grade fever of 100.8. She was tachycardic 115. CBC showing leukocytosis of 13.6. Creatinine above baseline 3.4 down to 3.1 with baseline 1.7-2.4. She follow-up with Dr. Jaquez as an outpatient LFTs are unremarkable Urinalysis showing glucosuria and proteinuria Influenza and COVID test were negative She had elevated lactic acid 2.7 came back to normal at 0.7 Chest x-ray is negative for acute process Patient currently placed on normal saline 75 mL/h 11/23 Patient still complaining from abdominal pain about 8-9 She has poor appetite She still has diarrhea today Creatinine is a 3.7 compared to 3.4 on admission. Hemoglobin 9.9 She had renal ultrasound showing no evidence of hydronephrosis She is kept on ceftriaxone and Flagyl IV fluids are switched to sodium bicarb at 100 mL/h 11/24 Patient still mildly lethargic, she started picking up her appetite no vomiting She has stomach pain after she ate other than that no more abdominal pain She has 1 bowel movement which was liquidy loose Creatinine improving down to 3.2 Electrolytes are replaced Objective - Vital Signs Vital signs: Vital Signs Temp 98.2 F 11/24/24 07:52 Pulse 79 11/24/24 07:52 Resp 16 11/24/24 07:52 BP 167/82 11/24/24 07:52 Pulse Ox 98 11/24/24 07:52 FiO2 Intake & Output 11/23/24 11/24/24 11/24/24 18:59 06:59 18:59 Intake Total 118 Balance 118 Intake: Oral 118 Other: Voiding Method Toilet Toilet Toilet # Voids 3 1 # Bowel Movements 2 - Exam GENERAL: The patient is alert and oriented x3, not in any acute distress. Well developed, well nourished. HEENT: Pupils are round and equally reacting to light. EOMI. No scleral icterus. No conjunctival pallor. Normocephalic, atraumatic. No pharyngeal erythema. No thyromegaly. CARDIOVASCULAR: S1 and S2 present. No murmurs, rubs, or gallops. PULMONARY: Chest is clear to auscultation, no wheezing , no crackles. -ABDOMEN: Soft, mild generalized tenderness, no guarding, no rebound tenderness, nondistended, normoactive bowel sounds. No palpable organomegaly. MUSCULOSKELETAL: No joint swelling or deformity. EXTREMITIES: No cyanosis, clubbing, or pedal edema. NEUROLOGICAL: Gross neurological examination did not reveal any focal deficits. SKIN: No rashes. no petechiae. - Labs CBC & Chem 7: 11/23/24 05:20 11/24/24 04:23 Labs: Abnormal Lab Results - Last 24 Hours (Table) 11/22/24 11/23/24 11/23/24 Range/Units 05:20 17:55 21:16 Chloride (96-109) mmol/L Carbon Dioxide (21.6-31.8) mmol/L BUN (9.0-27.0) mg/dL Creatinine (0.6-1.5) mg/dL Est GFR (CKD-EPI) (>=60) BUN/Creatinine Ratio (12.00-20.00) Ratio Glucose (70-110) mg/dL POC Glucose (mg/dL) 174 H 170 H (70-110) mg/dL Calcium (8.7-10.3) mg/dL Procalcitonin 0.56 H (0.02-0.50) ng/mL 11/24/24 11/24/24 11/24/24 Range/Units 04:23 06:16 12:13 Chloride 111 H (96-109) mmol/L Carbon Dioxide 19.3 L (21.6-31.8) mmol/L BUN 36.7 H (9.0-27.0) mg/dL Creatinine 3.2 H (0.6-1.5) mg/dL Est GFR (CKD-EPI) 19 L (>=60) BUN/Creatinine Ratio 11.47 L (12.00-20.00) Ratio Glucose 149 H (70-110) mg/dL POC Glucose (mg/dL) 150 H 161 H (70-110) mg/dL Calcium 6.4 A* (8.7-10.3) mg/dL Procalcitonin (0.02-0.50) ng/mL Microbiology - Last 24 Hours (Table) 11/22/24 13:57 Stool Culture - Preliminary Stool Assessment and Plan Assessment: Intractable vomiting and diarrhea could be secondary to acute gastroenteritis, could be viral versus bacterial Dehydration secondary to above Acute kidney injury on chronic kidney disease stage III-IV Metabolic acidosis secondary to above Recent section about 3 weeks prior to hospitalization Diabetes mellitus Hypertension Hypothyroidism Plan: Continue with IV fluids ID team consult Monitor creatinine Nephrology team consult Continue with Zofran as needed Labs and medication were reviewed.. Continue same treatment. Continue with symptomatic treatment. Resume home medication. Monitor labs and vitals. DVT and GI prophylaxis. Further recommendations as per clinical course of the patient DVT prophylaxis: Subcutaneous heparin GI Prophylaxis: Pepcid Prognosis is guarded
[2024-11-24 17:35] LABS: Glucose,Whole Blood 176 mg/dL (70-110)
[2024-11-24] MEDS: CHOLESTYRAMINE (WITH SUGAR) 4 GM PACKET PO SCH (17:39)
--- NOTE | 2024-11-24 17:53 | P.PN ---
Subjective Progress Note Date: 11/24/24 Principal diagnosis: Reason for follow-up is fever/gastroenteritis Patient is a 34-year-old female with a past medical history of kidney for diabetes mellitus hypertension CKD stage IV anxiety depression presenting to the hospital for evaluation of nausea vomiting and diarrhea patient also have low-grade fever elevated white count probably this consultation. On today's evaluation that is 11/24/2024,the patient denies any fever or any chills, patient is breathing comfortably on room air, the patient denies chest pain shortness of breath and no significant cough, patient mentions some improvement nausea no further vomiting still having diarrhea. Creatinine is 3.2 no CBC was done today stool studies are pending Objective - Vital Signs Vital signs: Vital Signs Temp 98.2 F 11/24/24 07:52 Pulse 79 11/24/24 07:52 Resp 16 11/24/24 07:52 BP 167/82 11/24/24 07:52 Pulse Ox 98 11/24/24 07:52 FiO2 Intake & Output 11/23/24 11/24/24 11/24/24 18:59 06:59 18:59 Intake Total 118 Balance 118 Intake: Oral 118 Other: Voiding Method Toilet Toilet Toilet # Voids 3 1 # Bowel Movements 2 - Exam GENERAL DESCRIPTION: Middle-age female lying in bed in no distress RESPIRATORY SYSTEM: Unlabored breathing , decreased breath sounds at bases HEART: S1 S2 regular rate and rhythm , ABDOMEN: Soft , no tenderness EXTREMITIES: No edema feet - Labs CBC & Chem 7: 11/23/24 05:20 11/24/24 04:23 Labs: Abnormal Lab Results - Last 24 Hours (Table) 11/22/24 11/23/24 11/23/24 Range/Units 05:20 17:55 21:16 Chloride (96-109) mmol/L Carbon Dioxide (21.6-31.8) mmol/L BUN (9.0-27.0) mg/dL Creatinine (0.6-1.5) mg/dL Est GFR (CKD-EPI) (>=60) BUN/Creatinine Ratio (12.00-20.00) Ratio Glucose (70-110) mg/dL POC Glucose (mg/dL) 174 H 170 H (70-110) mg/dL Calcium (8.7-10.3) mg/dL Procalcitonin 0.56 H (0.02-0.50) ng/mL 11/24/24 11/24/24 11/24/24 Range/Units 04:23 06:16 12:13 Chloride 111 H (96-109) mmol/L Carbon Dioxide 19.3 L (21.6-31.8) mmol/L BUN 36.7 H (9.0-27.0) mg/dL Creatinine 3.2 H (0.6-1.5) mg/dL Est GFR (CKD-EPI) 19 L (>=60) BUN/Creatinine Ratio 11.47 L (12.00-20.00) Ratio Glucose 149 H (70-110) mg/dL POC Glucose (mg/dL) 150 H 161 H (70-110) mg/dL Calcium 6.4 A* (8.7-10.3) mg/dL Procalcitonin (0.02-0.50) ng/mL Microbiology - Last 24 Hours (Table) 11/22/24 13:57 Stool Culture - Preliminary Stool Assessment and Plan (1) SIRS (systemic inflammatory response syndrome) Current Visit: Yes Status: Acute Code(s): R65.10 - SIRS OF NON-INFECTIOUS ORIGIN W/O ACUTE ORGAN DYSFUNCTION SNOMED Code(s): 050531485 (2) Gastroenteritis Current Visit: Yes Status: Acute Code(s): K52.9 - NONINFECTIVE GASTRO ENTERITIS AND COLITIS, UNSPECIFIED SNOMED Code(s): 10461997 Plan: 1patient presented to hospital with acute nausea vomiting and diarrhea in this patient who did have a fever elevated white count concerning for possible bacterial etiology with boyfriend having the same symptoms prior to her 2-stool culture repeat currently pending 3-patient did have resolution of fever white count normalized to continue Rocephin and Flagyl we will add Questran for symptomatic relief of diarrhea and await stool culture to be finalized Dictation was produced using [employer] dictation software. please excuse any grammatical, word or spelling errors. Time with Patient: Less than 30
[2024-11-24 19:47] LABS: Glucose,Whole Blood 197 mg/dL (70-110)
[2024-11-25 05:50] LABS: Glucose,Whole Blood 188 mg/dL (70-110)
[2024-11-25 08:59] LABS: BUN/Creat Ratio 8.57 Ratio (12.00-20.00); Calcium 7.1 mg/dL (8.7-10.3); Carbon Dioxide 26.5 mmol/L (21.6-31.8); Chloride 105 mmol/L (96-109); Glucose 168 mg/dL (70-110); Potassium 3.5 mmol/L (3.5-5.5); Sodium 141 mmol/L (135-145)
--- NOTE | 2024-11-25 11:04 | P.PN ---
Subjective Patient is seen in follow-up for acute kidney injury on chronic kidney disease. Renal function improving. Had 2 loose bowel movements last night. Oral intake gradually improving. Vital signs are stable. General: No acute distress. HEENT: Head exam is unremarkable. LUNGS: No audible rhonchi or wheezes. HEART: Rate and Rhythm are regular. ABDOMEN: Nontender. EXTREMITITES: No edema. Objective - Vital Signs Vital signs: Vital Signs Temp 98.7 F 11/25/24 07:08 Pulse 90 11/25/24 07:08 Resp 16 11/25/24 07:08 BP 159/88 11/25/24 07:08 Pulse Ox 97 11/25/24 07:08 FiO2 Intake & Output 11/24/24 11/25/24 11/25/24 18:59 06:59 18:59 Other: Voiding Method Toilet Toilet Toilet # Voids 5 4 # Bowel Movements 5 1 - Labs CBC & Chem 7: 11/23/24 05:20 11/25/24 04:58 Labs: Abnormal Lab Results - Last 24 Hours (Table) 11/24/24 11/24/24 11/24/24 Range/Units 12:13 17:34 19:45 Creatinine (0.6-1.5) mg/dL Est GFR (CKD-EPI) (>=60) BUN/Creatinine Ratio (12.00-20.00) Ratio Glucose (70-110) mg/dL POC Glucose (mg/dL) 161 H 176 H 197 H (70-110) mg/dL Calcium (8.7-10.3) mg/dL 11/25/24 11/25/24 Range/Units 04:58 05:47 Creatinine 2.8 H (0.6-1.5) mg/dL Est GFR (CKD-EPI) 22 L (>=60) BUN/Creatinine Ratio 8.57 L (12.00-20.00) Ratio Glucose 168 H (70-110) mg/dL POC Glucose (mg/dL) 188 H (70-110) mg/dL Calcium 7.1 L (8.7-10.3) mg/dL Microbiology - Last 24 Hours (Table) 11/22/24 13:57 Stool Culture - Preliminary Stool Assessment and Plan Plan: Assessment: 1. Acute kidney injury secondary to ATN secondary to hypovolemia. Creatinine peaked at 3.7 this admission and is 2.8 today. No hydronephrosis noted on imaging. 2. Chronic kidney disease stage IIIb with baseline creatinine near 2 secondary to diabetic kidney disease. 3. Nausea vomiting and diarrhea possibly from viral gastroenteritis. C. difficile negative. Also tested negative for influenza, RSV and COVID. 4. Metabolic acidosis secondary to acute kidney injury and GI losses. Improved with bicarb drip. 5. Hypertension with chronic kidney disease. 6. Diabetes mellitus. Plan: Change bicarb drip to normal saline at 75 cc an hour. Replace potassium. Encouraged oral intake. Avoid nephrotoxins. Continue to monitor renal function and urine output. Resume metoprolol.
[2024-11-25] MEDS: SODIUM CHLORIDE 0.9% 1,000 ML IV SCH (11:15)
[2024-11-25] MEDS: METOPROLOL TARTRATE 25 MG TAB PO SCH (11:16)
[2024-11-25] MEDS: POTASSIUM CHLORIDE ER 20 MEQ TAB.ER PO STA (11:16)
[2024-11-25 11:52] LABS: Glucose,Whole Blood 301 mg/dL (70-110)
--- NOTE | 2024-11-25 14:45 | P.PN ---
Subjective Progress Note Date: 11/25/24 Principal diagnosis: Reason for follow-up is fever/gastroenteritis Patient is a 34-year-old female with a past medical history of kidney for diabetes mellitus hypertension CKD stage IV anxiety depression presenting to the hospital for evaluation of nausea vomiting and diarrhea patient also have low-grade fever elevated white count probably this consultation. On today's evaluation that is 11/25/2024,the patient remains to be afebrile, patient is on room air not requiring supplemental oxygen and denies any shortness of breath no chest pain or cough.Patient mention improvement with nausea no further vomiting still complaining of diarrhea. Patient did have creatinine 2.8 stool cultures currently pending Objective - Vital Signs Vital signs: Vital Signs Temp 98.3 F 11/25/24 14:05 Pulse 77 11/25/24 14:05 Resp 16 11/25/24 07:08 BP 140/72 11/25/24 14:05 Pulse Ox 96 11/25/24 14:05 FiO2 Intake & Output 11/24/24 11/25/24 11/25/24 18:59 06:59 18:59 Other: Voiding Method Toilet Toilet Toilet # Voids 5 4 # Bowel Movements 5 1 - Exam GENERAL DESCRIPTION: Middle-age female lying in bed in no distress RESPIRATORY SYSTEM: Unlabored breathing , decreased breath sounds at bases HEART: S1 S2 regular rate and rhythm , ABDOMEN: Soft , no tenderness EXTREMITIES: No edema feet - Labs CBC & Chem 7: 11/23/24 05:20 11/25/24 04:58 Labs: Abnormal Lab Results - Last 24 Hours (Table) 11/24/24 11/24/24 11/25/24 Range/Units 17:34 19:45 04:58 Creatinine 2.8 H (0.6-1.5) mg/dL Est GFR (CKD-EPI) 22 L (>=60) BUN/Creatinine Ratio 8.57 L (12.00-20.00) Ratio Glucose 168 H (70-110) mg/dL POC Glucose (mg/dL) 176 H 197 H (70-110) mg/dL Calcium 7.1 L (8.7-10.3) mg/dL 11/25/24 11/25/24 Range/Units 05:47 11:51 Creatinine (0.6-1.5) mg/dL Est GFR (CKD-EPI) (>=60) BUN/Creatinine Ratio (12.00-20.00) Ratio Glucose (70-110) mg/dL POC Glucose (mg/dL) 188 H 301 H (70-110) mg/dL Calcium (8.7-10.3) mg/dL Microbiology - Last 24 Hours (Table) 11/22/24 13:57 Stool Culture - Preliminary Stool Assessment and Plan (1) SIRS (systemic inflammatory response syndrome) Current Visit: Yes Status: Acute Code(s): R65.10 - SIRS OF NON-INFECTIOUS ORIGIN W/O ACUTE ORGAN DYSFUNCTION SNOMED Code(s): 076838219 (2) Gastroenteritis Current Visit: Yes Status: Acute Code(s): K52.9 - NONINFECTIVE GASTROENTE RITIS AND COLITIS, UNSPECIFIED SNOMED Code(s): 96015355 Plan: 1patient presented to hospital with acute nausea vomiting and diarrhea in this patient who did have a fever elevated white count concerning for possible bacterial etiology with boyfriend having the same symptoms prior to her 2-stool culture repeat currently pending 3-patient did have resolution of fever white count normalized, tach improving no nausea no further vomiting still complaining of diarrhea encouraged to mix the Questran in her choice of drink as that will help control her diarrhea still waiting for the stool studies continue with Rocephin and Flagyl Dictation was produced using [employer] dictation software. please excuse any grammatical, word or spelling errors. Time with Patient: Less than 30
[2024-11-25 15:53] LABS: Glucose,Whole Blood 150 mg/dL (70-110)
[2024-11-25] MEDS: BUTALB/APAP/CAFF 50-325-40MG TAB PO PRN (15:53)
[2024-11-25] MEDS: INSULIN GLARGINE (LANTUS) 100 UNIT/ML SYR SQ SCH (15:54)
--- NOTE | 2024-11-25 16:37 | P.PN ---
Subjective This is a pleasant 34 years old female who presents because of persistent vomiting and diarrhea of 1 day duration Patient states her boyfriend have the same symptoms having dizziness and general She has history of recent section about 3 weeks ago it was uneventful. She still has mild vaginal bleeding since the procedure. But no other symptoms or discharge or itching. She is she has been vomiting several times she cannot count but here in the hospital she vomited twice and after given treatment once. But as above no abdominal pain. She has frequent bowel movement about twice per hour. She has little headache but denies any urinary symptoms like urgency or dysuria. No chest pain or dyspnea. She denies smoking alcohol or illicit drugs. She had low-grade fever of 100.8. She was tachycardic 115. CBC showing leukocytosis of 13.6. Creatinine above baseline 3.4 down to 3.1 with baseline 1.7-2.4. She follow-up with Dr. Jaquez as an outpatient LFTs are unremarkable Urinalysis showing glucosuria and proteinuria Influenza and COVID test were negative She had elevated lactic acid 2.7 came back to normal at 0.7 Chest x-ray is negative for acute process Patient currently placed on normal saline 75 mL/h 11/23 Patient still complaining from abdominal pain about 8-9 She has poor appetite She still has diarrhea today Creatinine is a 3.7 compared to 3.4 on admission. Hemoglobin 9.9 She had renal ultrasound showing no evidence of hydronephrosis She is kept on ceftriaxone and Flagyl IV fluids are switched to sodium bicarb at 100 mL/h 11/24 Patient still mildly lethargic, she started picking up her appetite no vomiting She has stomach pain after she ate other than that no more abdominal pain She has 1 bowel movement which was liquidy loose Creatinine improving down to 3.2 Electrolytes are replaced 11/25 Patient still has poor appetite although she started taking out her eating habit, her sugars start to get elevated. I discussed the case with the patient, patient started on Lantus 10 units compared to 30 units at home as she confirms to me and bedside nurse. She still have generalized abdominal pain but looks comfortable. Patient still has diarrhea Creatinine improved today down to 2.8, IV fluids switched to normal saline at 75 mL/h, low potassium replaced started on metoprolol 25 mg. Patient also compla ining from migraine headache and Fioricet was started. Plan of care discussed with the patient in details and she verbalized understanding acceptance She still has some little oozing from post her recent section about 3 to 4 weeks ago. Patient currently is not breast-feeding. Patient also kept on broad-spectrum antibiotic with ceftriaxone and Flagyl with ID team following closely Stool culture was checked today: No Salmonella or Shigella isolated. No E. coli 0157: H7 isolated Active Medications Generic Name Dose Route Start Last Admin Trade Name Freq PRN Reason Stop Dose Admin Acetaminophen 1,000 mg 11/22/24 00:35 11/25/24 09:40 Acetaminophen Tab 500 Mg Tab PO 1,000 mg Q6HR PRN Administration Mild Pain or Fever > 100.5 Acetaminophen/Butalbital/Caffeine 1 each 11/25/24 14:14 11/25/24 15:53 Butalb/Apap/Caff 50-325-40mg Tab PO 1 each Q4HR PRN Administration Headache Cholestyramine Resin 4 gm 11/24/24 18:00 11/25/24 09:33 Cholestyramine (With Sugar) 4 Gm Packet PO Not Given BID@1000,1800 [facility] Famotidine 20 mg 11/23/24 09:00 11/25/24 09:34 Famotidine 20 Mg/2 Ml Vial IV 20 mg Q24HR [facility] Administration Heparin Sodium (Porcine) 5,000 unit 11/22/24 09:00 11/25/24 09:34 Heparin Sodium,Porcine 5,000 Unit/Ml 1 Ml Vial SQ 5,000 unit Q12HR [facility] Administration Hydralazine HCl 100 mg 11/22/24 09:00 11/25/24 16:31 Hydralazine Hcl 50 Mg Tab PO 100 mg TID [facility] Administration Hydralazine HCl 10 mg 11/24/24 11:02 11/25/24 01:59 Hydralazine Hcl 20 Mg/Ml 1 Ml Vial IVP 10 mg Q6HR PRN Administration Blood Pressure - High Ceftriaxone Sodium 2 gm/ 50 mls @ 100 mls/hr 11/22/24 16:30 11/25/24 15:54 Sodium Chloride IVPB 100 mls/hr Q24H [facility] Administration Protocol Sodium Chloride 1,000 mls @ 75 mls/hr 11/25/24 11:00 11/25/24 11:15 Saline 0.9% IV 75 mls/hr .[id number] [facility] Administration Insulin Glargine 10 unit 11/25/24 15:00 11/25/24 15:54 Insulin Glargine (Lantus) 100 Unit/Ml Syr SQ 10 unit DAILY@0700 [facility] Administration Insulin Human Lispro 0 unit 11/23/24 12:30 11/25/24 13:10 Insulin Lispro (Humalog) 100 Unit/Ml 10 Ml Vl SQ 8 unit AC-TID [facility] Administration Protocol Levothyroxine Sodium 112 mcg 11/23/24 06:30 11/25/24 06:13 Levothyroxine 112 Mcg Tab PO 112 mcg DAILY@0630 [facility] Administration Loperamide HCl 2 mg 11/22/24 17:56 11/25/24 10:54 Loperamide 2 Mg Cap PO 2 mg QID PRN Administration Diarrhea Metoprolol Tartrate 25 mg 11/25/24 11:15 11/25/24 11:16 Metoprolol Tartrate 25 Mg Tab PO 25 mg BID [facility] Administration Metronidazole 500 mg 11/22/24 22:00 11/25/24 16:31 Metronidazole 500 Mg Tab PO 500 mg TID [facility] Administration Protocol Naloxone HCl 0.2 mg 11/22/24 00:35 Naloxone 0.4 Mg/Ml 1 Ml Vial IV Q2M PRN Opioid Reversal Nifedipine 90 mg 11/22/24 09:00 11/25/24 09:35 Nifedipine Xl 90 Mg Tab.Er.24 PO 90 mg BID [facility] Administration Ondansetron HCl 4 mg 11/25/24 02:29 Ondansetron 4 Mg/2 Ml Vial IVP Q6HR PRN Nausea And Vomiting Sertraline HCl 50 mg 11/24/24 11:15 11/25/24 09:34 Sertraline 50 Mg Tab PO 50 mg DAILY [facility] Administration Objective - Vital Signs Vital signs: Vital Signs Temp 98.7 F 11/25/24 07:08 Pulse 90 11/25/24 07:08 Resp 16 11/25/24 07:08 BP 159/88 11/25/24 07:08 Pulse Ox 97 11/25/24 07:08 FiO2 Intake & Output 11/24/24 11/25/24 11/25/24 18:59 06:59 18:59 Other: Voiding Method Toilet Toilet Toilet # Voids 5 4 # Bowel Movements 5 1 - Exam GENERAL: The patient is alert and oriented x3, not in any acute distress. Well developed, well nourished. HEENT: Pupils are round and equally reacting to light. EOMI. No scleral icterus. No conjunctival pallor. Normocephalic, atraumatic. No pharyngeal erythema. No thyromegaly. CARDIOVASCULAR: S1 and S2 present. No murmurs, rubs, or gallops. PULMONARY: Chest is clear to auscultation, no wheezing , no crackles. -ABDOMEN: Soft, mild generalized tenderness, no guarding, no rebound tenderness, nondistended, normoactive bowel sounds. No palpable organomegaly. MUSCULOSKELETAL: No joint swelling or deformity. EXTREMITIES: No cyanosis, clubbing, or pedal edema. NEUROLOGICAL: Gross neurological examination did not reveal any focal deficits. SKIN: No rashes. no petechiae. - Labs CBC & Chem 7: 11/23/24 05:20 11/25/24 04:58 Labs: Abnormal Lab Results - Last 24 Hours (Table) 11/24/24 11/24/24 11/25/24 Range/Units 17:34 19:45 04:58 Creatinine 2.8 H (0.6-1.5) mg/dL Est GFR (CKD-EPI) 22 L (>=60) BUN/Creatinine Ratio 8.57 L (12.00-20.00) Ratio Glucose 168 H (70-110) mg/dL POC Glucose (mg/dL) 176 H 197 H (70-110) mg/dL Calcium 7.1 L (8.7-10.3) mg/dL 11/25/24 11/25/24 Range/Units 05:47 11:51 Creatinine (0.6-1.5) mg/dL Est GFR (CKD-EPI) (>=60) BUN/Creatinine Ratio (12.00-20.00) Ratio Glucose (70-110) mg/dL POC Glucose (mg/dL) 188 H 301 H (70-110) mg/dL Calcium (8.7-10.3) mg/dL Microbiology - Last 24 Hours (Table) 11/22/24 13:57 Stool Culture - Preliminary Stool Assessment and Plan Assessment: Intractable vomiting and diarrhea could be secondary to acute gastroenteritis, could be viral versus bacterial Dehydration secondary to above Acute kidney injury on chronic kidney disease stage III-IV Metabolic acidosis secondary to above Recent section about 3 weeks prior to hospitalization Diabetes mellitus, with hyperglycemia Hypertension Hypothyroidism Plan: Continue with IV fluids but changed to normal saline ID team consult Monitor creatinine Nephrology team consult Continue with Zofran as needed Continue with antibiotic Flagyl and ceftriaxone Stool culture showed no growth Start Lantus 10 units and increase gradually as patient is going to eat more Labs and medication were reviewed.. Continue same treatment. Continue with symptomatic treatment. Resume home medication. Monitor labs and vitals. DVT and GI prophylaxis. Further recommendations as per clinical course of the patient DVT prophylaxis: Subcutaneous heparin GI Prophylaxis: Pepcid Prognosis is guarded
[2024-11-25 17:23] LABS: Glucose,Whole Blood 208 mg/dL (70-110)
[2024-11-25 19:49] LABS: Glucose,Whole Blood 173 mg/dL (70-110)
[2024-11-26 05:31] LABS: Glucose,Whole Blood 117 mg/dL (70-110)
[2024-11-26] MEDS: ONDANSETRON 4 MG/2 ML VIAL IVP PRN (06:26)
[2024-11-26 08:20] LABS: Basophils # (A) 0.06 X 10*3/uL (0.00-0.10); Basophils % (A) 0.8 %; Eosinophils # (A) 0.43 X 10*3/uL (0.04-0.35); Eosinophils % (A) 6.1 %; HCT 33.6 % (37.2-46.3); HGB 11.1 g/dL (12.0-15.0); Lymphocytes # (A) 1.72 X 10*3/uL (0.90-5.00); Lymphocytes % (A) 24.4 %; MCH 33.3 pg (27.0-32.0); MCV 100.9 FL (80.0-97.0); Mean Platelet Volume 10.1 FL (9.5-12.2); Monocytes # (A) 0.32 X 10*3/uL (0.20-1.00); Monocytes % (A) 4.5 %; NRBC Per 100 WBC 0 X 10*3/uL (0.00-0.01); Neutrophils % (A) 60.9 %; Platelet Count 269 X 10*3/uL (140-440); RBC 3.33 X 10*6/uL (4.10-5.20); RDW 13.2 % (11.5-14.5); WBC 7.06 X 10*3/uL (4.50-10.00)
[2024-11-26 09:18] LABS: Blood Urea Nitrogen 18.9 mg/dL (9.0-27.0); Calcium 7.1 mg/dL (8.7-10.3); Carbon Dioxide 23.7 mmol/L (21.6-31.8); Chloride 105 mmol/L (96-109); Glucose 125 mg/dL (70-110); Potassium 4.1 mmol/L (3.5-5.5); Sodium 141 mmol/L (135-145)
--- NOTE | 2024-11-26 10:41 | P.PN ---
Subjective Patient is seen in follow-up for acute kidney injury on chronic kidney disease. Renal function stable. Diarrhea significantly improved. Oral intake continues to improve. Vital signs are stable. General: No acute distress. HEENT: Head exam is unremarkable. LUNGS: No audible rhonchi or wheezes. HEART: Rate and Rhythm are regular. ABDOMEN: Nontender. EXTREMITITES: No edema. Objective - Vital Signs Vital signs: Vital Signs Temp 98.5 F 11/26/24 07:38 Pulse 79 11/26/24 07:38 Resp 16 11/26/24 07:38 BP 153/87 11/26/24 07:38 Pulse Ox 95 11/26/24 07:38 FiO2 Intake & Output 11/25/24 11/26/24 11/26/24 18:59 06:59 18:59 Intake Total 800 Balance 800 Intake: Oral 800 Other: Voiding Method Toilet Toilet Toilet # Voids 3 3 1 - Labs CBC & Chem 7: 11/26/24 05:13 11/26/24 05:13 Labs: Abnormal Lab Results - Last 24 Hours (Table) 11/25/24 11/25/24 11/25/24 Range/Units 11:51 15:51 17:22 RBC (4.10-5.20) X 10*6/uL Hgb (12.0-15.0) g/dL Hct (37.2-46.3) % MCV (80.0-97.0) FL MCH (27.0-32.0) pg Immature Gran # (0.00-0.04) X 10*3/uL Eosinophils # (0.04-0.35) X 10*3/uL Anion Gap (4.00-12.00) mmol/L Creatinine (0.6-1.5) mg/dL Est GFR (CKD-EPI) (>=60) BUN/Creatinine Ratio (12.00-20.00) Ratio Glucose (70-110) mg/dL POC Glucose (mg/dL) 301 H 150 H 208 H (70-110) mg/dL Calcium (8.7-10.3) mg/dL 11/25/24 11/26/24 11/26/24 Range/Units 19:48 05:13 05:13 RBC 3.33 L (4.10-5.20) X 10*6/uL Hgb 11.1 L (12.0-15.0) g/dL Hct 33.6 L (37.2-46.3) % MCV 100.9 H (80.0-97.0) FL MCH 33.3 H (27.0-32.0) pg Immature Gran # 0.23 H (0.00-0.04) X 10*3/uL Eosinophils # 0.43 H (0.04-0.35) X 10*3/uL Anion Gap 12.30 H (4.00-12.00) mmol/L Creatinine 2.7 H (0.6-1.5) mg/dL Est GFR (CKD-EPI) 23 L (>=60) BUN/Creatinine Ratio 7.00 L (12.00-20.00) Ratio Glucose 125 H (70-110) mg/dL POC Glucose (mg/dL) 173 H (70-110) mg/dL Calcium 7.1 L (8.7-10.3) mg/dL 11/26/24 Range/Units 05:29 RBC (4.10-5.20) X 10*6/uL Hgb (12.0-15.0) g/dL Hct (37.2-46.3) % MCV (80.0-97.0) FL MCH (27.0-32.0) pg Immature Gran # (0.00-0.04) X 10*3/uL Eosinophils # (0.04-0.35) X 10*3/uL Anion Gap (4.00-12.00) mmol/L Creatinine (0.6-1.5) mg/dL Est GFR (CKD-EPI) (>=60) BUN/Creatinine Ratio (12.00-20.00) Ratio Glucose (70-110) mg/dL POC Glucose (mg/dL) 117 H (70-110) mg/dL Calcium (8.7-10.3) mg/dL Microbiology - Last 24 Hours (Table) 11/22/24 13:57 Stool Culture - Final Stool Assessment and Plan Plan: Assessment: 1. Acute kidney injury secondary to ATN secondary to hypovolemia. Creatinine peaked at 3.7 this admission and is 2.7 today. No hydronephrosis noted on imaging. 2. Chronic kidney disease stage IIIb with baseline creatinine near 2 secondary to diabetic kidney disease. 3. Nausea vomiting and diarrhea possibly from viral gastroenteritis. C. difficile negative. Also tested negative for influenza, RSV and COVID. 4. Metabolic acidosis secondary to acute kidney injury and GI losses. Improved with bicarb drip. 5. Hypertension with chronic kidney disease. 6. Diabetes mellitus. Plan: Maintain IV fluids. Encouraged oral intake. Avoid nephrotoxins. Continue to monitor renal function and urine output. Follow-up outpatient 1 week postdischarge.
[2024-11-26] MEDS: CALCIUM GLUCONATE IN NACL 1 GM in SALINE 1 100ML.BAG IVPB ONE (11:39)
[2024-11-26 12:27] LABS: Glucose,Whole Blood 215 mg/dL (70-110)
--- NOTE | 2024-11-26 15:37 | P.PN ---
Subjective Progress Note Date: 11/26/24 Principal diagnosis: Reason for follow-up is fever/gastroenteritis Patient is a 34-year-old female with a past medical history of kidney for diabetes mellitus hypertension CKD stage IV anxiety depression presenting to the hospital for evaluation of nausea vomiting and diarrhea patient also have low-grade fever elevated white count probably this consultation. On today's evaluation that is 11/26/2024, the patient continues to be afebrile, the patient is on room air and breathing comfortably, the Pt denies having any chest pain or cough, the patient denies having any abdominal pain some nausea but no vomiting or diarrhea has slowed on. Patient white count 7.06 creatinine is 2.7 stool culture has been negative urine for Legionella antigen was negative Objective - Vital Signs Vital signs: Vital Signs Temp 98.5 F 11/26/24 07:38 Pulse 79 11/26/24 07:38 Resp 16 11/26/24 07:38 BP 153/87 11/26/24 07:38 Pulse Ox 95 11/26/24 07:38 FiO2 Intake & Output 11/25/24 11/26/24 11/26/24 18:59 06:59 18:59 Intake Total 800 Balance 800 Intake: Oral 800 Other: Voiding Method Toilet Toilet Toilet # Voids 3 3 1 - Exam GENERAL DESCRIPTION: Middle-age female lying in bed in no distress RESPIRATORY SYSTEM: Unlabored breathing , decreased breath sounds at bases HEART: S1 S2 regular rate and rhythm , ABDOMEN: Soft , no tenderness EXTREMITIES: No edema feet - Labs CBC & Chem 7: 11/26/24 05:13 11/26/24 05:13 Labs: Abnormal Lab Results - Last 24 Hours (Table) 11/25/24 11/25/24 11/25/24 Range/Units 15:51 17:22 19:48 RBC (4.10-5.20) X 10*6/uL Hgb (12.0-15.0) g/dL Hct (37.2-46.3) % MCV (80.0-97.0) FL MCH (27.0-32.0) pg Immature Gran # (0.00-0.04) X 10*3/uL Eosinophils # (0.04-0.35) X 10*3/uL Anion Gap (4.00-12.00) mmol/L Creatinine (0.6-1.5) mg/dL Est GFR (CKD-EPI) (>=60) BUN/Creatinine Ratio (12.00-20.00) Ratio Glucose (70-110) mg/dL POC Glucose (mg/dL) 150 H 208 H 173 H (70-110) mg/dL Calcium (8.7-10.3) mg/dL 11/26/24 11/26/24 11/26/24 Range/Units 05:13 05:13 05:29 RBC 3.33 L (4.10-5.20) X 10*6/uL Hgb 11.1 L (12.0-15.0) g/dL Hct 33.6 L (37.2-46.3) % MCV 100.9 H (80.0-97.0) FL MCH 33.3 H (27.0-32.0) pg Immature Gran # 0.23 H (0.00-0.04) X 10*3/uL Eosinophils # 0.43 H (0.04-0.35) X 10*3/uL Anion Gap 12.30 H (4.00-12.00) mmol/L Creatinine 2.7 H (0.6-1.5) mg/dL Est GFR (CKD-EPI) 23 L (>=60) BUN/Creatinine Ratio 7.00 L (12.00-20.00) Ratio Glucose 125 H (70-110) mg/dL POC Glucose (mg/dL) 117 H (70-110) mg/dL Calcium 7.1 L (8.7-10.3) mg/dL Microbiology - Last 24 Hours (Table) 11/22/24 13:57 Stool Culture - Final Stool Assessment and Plan (1) SIRS (systemic inflammatory response syndrome) Current Visit: Yes Status: Acute Code(s): R65.10 - SIRS OF NON-INFECTIOUS ORIGIN W/O ACUTE ORGAN DYSFUNCTION SNOMED Code(s): 789484143 (2) Gastroenteritis Current Visit: Yes Status: Acute Code(s): K52.9 - NONINFECTIVE GASTROENTERITIS AND COLITIS, UNSPECIFIED SNOMED Code(s): 67800806 Plan: 1patient presented to hospital with acute nausea vomiting and diarrhea in this patient who did have a fever elevated white count concerning for possible bacterial etiology with boyfriend having the same symptoms prior to her 2-stool culture repeat currently pending 3-patient did have resolution of fever white count normalized, culture have been negative so far white count normalized continue Rocephin Flagyl short course of Ceftin and Flagyl on discharge Questran as needed Dictation was produced using [employer] dictation software. please excuse any grammatical, word or spelling errors. Time with Patient: Less than 30
[2024-11-26] MEDS: CALCIUM CARBONATE 500 MG CHEWABLE PO PRN (16:40)
[2024-11-26 17:18] LABS: Glucose,Whole Blood 232 mg/dL (70-110)
[2024-11-26 20:14] LABS: Glucose,Whole Blood 161 mg/dL (70-110)
--- NOTE | 2024-11-26 21:53 | P.PN ---
Subjective This is a pleasant 34 years old female who presents because of persistent vomiting and diarrhea of 1 day duration Patient states her boyfriend have the same symptoms having dizziness and general She has history of recent section about 3 weeks ago it was uneventful. She still has mild vaginal bleeding since the procedure. But no other symptoms or discharge or itching. She is she has been vomiting several times she cannot count but here in the hospital she vomited twice and after given treatment once. But as above no abdominal pain. She has frequent bowel movement about twice per hour. She has little headache but denies any urinary symptoms like urgency or dysuria. No chest pain or dyspnea. She denies smoking alcohol or illicit drugs. She had low-grade fever of 100.8. She was tachycardic 115. CBC showing leukocytosis of 13.6. Creatinine above baseline 3.4 down to 3.1 with baseline 1.7-2.4. She follow-up with Dr. Jaquez as an outpatient LFTs are unremarkable Urinalysis showing glucosuria and proteinuria Influenza and COVID test were negative She had elevated lactic acid 2.7 came back to normal at 0.7 Chest x-ray is negative for acute process Patient currently placed on normal saline 75 mL/h 11/23 Patient still complaining from abdominal pain about 8-9 She has poor appetite She still has diarrhea today Creatinine is a 3.7 compared to 3.4 on admission. Hemoglobin 9.9 She had renal ultrasound showing no evidence of hydronephrosis She is kept on ceftriaxone and Flagyl IV fluids are switched to sodium bicarb at 100 mL/h 11/24 Patient still mildly lethargic, she started picking up her appetite no vomiting She has stomach pain after she ate other than that no more abdominal pain She has 1 bowel movement which was liquidy loose Creatinine improving down to 3.2 Electrolytes are replaced 11/25 Patient still has poor appetite although she started taking out her eating habit, her sugars start to get elevated. I discussed the case with the patient, patient started on Lantus 10 units compared to 30 units at home as she confirms to me and bedside nurse. She still have generalized abdominal pain but looks comfortable. Patient still has diarrhea Creatinine improved today down to 2.8, IV fluids switched to normal saline at 75 mL/h, low potassium replaced started on metoprolol 25 mg. Patient also compla ining from migraine headache and Fioricet was started. Plan of care discussed with the patient in details and she verbalized understanding acceptance She still has some little oozing from post her recent section about 3 to 4 weeks ago. Patient currently is not breast-feeding. Patient also kept on broad-spectrum antibiotic with ceftriaxone and Flagyl with ID team following closely Stool culture was checked today: No Salmonella or Shigella isolated. No E. coli 0157: H7 isolated 11/26 Patient GI symptoms significantly improving no abdominal pain diarrhea resolving She started tolerating diet slowly. And because of this we are going to monitor for another 24 hours Creatinine lowered to 2.7 and she is still on normal saline 75 mL/h Possible discharge 2023. Patient feels she can go home today but she agrees to be monitored for another 24 hours Objective - Vital Signs Vital signs: Vital Signs Temp 98.8 F 11/26/24 14:00 Pulse 79 11/26/24 14:00 Resp 16 11/26/24 14:00 BP 170/95 11/26/24 14:00 Pulse Ox 99 11/26/24 14:00 FiO2 Intake & Output 11/25/24 11/26/24 11/26/24 18:59 06:59 18:59 Intake Total 800 Balance 800 Intake: Oral 800 Other: Voiding Method Toilet Toilet Toilet # Voids 3 3 1 - Exam GENERAL: The patient is alert and oriented x3, not in any acute distress. Well developed, well nourished. HEENT: Pupils are round and equally reacting to light. EOMI. No scleral icterus. No conjunctival pallor. Normocephalic, atraumatic. No pharyngeal erythema. No thyromegaly. CARDIOVASCULAR: S1 and S2 present. No murmurs, rubs, or gallops. PULMONARY: Chest is clear to auscultation, no wheezing , no crackles. -ABDOMEN: Soft, mild generalized tenderness, no guarding, no rebound tenderness, nondistended, normoactive bowel sounds. No palpable organomegaly. MUSCULOSKELETAL: No joint swelling or deformity. EXTREMITIES: No cyanosis, clubbing, or pedal edema. NEUROLOGICAL: Gross neurological examination did not reveal any focal deficits. SKIN: No rashes. no petechiae. - Labs CBC & Chem 7: 11/26/24 05:13 11/26/24 05:13 Labs: Abnormal Lab Results - Last 24 Hours (Table) 11/25/24 11/26/24 11/26/24 Range/Units 19:48 05:13 05:13 RBC 3.33 L (4.10-5.20) X 10*6/uL Hgb 11.1 L (12.0-15.0) g/dL Hct 33.6 L (37.2-46.3) % MCV 100.9 H (80.0-97.0) FL MCH 33.3 H (27.0-32.0) pg Immature Gran # 0.23 H (0.00-0.04) X 10*3/uL Eosinophils # 0.43 H (0.04-0.35) X 10*3/uL Anion Gap 12.30 H (4.00-12.00) mmol/L Creatinine 2.7 H (0.6-1.5) mg/dL Est GFR (CKD-EPI) 23 L (>=60) BUN/Creatinine Ratio 7.00 L (12.00-20.00) Ratio Glucose 125 H (70-110) mg/dL POC Glucose (mg/dL) 173 H (70-110) mg/dL Calcium 7.1 L (8.7-10.3) mg/dL 11/26/24 11/26/24 11/26/24 Range/Units 05:29 12:26 17:15 RBC (4.10-5.20) X 10*6/uL Hgb (12.0-15.0) g/dL Hct (37.2-46.3) % MCV (80.0-97.0) FL MCH (27.0-32.0) pg Immature Gran # (0.00-0.04) X 10*3/uL Eosinophils # (0.04-0.35) X 10*3/uL Anion Gap (4.00-12.00) mmol/L Creatinine (0.6-1.5) mg/dL Est GFR (CKD-EPI) (>=60) BUN/Creatinine Ratio (12.00-20.00) Ratio Glucose (70-110) mg/dL POC Glucose (mg/dL) 117 H 215 H 232 H (70-110) mg/dL Calcium (8.7-10.3) mg/dL Microbiology - Last 24 Hours (Table) 11/22/24 13:57 Stool Culture - Final Stool Assessment and Plan Assessment: Intractable vomiting and diarrhea could be secondary to acute gastroenteritis, could be viral versus bacterial Dehydration secondary to above Acute kidney injury on chronic kidney disease stage III-IV Metabolic acidosis secondary to above Recent section about 3 weeks prior to hospitalization Diabetes mellitus, with hyperglycemia Hypertension Hypothyroidism Plan: Continue with IV fluids but changed to normal saline ID team consult Monitor creatinine Nephrology team consult Continue with Zofran as needed Continue with antibiotic Flagyl and ceftriaxone Stool culture showed no growth Start Lantus 10 units and increase gradually as patient is going to eat more Labs and medication were reviewed.. Continue same treatment. Continue with symptomatic treatment. Resume home medication. Monitor labs and vitals. DVT and GI prophylaxis. Further recommendations as per clinical course of the patient DVT prophylaxis: Subcutaneous heparin GI Prophylaxis: Pepcid Prognosis is guarded
[2024-11-27 02:12] VITALS: RESP 18
[2024-11-27 05:56] LABS: Glucose,Whole Blood 139 mg/dL (70-110)
[2024-11-27 07:50] VITALS: BP 162/76; PULSE 79; TEMP 98.6
[2024-11-27 09:22] LABS: BUN/Creat Ratio 6.87 Ratio (12.00-20.00); Blood Urea Nitrogen 15.8 mg/dL (9.0-27.0); Carbon Dioxide 25.9 mmol/L (21.6-31.8); Chloride 106 mmol/L (96-109); Glucose 144 mg/dL (70-110); Magnesium 1.8 mg/dL (1.5-2.4); Potassium 4.2 mmol/L (3.5-5.5); Sodium 140 mmol/L (135-145)
[2024-11-27 12:24] LABS: Glucose,Whole Blood 236 mg/dL (70-110)
--- NOTE | 2024-11-27 12:24 | P.PN ---
Subjective Progress Note Date: 11/27/24 Patient is seen in follow-up for acute kidney injury on chronic kidney disease. Renal function stable. Diarrhea significantly improved. Oral intake continues to improve. piter wants to go home Vital signs are stable. General: No acute distress. HEENT: Head exam is unremarkable. LUNGS: No audible rhonchi or wheezes. HEART: Rate and Rhythm are regular. ABDOMEN: Nontender. EXTREMITITES: No edema. Objective - Vital Signs Vital signs: Vital Signs Temp 98.6 F 11/27/24 06:58 Pulse 79 11/27/24 06:58 Resp 18 11/27/24 06:58 BP 162/76 11/27/24 06:58 Pulse Ox 97 11/27/24 06:58 FiO2 Intake & Output 11/26/24 11/27/24 11/27/24 18:59 06:59 18:59 Other: Voiding Method Toilet Toilet # Voids 1 2 - Labs CBC & Chem 7: 11/26/24 05:13 11/27/24 05:20 Labs: Abnormal Lab Results - Last 24 Hours (Table) 11/26/24 11/26/24 11/26/24 Range/Units 12:26 17:15 20:13 Creatinine (0.6-1.5) mg/dL Est GFR (CKD-EPI) (>=60) BUN/Creatinine Ratio (12.00-20.00) Ratio Glucose (70-110) mg/dL POC Glucose (mg/dL) 215 H 232 H 161 H (70-110) mg/dL Calcium (8.7-10.3) mg/dL 11/27/24 11/27/24 Range/Units 05:20 05:54 Creatinine 2.3 H (0.6-1.5) mg/dL Est GFR (CKD-EPI) 28 L (>=60) BUN/Creatinine Ratio 6.87 L (12.00-20.00) Ratio Glucose 144 H (70-110) mg/dL POC Glucose (mg/dL) 139 H (70-110) mg/dL Calcium 7.0 L (8.7-10.3) mg/dL Microbiology - Last 24 Hours (Table) 11/22/24 13:57 Stool Culture - Final Stool Assessment and Plan Assessment: Assessment: 1. Acute kidney injury secondary to ATN secondary to hypovolemia. Creatinine peaked at 3.7 this admission and is 2.7 -> 2.3 today. No hydronephrosis noted on imaging. 2. Chronic kidney disease stage IIIb with baseline creatinine near 2 secondary to diabetic kidney disease. 3. Nausea vomiting and diarrhea possibly from viral gastroenteritis. C. difficile negative. Also tested negative for influenza, RSV and COVID. 4. Metabolic acidosis secondary to acute kidney injury and GI losses. Improved with bicarb drip. 5. Hypertension with chronic kidney disease. 6. Diabetes mellitus. Plan: s/p IV fluids. Encouraged oral intake. Avoid nephrotoxins. Continue to monitor renal function and urine output. stable from nephrology stand point, repeat BMP in 1 week, Follow-up outpatient 1 week post discharge.
--- NOTE | 2024-11-27 14:56 | P.PN ---
Subjective Progress Note Date: 11/27/24 Principal diagnosis: Reason for follow-up is fever/gastroenteritis Patient is a 34-year-old female with a past medical history of kidney for diabetes mellitus hypertension CKD stage IV anxiety depression presenting to the hospital for evaluation of nausea vomiting and diarrhea patient also have low-grade fever elevated white count probably this consultation. On today's evaluation that is 11/27/2024, patient did not have any fever and denies any chills, patient is breathing comfortably on room air, patient with no chest pain or cough patient did not have any abdominal pain nausea vomiting and did have resolution of her diarrhea. Patient did have a creatinine of 2.3 stool studies has been negative Objective - Vital Signs Vital signs: Vital Signs Temp 98.6 F 11/27/24 06:58 Pulse 79 11/27/24 06:58 Resp 18 11/27/24 06:58 BP 162/76 11/27/24 06:58 Pulse Ox 97 11/27/24 06:58 FiO2 Intake & Output 11/26/24 11/27/24 11/27/24 18:59 06:59 18:59 Other: Voiding Method Toilet Toilet # Voids 1 2 - Exam GENERAL DESCRIPTION: Middle-age female lying in bed in no distress RESPIRATORY SYSTEM: Unlabored breathing , decreased breath sounds at bases HEART: S1 S2 regular rate and rhythm , ABDOMEN: Soft , no tenderness EXTREMITIES: No edema feet - Labs CBC & Chem 7: 11/26/24 05:13 11/27/24 05:20 Labs: Abnormal Lab Results - Last 24 Hours (Table) 11/26/24 11/26/24 11/27/24 Range/Units 17:15 20:13 05:20 Creatinine 2.3 H (0.6-1.5) mg/dL Est GFR (CKD-EPI) 28 L (>=60) BUN/Creatinine Ratio 6.87 L (12.00-20.00) Ratio Glucose 144 H (70-110) mg/dL POC Glucose (mg/dL) 232 H 161 H (70-110) mg/dL Calcium 7.0 L (8.7-10.3) mg/dL 11/27/24 11/27/24 Range/Units 05:54 12:05 Creatinine (0.6-1.5) mg/dL Est GFR (CKD-EPI) (>=60) BUN/Creatinine Ratio (12.00-20.00) Ratio Glucose (70-110) mg/dL POC Glucose (mg/dL) 139 H 236 H (70-110) mg/dL Calcium (8.7-10.3) mg/dL Assessment and Plan (1) SIRS (systemic inflammatory response syndrome) Status: Acute Code(s): R65.10 - SIRS OF NON-INFECTIOUS ORIGIN W/O ACUTE ORGAN DYSFUNCTION SNOMED Code(s): 980079251 (2) Gastroenteritis Status: Acute Code(s): K52.9 - NONINFECTIVE GASTROENTERITIS AND COLITIS, UNSPECIFIED SNOMED Code(s): 95583777 Plan: 1patient presented to hospital with acute nausea vomiting and diarrhea in this patient who did have a fever elevated white count concerning for possible bacterial etiology with boyfriend having the same symptoms prior to her 2-stool culture repeat currently pending 3-patient did have resolution of fever white count normalized, culture have been negative so far white count normalized 4plan is to finish therapy with short course of Ceftin and Flagyl on discharge Questran as needed discussed with the patient Dictation was produced using [employer] dictation software. please excuse any grammatical, word or spelling errors. Time with Patient: Less than 30
--- NOTE | 2024-11-27 20:35 | P.DS ---
Providers Date of admission: 11/22/24 00:40 Attending physician: Giana Fajardo MD Consults: 11/22/24 08:31 Consult Physician Urgent Consulting Provider: Claudia Stone Consult Reason/Comments: FEVER , high wbc Do you want consulting provider notified?: Yes 11/22/24 16:58 Consult Physician Urgent Consulting Provider: Jorge Weiss Consult Reason/Comments: KAYLIN Do you want consulting provider notified?: Yes Primary care physician: [facility] Course: Diagnoses: Intractable vomiting and diarrhea secondary to acute gastroenteritis, improved with antibiotic Dehydration secondary to above Acute kidney injury on chronic kidney disease stage III, significantly improved upon discharge Metabolic acidosis secondary to above. Resolved Recent section about 3 weeks prior to hospitalization. Diabetes mellitus, with hyperglycemia Hypertension Hypothyroidism Hospital course: This is a pleasant 34 years old female who presents because of persistent vomiting and diarrhea of 1 day duration Patient was found to have acute gastroenteritis and sepsis with fever and leukocytosis, evaluated by infectious disease team and foreign exchange trader as her creatinine was elevated at 3.4 on admission with baseline 1.7-2.4. She was treated with antibiotics ceftriaxone and Flagyl and IV fluid. As well as more insulin coverage and resuming her blood pressure medication. Patient symptoms improved slowly and gradually on the day of discharge she denies abdominal pain, diarrhea stopped, last bowel movement was yesterday morning it was somewhat loose but since then no more bowel movement. She tolerates diet well yesterday and today morning. She denies any other new complaint. Since yesterday she thinks was ready to go home Her creatinine improved today down to 2.3 Patient was cleared for discharge by ID team with recommendation for Ceftin and Flagyl for short course as well as by foreign exchange trader Problems and management plan were discussed with the patient and he verbalized understanding and acceptance Patient was found stable and can be discharged home in guarded prognosis however he needs follow-up as an outpatient. Patient was instructed to follow up with PCP Dr. Navarrete within one week and patient agrees Patient was instructed to follow-up with her foreign exchange trader Dr. Jaquez in 1 week and she agrees Physical exam Gen: patient is a AAOx3, no distress CVS: S1-S2, RRR, no murmur Lungs: B/L CTA, no wheezing Abdomen: soft, no distention, no tenderness, positive bowel sounds Extremity: no leg edema or induration Time spent more than 35 minutes Patient Condition at Discharge: Good Plan - Discharge Summary Discharge Rx Participant: No New Discharge Prescriptions: New Cholestyramine (with Sugar) [Questran Packet] 4 gm PO BID@1000,1800 PRN 3 Days #6 packet PRN Reason: Diarrhea cefuroxime axetiL [Ceftin] 500 mg PO BID 7 Days #14 tab metroNIDAZOLE [Flagyl] 500 mg PO BID 7 Days #14 tab Continue Ferrous Sulfate [Iron (65 MG Elemental)] 325 mg PO BID Insulin Lispro [humaLOG Kwikpen] 5 units SQ AC-TID Folic Acid 1 mg PO DAILY NIFEdipine [Adalat CC] 90 mg PO BID Ergocalciferol [Vitamin D2 (1250 Mcg = 05999 Iu)] 1,250 mcg PO Q7D hydrALAZINE HCL [Apresoline] 100 mg PO Q8H Insulin Glargine,Hum.rec.anlog [Lantus Solostar Pen] 15 units SQ DAILY Albuterol Inhaler [Ventolin Hfa Inhaler] 2 puff INHALATION RT-Q8H PRN PRN Reason: Shortness Of Breath Metoprolol Succinate (ER) [Toprol XL] 50 mg PO DAILY Levothyroxine Sodium [Synthroid] 112 mcg PO DAILY Sertraline [Zoloft] 50 mg PO DIRECTED Discharge Medication List Ferrous Sulfate [Iron (65 MG Elemental)] 325 mg PO BID 01/23/23 [History] Folic Acid 1 mg PO DAILY 01/23/23 [History] Insulin Lispro [humaLOG Kwikpen] 5 units SQ AC-TID 10/24/23 [History] Ergocalciferol [Vitamin D2 (1250 Mcg = 03152 Iu)] 1,250 mcg PO Q7D 05/21/24 [H istory] NIFEdipine [Adalat CC] 90 mg PO BID 05/21/24 [History] hydrALAZINE HCL [Apresoline] 100 mg PO Q8H 05/21/24 [History] Insulin Glargine,Hum.rec.anlog [Lantus Solostar Pen] 15 units SQ DAILY 09/17/24 [History] Albuterol Inhaler [Ventolin Hfa Inhaler] 2 puff INHALATION RT-Q8H PRN 11/22/24 [History] Levothyroxine Sodium [Synthroid] 112 mcg PO DAILY 11/22/24 [History] Metoprolol Succinate (ER) [Toprol XL] 50 mg PO DAILY 11/22/24 [History] Sertraline [Zoloft] 50 mg PO DIRECTED 11/22/24 [History] Cholestyramine (with Sugar) [Questran Packet] 4 gm PO BID@1000,1800 PRN 3 Days #6 packet 11/27/24 [Rx] cefuroxime axetiL [Ceftin] 500 mg PO BID 7 Days #14 tab 11/27/24 [Rx] metroNIDAZOLE [Flagyl] 500 mg PO BID 7 Days #14 tab 11/27/24 [Rx] Follow up Appointment(s)/Referral(s): Rani Fuchs MD [Primary Care Provider] - 1-2 days Jorge Weiss DO [STAFF PHYSICIAN] - 1 Week Claudia Stone MD [STAFF PHYSICIAN] - As Needed Ambulatory/Diagnostic Orders: Basic Metabolic Panel [LAB.AMB] Time Frame: 3 Days, Location: None Selected Activity/Diet/Wound Care/Special Instructions: Low-fat diet Activity is restricted till you see your doctor Discharge Disposition: HOME SELF-CARE
== END 2024-11-27 13:50 | disposition home or self-care (01) | DRG 776 ==
LOC: EC 18:28 → 6NMEDSUR 11-22 00:39 → OBSVTOIN 11-22 00:40 → 6NMEDSUR 11-22 18:31
PROVIDERS: ADMIT Internal Medicine; ATTEND Internal Medicine
DX: O99.63 Diseases of the digestive system complicating the puerperium (principal); N17.0 Acute kidney failure with tubular necrosis; E87.20 Acidosis, unspecified; N18.4 Chronic kidney disease, stage 4 (severe); E83.51 Hypocalcemia; R65.10 Systemic inflammatory response syndrome (SIRS) of non-infectious origin without acute organ dysfunction; E11.22 Type 2 diabetes mellitus with diabetic chronic kidney disease; O99.13 Other diseases of the blood and blood-forming organs and certain disorders involving the immune mechanism complicating the puerperium; O90.49 Other postpartum acute kidney failure; E03.9 Hypothyroidism, unspecified; I12.9 Hypertensive chronic kidney disease with stage 1 through stage 4 chronic kidney disease, or unspecified chronic kidney disease; E11.65 Type 2 diabetes mellitus with hyperglycemia; Z79.4 Long term (current) use of insulin; E86.0 Dehydration; E86.1 Hypovolemia; K52.9 Noninfective gastroenteritis and colitis, unspecified; Z88.8 Allergy status to other drugs, medicaments and biological substances; Z79.890 Hormone replacement therapy; Z79.899 Other long term (current) drug therapy
CPT/HCPCS: 36415; 71046; 76770; 80048; 80053; 81001; 81025; 83605; 83735; 84100; 84145; 85025; 86140; 87045; 87046; 87324; 87449; 87636; 96361; 96365; 96372; 96375; 96376; 99285

== ENCOUNTER → 2025-03-30 | Outpatient (CLI) | payer BC, OTHER ==
--- NOTE | 2025-03-30 09:24 | XR ---
EXAMINATION TYPE: XR chest 2V DATE OF EXAM: 03/30/2025 9:20 AM COMPARISON: 11/21/24 CLINICAL INDICATION: Female, 34 years old with history of Z76.82 AWAITING ORGAN TRANSPL, Chest pain TECHNIQUE: XR chest 2V views of the chest are obtained. FINDINGS: There is no focal air space opacity. No evidence for pneumothorax. No pleural effusion. The cardiac silhouette size is within normal limits. The osseous structures are grossly intact. IMPRESSION: 1. No acute cardiopulmonary process. [facility], , 03/30/2025 9:22 AM
[2025-03-30 16:05] LABS: Cholesterol 226.00 mg/dL (0.00-200.00); GGT 11 U/L (0-38); HDL Cholesterol 33.80 mg/dL (40.00-60.00); LDH 163 U/L (120-246); LDL Cholesterol,Calculated 146.4 mg/dL (0.0-131.0); T4, Free (Free Thyroxine) 1.11 ng/dL (0.80-1.80); Triglycerides 229.00 mg/dL (0.00-149.00); VLDL Calculation 45.80 mg/dL (5.00-40.00)
[2025-03-30 16:38] LABS: Hepatitis C IgG Antibody Nonreactive (Nonreactive)
[2025-03-30 16:52] LABS: ALT 25 U/L (8-44); AST 15 U/L (13-35); Albumin 3.8 g/dL (3.8-4.9); Albumin/Globulin Ratio 1.58 Ratio (1.60-3.17); Alkaline Phosphatase 134 U/L (41-126); Anion Gap 10.40 mmol/L (4.00-12.00); BUN/Creat Ratio 12.81 Ratio (12.00-20.00); Blood Urea Nitrogen 34.6 mg/dL (9.0-27.0); Calcium 8.4 mg/dL (8.7-10.3); Carbon Dioxide 22.6 mmol/L (21.6-31.8); Chloride 101 mmol/L (96-109); Globulin 2.4 g/dL (1.6-3.3); Glucose 583 mg/dL (70-110); Potassium 4.8 mmol/L (3.5-5.5); Sodium 134 mmol/L (135-145); Total Protein 6.2 g/dL (6.2-8.2)
[2025-03-30 18:53] LABS: HIV 2 AB Non-Reactive (Non-Reactive); HIV AB P24 Non-Reactive (Non-Reactive); HIV P24 AG Non-Reactive (Non-Reactive)
== END | disposition home or self-care (01) ==
LOC: LABWHC1 08:40
PROVIDERS: ATTEND Internal Medicine
DX: E03.9 Hypothyroidism, unspecified (principal); E11.65 Type 2 diabetes mellitus with hyperglycemia; Z79.4 Long term (current) use of insulin
CPT/HCPCS: 36415; 71046; 80053; 80061; 82043; 82248; 82570; 82977; 83036; 83615; 84439; 84443; 86480; 86644; 86663; 86704; 86780; 86803; 86900; 86901; 87390; 87522